=== PATIENT | female | born 1970 | race Caucasian/White ===

== ENCOUNTER → 2017-04-19 10:15 | Outpatient (CLI) | payer MEDICAID ==
[2016-07-28 09:26] VITALS: BMI 24.7
[~2017-04-19 10:15] MED LIST: AMITRIPTYLINE H50 MG PO; ANASTROZOLE1 MG PO; ASPIRIN EC81 M1 PO; BACLOFEN10 MG PO; BAYER CHEWABLE81 MG PO; BENTYL 20 MG TA20 MG PO; BRILINTA90 MG PO; CYCLOBENZAPRINE10 MG PO; CYMBALTA60 MG PO; D-AMPHETAMINE PO; EFFEXOR XR150 MG PO; EFFEXOR XR75 MG PO; HYDROCODON-ACE1 EAC7 PO; HYDROCODONE-APA1 TAB PO; KLONOPIN0.5 MG PO; KLONOPIN1 MG PO; LISINOPRIL10 MG PO; LISINOPRIL2.5 MG PO; LOPRESSOR25 MG PO; OXYBUTYNIN CHLOR5 MG PO; PLAVIX75 MG PO; PRAVACHOL20 MG PO; PRILOSEC20 MG PO; REQUIP1 MG PO; REQUIP4 MG; VALIUM5 MG PO; WELLBUTRIN75 MG PO; XARELTO20 MG PO; ZANAFLEX4 MG PO
== END | disposition home or self-care (01) ==
LOC: D.MRI 10:15
DX: G89.4 Chronic pain syndrome (principal); M54.2 Cervicalgia; M47.892 Other spondylosis, cervical region

== ENCOUNTER 2017-06-09 11:12 | Outpatient (CLI) | payer MEDICAID ==
[~2017-06-09] VITALS: Ht 170.2 cm; Wt 68.2 kg
--- NOTE | ~2017-06-09 | HEMODYNAMI ---
PATIENT:FABIAN CHEEMA MEDICAL RECORD: [id number] : 68 LOCATION:[facility] ADMISSION DATE: 06/09/17 Generatedon:06/09/201713:43 Patient name: FABIAN CHEEMA Patient #: [id number] SSN: : [birth year] Date of study: 06/09/2017 Page: Of Hemodynamic Procedure Report Patient Data Patient Demographics Procedure consent was obtained First Name: FABIAN Gender: Female Last Name: ANETTE : 1970 Middle Initial: D Age: 46 year(s) Patient #: [id number] Race: Additional ID: [id number] Contact details [address]: [address] [place] [address] [place] State: [place] City: [place] Zip code: [address] Past Medical History Allergies Allergen Reaction Date Comments Reported Penicillins 12/06/2014 Other allergy 06/09/2017 PCN, Ropinirole Admission Admission Data Admission Date: 06/09/2017 Admission Time: 11:12 Height (in.): 68 BSA: 1.84 (m2) Height (cm.): 172.72 BMI: 23.72 (kg/m2) Weight (lbs.): 156 Weight (kg.): 70.76 Lab Results Lab Result Date: 06/09/2017 Lab Result Time: 0:00 Biochemistry Name Units Result Min Max BUN mg/dl 10 --(-*--)-- 7 18 Creatinine mg/dl 0.6 --(*---)-- 0.6 1.3 CBC Name Units Result Min Max Hemoglobin g/dl 14.9 --(-*--)-- 13.5 17.5 Procedure Procedure Types Cath Procedure Diagnostic Procedure [facility] w/Coronaries PCI Procedure Coronary Stent Initial Miscellaneous Procedures Moderate Sedation up to 15 minutes Procedure Description Procedure Date Procedure Date: 06/09/2017 Procedure Start Time: 13:13 Procedure End Time: 13:38 Procedure Staff Name Function Alok Pan RT Scrub Scottie Beaulieu MD Performing Physician Darcy Villa RN Nurse Floresita Escamilla RT Monitor Procedure Data Cath Procedure Fluoroscopy Diagnostic fluoroscopy Total fluoroscopy Time: 4.7 time: 4.7 min min Diagnostic fluoroscopy Total fluoroscopy dose: 839 dose: 839 mGy mGy Contrast Material Contrast Material Type Amount (ml) Isovue 300 111 Entry Location Entry Primary Successful Side Size Upsize Upsize Entry Closure Succes sful Closure Location (Fr) 1 (Fr) 2 (Fr) Remarks Device Remarks Femoral Right 5 Fr 6 Fr Exoseal artery Short Estimated blood loss: 10 ml Diagnostic catheters Device Type Used For End Catheter Placement Cordis 5Fr JL 4.0 Procedure Catheter (MP) Cordis 5Fr 3DRC Catheter Procedure (MP) Cordis 5Fr Pigtail Procedure Catheter (MP) Procedure Complications No complications Procedure Medications Medication Administration Route Dosage Oxygen NC 2 l/min Heparin Flush Bag added to field 2 bags (1000units/500ml NS) Lidocaine 2% added to field 20 Refer to Anesthesia Notes for Sedation Medications Heparin Bolus I.V. 4000 units Integrilin (Bolus I.V. 6.2 ml 2mg/ml) Plavix P.O. 600 mg Hemodynamics Rest HGB: 14.9 (g/dl) O2 Consumption: Estimated: 175.92 (ml/min) O2 Consumption index ed: Estimated:95.61 (ml/min/m) Heart Rate: 61 (bpm) Pressure Samples Time Site Value (mmHg) Purpose Heart Use Rate(bpm) 13:19 LV 100/2,19 Snapshot 52 13:20 LV 102/3,21 Pullback 53 13:20 AO 98/54(74) Pullback 53 Gradients Valve Time Site 1 Site 2 Mean SEP/DFP Peak To Heart Use (mmHg) (sec/min) Peak Rate (mmHg) (bpm) Aortic 13:20 LV AO 10 15 4 53 102/3,21 98/54(74) Calculations Valve P-P Mean Valve Index Valve Source Name Gradient Area Flow (cm2) Aortic 4 10 4 10 Snapshots Pre Cath Intra NCS Post Cath Vital Signs Time Heart Resp SPO2 NIBP (mmHg) Rhythm Pain Status Sedation Rate (ipm) (%) Level (bpm) 12:52:55 62 32 99 144/68(118) NSR 4 (11) , 10(A) Distressing 12:57:13 58 19 100 141/80(119) NSR 4 (11) , 10(A) Distressing 13:01:27 62 30 100 148/85(136) NSR 4 (11) , 10(A) Distressing 13:05:42 59 18 99 147/84(124) NSR 4 (11) , 8(A) Distressing 13:09:51 61 16 97 108/67(83) NSR 0 (11) , No 6(A) pain 13:13:59 52 16 99 109/62(86) NSR 0 (11) , No 6(A) pain 13:18:11 51 16 99 98/52(73) NSR 0 (11) , No 6(A) pain 13:22:19 52 16 99 97/53(73) NSR 0 (11) , No 6(A) pain 13:26:27 55 16 99 94/51(68) NSR 0 (11) , No 6(A) pain 13:30:33 52 14 99 93/52(66) NSR 0 (11) , No 6(A) pain 13:34:34 58 14 99 110/67(85) NSR 0 (11) , No 6(A) pain 13:41:16 68 16 99 155/88(107) NSR 0 (11) , No 8(A) pain Medications Time Medication Route Dose Verified Delivered Reason Notes Effectiveness by by 12:55:02 Oxygen NC 2 Scottie Darcy Per physician l/min St. Erik Villa RN, MD 12:55:12 Heparin Flush added 2 Scottie Rubin used for [facility] (1000units/500ml field MD PATHAK NS) 12:55:21 Lidocaine 2% added 20ml Scottie Rubin used for to vial [place] procedure field MD PATHAK 13:06:34 Refer to Scottie Rubin Per physician Dr Simmons Anesthesia Notes St. Erik Beaulieu at for Sedation MD PATHAK bedside Medications for sedation 13:21:53 Heparin Bolus I.V. 4000 Scottie Darcy for dose units St. Erik Villa RN anticoagulation verified wt dr edwards 13:24:03 Integrilin I.V. 6.2 Scottie Darcy for wasted (Bolus 2mg/ml) ml St. Erik Villa RN antiplatelet 3.8ml MD therapy 13:41:26 Plavix P.O. 600 Scottie Taveras for mg BrittneeHayes Villa RN antiplatelet MD therapy Procedure Log Time Note 12:38:37 Patient Height : 172.72 cm 12:38:44 Patient Weight : 70.76 kg 12:40:29 Diagnostic Cath status Elective 12:40:31 Alok Pan RT(R) (CV) sent for patient. Start room use. 12:40:33 Time tracking: Regular hours 12:40:38 Plan of Care:Hemodynamics will remain stable., Cardiac rhythm will remain stable., Comfort level will be maintained., Respiratory function will remain adequate., Patient/ family verbilizes understanding of procedure., Procedure tolerated without complication., Recovers from procedure without complications.. 12:40:48 Patient received from Pre/Post Procedure Room to CCL 2 Alert and oriented. Tansferred to table in Supine position. 12:41:49 H&P Date Dictated: 06/02/2017 Within 30 days and on chart., H&P Addendum completed by physician on day of procedure. (MUST COMPLETE FOR ALL OUTPATIENTS). 12:41:58 Family in waiting room. 12:42:00 Patient NPO since Midnight. 12:42:28 Patient allergic to Other allergyPCN, Ropinirole 12:51:34 Correct patient and procedure confirmed by team. 12:51:34 Warm blankets applied, and sandra hugger turned on for patient comfort. 12:51:36 Signed procedure consent form obtained from patient. 12:51:38 ECG and BP/O2 sat monitors applied to patient. 12:51:39 Vital chart was started 12:51:43 Baseline sample Acquired. 12:51:47 Rhythm: sinus rhythm 12:51:48 Full Disclosure recording started 12:51:53 Is the patient allergic to Iodine/contrast media? No. 12:52:01 Is patient on blood thinner?No 12:52:06 Patient diabetic? No. 12:52:39 Snore? Yes 12:52:40 Sleep apnea? No 12:52:45 Dentures? No ? 12:52:52 Patient pain scale 4/10 ?. 12:53:08 IV patent on arrival in left forearm with 0.9% NaCl at [facility]. 12:53:56 Lab Result : Hemoglobin 14.9 g/dl 12::56 Lab Result : Creatinine 0.6 mg/dl 12:53:56 Lab Result : BUN 10 mg/dl 12:54:01 Lab results completed and on chart. 12:54:05 Right groin area was prepped with chlora-prep and draped in sterile fashion 12:54:07 Sharps counted by scrub and verified by R.N. 12:54:07 Alarms reviewed by R. N. 12:54:08 Physician paged 12:55:02 Oxygen 2 l/min NC was administered by Darcy Villa RN; Per physician; 12:55:12 Heparin Flush Bag (1000units/500ml NS) 2 bags added to field was administered by Scottie Beaulieu MD; used for procedure; 12:55:21 Lidocaine 2% 20ml vial added to field was administered by Scottie Beaulieu MD; used for procedure; 13:02:06 Physician arrived 13:02:08 --------ALL STOP TIME OUT------ 13:02:09 Final Timeout: patient, procedure, and site verified with staff and physician. All members of the team are in agreement. 13:02:12 Right groin site verified by team. 13:02:24 Sedation plan: IV Moderate Sedation Propofol 13:02:31 Use device set Femoral Dx 13:02:32 Bag Decanter opened to sterile field. 13:02:32 Acist Syringe opened to sterile field. 13:02:33 Terumo 5Fr [place] Sheath opened to sterile field. 13:02:33 Medline Cath Pack opened to sterile field. 13:02:34 St Edwin 260cm J .035 wire opened to sterile field. 13:02:35 Acist Manifold opened to sterile field. 13:02:35 Acist Hand Control opened to sterile field. 13:02:36 Tegaderm 4 x 4 opened to sterile field. 13:02:36 Diagnostic Infinity 5Fr Multipack catheter opened to sterile field. 13:06:34 Refer to Anesthesia Notes for Sedation Medications was administered by Scottie Beaulieu MD; Per physician; Dr Simmons at bedside for sedation 13:07:31 Zero performed for pressure channel P1 13:07:45 Zero performed for pressure channel P1 13:13:25 Procedure started. 13:13:33 Local anesthetic to right femoral artery with Lidocaine 2% by Scottie Beaulieu MD.INITIAL ACCESS ONLY 13:14:05 A 5 Fr sheath was inserted into the Right Femoral artery 13:14:37 A Cordis 5Fr JL 4.0 Catheter (MP) was advanced over the wire and used for Procedure. 13:14:46 LCA angiography performed. 13:16:43 Catheter removed. 13:16:50 A Cordis 5Fr 3DRC Catheter (MP) was advanced over the wire and used for Procedure. 13:17:50 Catheter removed. 13:17:58 A Cordis 5Fr Pigtail Catheter (MP) was advanced over the wire and used for Procedure. 13:20:12 EF : 55 % 13:20:15 Catheter removed. 13:20:21 Procedure type changed to Cath procedure, Diagnostic procedure, LHC, LHC w/Coronaries, PCI procedure, Coronary Stent Initial, Miscellaneous Procedures, Moderate Sedation up to 15 minutes 13:21:53 Heparin Bolus 4000 units I.V. was administered by Darcy Villa RN; for anticoagulation; dose verified wtih dr edwards 13:23:22 Vidmind BasixCompak Inflation Kit opened to sterile field. 13:23:23 Guzman Whisper J 300cm 0.014 guide wire opened to sterile field. 13:23:23 Terumo 6Fr [place] Sheath opened to sterile field. 13:23:24 Medtronic Launcher 6Fr EBU 3.5 guide catheter opened to sterile field. 13:23:34 Sheath upsized to a 6 Fr Short. 13:23:48 6 Fr EBU 3.5 guide catheter was inserted over the wire 13:23:51 Wire advanced across lesion. 13:24:03 Integrilin (Bolus 2mg/ml) 6.2 ml I.V. was administered by Darcy Villa RN; for antiplatelet therapy; wasted 3.8ml 13:29:30 Inflation number: 1 A Mozec Rx 3.5 x 14 balloon was prepped and advanced across the Mid LAD, then inflated to 8 LOU for 0:11 (min:sec). 13:29:38 Balloon removed over the wire. 13:32:24 Inflation Number: 2 A Parlin OTW 3.5 x 18 stent was prepped and advanced across the Mid LAD. The stent was deployed at 12 LOU for 0:40 (min:sec). 13:33:00 Stent catheter was removed intact over wire. 13:33:02 Wire removed. 13:33:46 Cordis 6Fr Exoseal opened to sterile field. 13:34:48 Sheath removed intact; hemostasis achieved with Exoseal to the Right Femoral artery. 13:35:00 Procedure ended.(Physican Out) 13:35:14 Fluoroscopy time 04.70 minutes. 13:35:20 Fluoroscopy dose: 839 mGy 13:35:20 Flurop Dose total: 839 13:35:23 Contrast amount:Isovue 300 111ml. 13:35:25 Sharps counted by scrub and verified by R.N. 13:35:27 Insertion/operative site no bleeding no hematoma. 13:36:37 Post-procedure physical assessment completed. ASA score P 2 - A patient with mild systemic disease as per Scottie Beaulieu MD. 13:36:40 Post procedure rhythm: unchanged. 13:36:44 Estimated blood loss: 10 ml 13:36:45 Post procedure instruction explained to patient.Patient verbalizes understanding. 13:36:53 Procedure and supply charges have been captured, reviewed, submitted and are correct. 13:37:34 Procedure Complication : No complications 13:37:37 Vital chart was stopped 13:37:45 See physician's report for complete and final results. 13:37:53 Report given to Pre/Post Procedure Room. 13:37:58 Patient transfered to Pre/Post Procedure Room with Stretcher. 13:38:00 Full Disclosure recording stopped 13:38:00 Procedure ended. 13:38:04 End room use (Document Last) 13:41:26 Plavix 600 mg P.O. was administered by Darcy Villa RN; for antiplatelet therapy; Intervention Summary Intervention Notes Time ActionType Lesion and Equipment Action# Pressure Duration Attributes Used 13:29:30 Inflate Mid LAD Mozec Rx 1 8 00:11 balloon 3.5 x 14 balloon 13:32:24 Place stent Mid LAD Jose OTW 2 12 00:40 3.5 x 18 stent Device Usage Item Name Manufacture Quantity Catalog Hospital Part Current Minima l Lot# / Number Charge Number Stock Stock Serial# Code Anthony Cruz 1 [id number] [id number] 154550 988327 20 Syringe Medical Systems Inc Bag Microtek 1 2002S 139198 81753 157259 5 [place] [employer] Medline Cardinal 1 [id number] 962757 50602 235589 5 Fonmatch Terumo 5Fr Terumo 1 [id number] 968632 284233 217718 [address] [place] [address] [facility] Edwin 1 073461 813892 022550 322452 30 260cm J .035 wire Acist Hand Acist 1 15389 161319 323716 221502 5 Control Medical Systems Inc Acist Acist 1 93565 309718 519794 393417 5 [facility] Medical Systems Inc Diagnostic Cardinal 1 [id number] 839289 93562 318424 30 Infinity Health 5Fr Multipack catheter Tegaderm 4 3M 1 1626W 381502 668407 019881 5 x 4 Cordis 5Fr Cardinal 1 424215 5 JL 4.0 Health Catheter (MP) Cordis 5Fr Cardinal 1 826947 5 3DRC Health Catheter (MP) Cordis 5Fr Cardinal 1 823325 5 Pigtail Health Catheter (MP) [facility] 1 DN6791 217492 310736 119024 15 Lambda OpticalSystems Medical Inflation Kit Terumo 6Fr Terumo 1 KTN300 539386 227465 229828 40 [place] Sheath Guzman Guzman 1 [id number] 288714 668146 490237 5 Whisper J Vascular 300cm 0.014 guide wire Medtronic Medtronic 1 [id number] 048653 71610 163685 3 Launcher 6Fr EBU 3.5 guide catheter Mozec Rx Cardinal 1 [id number] 469635 28055 644092 5 UMOA77 3.5 x 14 Health balloon Parlin OTW Medtronic 1 [id number] 706763 9024103 881532 5 [id number] 3.5 x 18 stent Cordis 6Fr Cardinal 1 EX600 297620 869268 771705 10 [facility] Signature Audit [place] [facility] Stage Time Signature Unsigned Intra-Procedure 06/09/2017 Floresita Escamilla 1:41:57 PM RT(R) Signatures Monitor : Floresita Escamilla Signature : RT Date : Time : [facility] [address] [facility], [facility]
[2017-06-09] MEDS ORDERED: GABAPENTIN100 MG PO (11:50)
[2017-06-09] MEDS ORDERED: TRAZODONE HCL50 MG PO (11:52)
[2017-06-09 11:55] LABS: BASOPHILS 0.4 % (0-2); HEMOGLOBIN 14.9 g/dL (12-16); IMMATURE GRANULOCYTES 0.3 % (0-5); LYMPHOCYTES 28.7 % (15-50); MCH 31.5 pg (26.0-34.0); MCHC 34.7 g/dL (31.0-37.0); MCV 90.9 fL (80.0-100.0); MEAN PLATELET VOLUME 9.9 fL (7.4-10.4); MONOCYTES 7.4 % (2-11); NEUTROPHILS 61.2 % (40-80); PLATELET COUNT 183 10x3/uL (130-400); RBC 4.73 10x6/uL (4.00-5.40); RDW 15.2 % (11.5-14.5); WBC 9.8 10x3/uL (4.8-10.8)
[2017-06-09 12:02] VITALS: BP 152/82; Ht 170.2 cm; Wt 68.2 kg
[2017-06-09 12:03] LABS: CALC OSMOLALITY 281 mosm/kg (275-300); CALCIUM 8.4 mg/dL (8.5-10.1); CARBON DIOXIDE 27.8 mmol/L (21.0-32.0); CHLORIDE - SERUM 106 mmol/L (98-107); CREATININE - SERUM 0.6 mg/dL (0.6-1.3); GLUCOSE 94 mg/dL (74-106); POTASSIUM - SERUM 3.6 mmol/L (3.5-5.1); SODIUM 142 mmol/L (136-145); UREA NITROGEN 10 mg/dL (7-18); eGFR NON AFRICAN AMERICAN > 90 mL/min (90-120)
[2017-06-09] MEDS ORDERED: PLAVIX75 MG PO (13:49)
--- NOTE | 2017-06-09 14:05 | NUR ---
ROOM AIR, NO RESP DISTRESS NOTED. RIGHT GROIN 6F EXOSEAL CDI, NO BLEEDING OR HEMATOMA NOTED. NO C/O CHEST PAIN OR NAUSEA. VSS. INSTRUCTED PT TO KEEP HEAD FLAT ON PILLOW AND RIGHT LEG STRAIGHT.
--- NOTE | 2017-06-09 14:35 | NUR ---
RESTING QUIETLY. ON ROOM AIR, NO RESP DISTRESS NOTED. RIGHT GROIN 6F EXOSEAL CDI, NO BLEEDING OR HEMATOMA NOTED. VSS. NO C/O AT THIS TIME. WILL CONTINUE TO MONITOR.
--- NOTE | 2017-06-09 15:00 | NUR ---
PLAVIX PRESCRIPTION CALLED INTO [facility] ON [address].
--- NOTE | 2017-06-09 15:30 | NUR ---
ROOM AIR, NO RESP DISTRESS. RIGHT GROIN 6F EXOSEAL CDI, NO BLEEDING OR HEMATOMA NOTED. NO C/O PAIN AT THIS TIME. CALL LIGHT WITHIN REACH. VSS.
--- NOTE | 2017-06-09 16:00 | NUR ---
RIGHT GROIN 6F EXOSEAL CDI, NO BLEEDING OR HEMATOMA NOTED. VSS. NO C/O CHEST PAIN OR NAUSEA. NO RESP DISTRESS NOTED. VSS. WILL CONTINUE TO MONITOR.
--- NOTE | 2017-06-09 17:00 | NUR ---
RESTING QUIETLY. ROOM AIR, NO RESP DISTRESS NOTED. RIGHT GROIN 6F EXOSEAL CDI, NO BLEEDING OR HEMATOMA NOTED. VSS.
--- NOTE | 2017-06-09 17:18 | NUR ---
HOB ELEVATED 30 DEGREES. RIGHT GROIN 6F EXOSEAL CDI, NO BLEEDING OR HEMATOMA NOTED. SANDWICH TRAY AND DRINK GIVEN.
--- NOTE | 2017-06-09 17:25 | NUR ---
RECEIVED REPORT FROM ROCHELLE BERMUDEZ. PT VANE DIET, DENIES CHEST PAIN. IV D'C WITH CATH TIP INTACT. FRIEND AT SIDE, DENIES NEEDS
--- NOTE | 2017-06-09 17:55 | NUR ---
UP TO REST ROOM-VOID, WRITTEN AND VERBAL D'C INSTRUCTIONS GIVEN AND UNDERSTOOD. D'C HOME WITH FRIEND
--- NOTE | 2017-06-11 11:07 | OP ---
PATIENT NAME: FABIAN CHEEMA MEDICAL RECORD: [id number] :68 LOCATION:[facility] ADMISSION DATE: SURGEON: SAAD DANG MD DATE OF OPERATION: 06/09/2017 PROCEDURE: Left heart catheterization, selective coronary angiography, right femoral approach. CATHETERS: A 5-Danish sheath, 5/4 left and right Mirna, 5/4 pig. The procedure was tolerated. The patient returned to velasco after PTCA and placed ExoSeal device. FINDINGS: Left ventriculography in 30-degree ZARCO view: Normal wall motion, normal systolic function. CORONARY ANATOMY: LEFT MAIN: Left main is free of disease. LAD: At the end of the previous distal stent shows a discrete 90% plus stenosis. CIRCUMFLEX: Has 2 moderate size OM. OM2 has a restenosis of about 50%. RIGHT CORONARY ARTERY: Again, eccentric restenosis about 50%. IMPRESSION: Critical restenosis LAD. PLAN: Intervention of this vessel momentarily. DESCRIPTION OF PROCEDURE: A 5-Danish sheath was changed for a 6-Danish sheath. EBU guiding catheter provided excellent guide catheter support followed by a 300 cm Whisper wire, wire placed across the occluded LAD at this portion of vessel. Pre-deployment balloon was a 3.0 x 14 mm Mozec balloon, was inflated up to 8 atmospheres. Next, stent deployed was a 3.5 x 18 mm [place] drug-eluting stent inflated up to 14 atmospheres for 45 seconds. Final injection shows excellent resolution of a 90% plus restenosis. No significant residual. MARJORIE flow was 3 throughout the procedure. Integrilin was used in the case. Plavix was loaded in the lab. TRANSINT:[id number] Voice Confirmation ID: [id number] DOCUMENT ID: [id number] SAAD DANG MD at 1107 CC: [id number] DICTATION DATE: 06/09/17 1340 TOBACCO FEEDER CATCHER: 06/09/171951 DEP CLI 06/09/17 [id number] [place] [address]
== END 2017-06-09 18:00 | disposition home or self-care (01) ==
LOC: D.CATH 11:12
PROVIDERS: Internal Medicine Interventional Cardiology
DX: I25.119 Atherosclerotic heart disease of native coronary artery with unspecified angina pectoris (principal); F17.200 Nicotine dependence, unspecified, uncomplicated; Z95.5 Presence of coronary angioplasty implant and graft; Z01.812 Encounter for preprocedural laboratory examination; I10 Essential (primary) hypertension

== ENCOUNTER → 2017-06-18 10:51 | Outpatient (CLI) | payer MEDICAID ==
[2017-06-09 12:02] VITALS: BMI 23.5
[~2017-06-18 10:51] MED LIST changes: +GABAPENTIN100 MG PO; +TRAZODONE HCL50 MG PO
== END | disposition home or self-care (01) ==
LOC: D.US 10:51
DX: N85.02 Endometrial intraepithelial neoplasia [EIN] (principal)

== ENCOUNTER 2017-06-20 15:15 | Emergency (ER) | payer MEDICAID ==
[2017-06-09 12:02] VITALS: BMI 23.5
[2017-06-20 15:53] LABS: BASOPHILS 0.7 % (0-2); EOSINOPHILS 3.3 % (0-7); HEMATOCRIT 43.4 % (36.0-48.0); HEMOGLOBIN 14.9 g/dL (12-16); IMMATURE GRANULOCYTES 0.1 % (0-5); LYMPHOCYTES 29.1 % (15-50); MCH 31.5 pg (26.0-34.0); MCHC 34.3 g/dL (31.0-37.0); MCV 91.8 fL (80.0-100.0); MEAN PLATELET VOLUME 9.9 fL (7.4-10.4); MONOCYTES 8.4 % (2-11); NEUTROPHILS 58.4 % (40-80); PLATELET COUNT 172 10x3/uL (130-400); RBC 4.73 10x6/uL (4.00-5.40); RDW 14.5 % (11.5-14.5); WBC 8.4 10x3/uL (4.8-10.8)
[2017-06-20 15:58] LABS: APPEARANCE CLEAR (CLEAR); BILIRUBIN NEGATIVE (NEGATIVE); COLOR YELLOW (YELLOW); GLUCOSE NEGATIVE (NEGATIVE); KETONE SMALL mg/dL (NEGATIVE); LEUKOCYTE ESTERASE NEGATIVE (NEGATIVE); NITRITE NEGATIVE (NEGATIVE); PH 5.5 (5.0-6.0); PROTEIN NEGATIVE (NEGATIVE); UROBILINOGEN NORMAL (NORMAL)
[2017-06-20 16:05] LABS: BACTERIA FEW /hpf (NONE SEEN); EPITHELIAL CELLS 0-5 /hpf (0-5); MUCUS >1+ /lpf (NONE SEEN); RED CELLS - URINE 0-5 /hpf (0-5); WHITE CELLS - URINE 0-5 /hpf (0-5)
[2017-06-20 16:06] LABS: HYALINE CAST OCC /lpf (NONE SEEN)
[2017-06-20 16:15] LABS: ALBUMIN 3.7 g/dL (3.4-5.0); ALKALINE PHOSPHATASE 54 U/L (46-116); ALT (SGPT) 20 U/L (10-68); BILIRUBIN - TOTAL 0.36 mg/dL (0.2-1.3); CALC OSMOLALITY 274 mosm/kg (275-300); CALCIUM 8.8 mg/dL (8.5-10.1); CARBON DIOXIDE 26.6 mmol/L (21.0-32.0); CHLORIDE - SERUM 103 mmol/L (98-107); CREATININE - SERUM 0.6 mg/dL (0.6-1.3); GLUCOSE 101 mg/dL (74-106); POTASSIUM - SERUM 3.9 mmol/L (3.5-5.1); PROTEIN - SERUM 7.3 g/dL (6.4-8.2); SODIUM 138 mmol/L (136-145); UREA NITROGEN 9 mg/dL (7-18); eGFR NON AFRICAN AMERICAN > 90 mL/min (90-120)
[2017-06-20 16:19] LABS: CHOL - HDL RATIO 4.4 ratio (2.3-4.1); CHOLESTEROL, TOTAL 198 mg/dL (0-200); CKMB 0.5 U/L (0.0-3.6); CREATINE KINASE 58 UL (21-215); HDL CHOLESTEROL 45 mg/dL (32-96); LDL CHOLESTEROL 129 mg/dL (0-100); LDL-HDL RATIO 2.9 ratio (1.5-3.5); TRIGLYCERIDE 123 mg/dL (30-200); TROPONIN-I < 0.017 ng/mL (0.000-0.060)
== END 2017-06-20 17:09 | disposition home or self-care (01) ==
LOC: D.ER 15:15
PROVIDERS: Emergency Medicine; Nurse Practitioner Family
DX: R07.89 Other chest pain (principal); I10 Essential (primary) hypertension; R00.1 Bradycardia, unspecified

== ENCOUNTER 2017-07-24 23:06 | Emergency (ER) | payer MEDICAID | END 2017-07-25 00:40 | disposition home or self-care (01) | LOC: D.ER 23:06 | DX: N39.0 Urinary tract infection, site not specified (principal); I10 Essential (primary) hypertension; F17.200 Nicotine dependence, unspecified, uncomplicated ==

== ENCOUNTER 2017-09-19 21:39 | Observation (INO) | payer MEDICAID ==
[~2017-09-19] VITALS: Ht 170.2 cm; Wt 69.5 kg
--- NOTE | ~2017-09-19 | HEMODYNAMI ---
PATIENT:FABIAN CHEEMA MEDICAL RECORD: [id number] : 68 [facility]ATION[id number] ADMISSION DATE: 09/19/17 Generatedon:09/20/201711:52 Patient name: FABIAN CHEEMA Patient #: [id number] SSN: : [birth year] Date of study: 09/20/2017 Page: Of Hemodynamic Procedure Report Patient Data Patient Demographics First Name: FABIAN Gender: Female Last Name: ANETTE : 1970 [facility] Initial: D Age: 46 year(s) Patient #: [id number] Race: Additional ID: [id number] Contact details Address: [address] [place] [address] [place] State: [place] City: [place] Zip code: [address] Past Medical History Allergies Allergen Reaction Date Comments Reported Penicillins 12/06/2014 Other allergy 06/09/2017 PCN, Ropinirole Other allergy 09/20/2017 PCN, HYDROCODONE, ROPINIROLE Admission Admission Data Admission Date: 09/19/2017 Admission Time: 22:24 Room #: D.2122 Height (in.): 5.7 BSA: 0.3 (m2) Height (cm.): 14.48 BMI: 3245.94 (kg/m2) Weight (lbs.): 150 Weight (kg.): 68.04 Lab Results Lab Result Date: 09/20/2017 Lab Result Time: 0:00 Biochemistry Name Units Result Min Max BUN mg/dl 7 --(*---)-- 7 18 Creatinine mg/dl 0.8 --(-*--)-- 0.6 1.3 CBC Name Units Result Min Max Hemoglobin g/dl 15.2 --(-*--)-- 13.5 17.5 Procedure Procedure Types Cath Procedure Diagnostic Procedure LHC LHC w/Coronaries Miscellaneous Procedures Moderate Sedation up to 45 minutes Procedure Description Procedure Date Procedure Date: 09/20/2017 Procedure Start Time: 11:05 Procedure End Time: 11:51 Procedure Staff Name Function Eusebio Alvarez MD Performing Physician Kamreon Tinoco RN Nurse Jacque Alejandra RN Nurse Charley Grant RT Monitor Eddie Wan RT Monitor Chirs Boykin RT Scrub Procedure Data Cath Procedure Fluoroscopy Diagnostic fluoroscopy Total fluoroscopy Time: 2.9 time: 2.9 min min Diagnostic fluoroscopy Total fluoroscopy dose: 454 dose: 454 mGy mGy Contrast Material Contrast Material Type Amount (ml) Isovue 300 60 Entry Location Entry Primary Successful Side Size Upsize Upsize Entry Closure Succes sful Closure Location (Fr) 1 (Fr) 2 (Fr) Remarks Device Remarks Femoral Right 5 Fr 6 Fr artery Short Estimated blood loss: 5 ml Diagnostic catheters Device Type Used For End Catheter Placement Cordis 5Fr JL 4.0 Procedure Catheter (MP) Cordis 5Fr 3DRC Catheter Procedure (MP) Cordis 5Fr Pigtail Procedure Catheter (MP) Procedure Complications No complications Procedure Medications Medication Administration Route Dosage Oxygen NC 2 l/min Lidocaine 2% added to field 20 Brilinta P.O. 90 mg Heparin Flush Bag added to field 2 bags (1000units/500ml NS) 0.9% NaCl I.V. 100 ml/hr Versed I.V. 1 mg Versed I.V. 1 mg Heparin Bolus I.V. 3000 units Adenosine IV 1mg/ml I.V. drip 140 mcg/kg/min Hemodynamics Rest BSA: 0.3 (m2) HGB: 15.2 (g/dl) O2 Consumption: Estimated: 28.25 (ml/min) O2 Cons umption indexed: Estimated:94.17 (ml/min/m) Heart Rate: 57 (bpm) Pressure Samples Time Site Value (mmHg) Purpose Heart Use Rate(bpm) 11:15 LV 158/-5,16 EDP 56 11:16 AO 151/67(104) Pullback 37 11:16 LV 138/7,12 Pullback 37 Gradients Valve Time Site 1 Site 2 Mean SEP/DFP Peak To Heart Use (mmHg) (sec/min) Peak Rate (mmHg) (bpm) Aortic 11:16 LV AO 0 8 0 37 138/7,12 151/67(104) Calculations Valve P-P Mean Valve Index Valve Source Name Gradient Area Flow (cm2) Aortic 0 0 0 0 Snapshots Pre Cath Intra NCS Post Cath Vital Signs Time Heart Resp SPO2 etCO2 NIBP (mmHg) Rhythm Pain Sedation Rate (ipm) (%) (mmHg) Status Level (bpm) 10:50:04 59 18 96 0 167/83(132) NSR 0 (11) 10(A) , No pain 10:54:48 61 20 97 0 166/93(134) NSR 0 (11) 10(A) , No pain 10:59:33 68 16 98 40.3 151/94(124) NSR 0 (11) 10(A) , No pain 11:04:14 57 14 95 43.3 147/84(121) NSR 0 (11) 10(A) , No pain 11:09:27 52 16 99 40.2 128/64(95) NSR 0 (11) 10(A) , No pain 11:14:43 55 15 95 41 147/80(119) NSR 0 (11) 10(A) , No pain 11:19:26 57 14 95 42.6 140/81(117) NSR 0 (11) 10(A) , No pain 11:24:06 59 14 92 40.3 154/86(126) NSR 0 (11) 10(A) , No pain 11:28:49 57 15 92 41 153/79(123) NSR 0 (11) 10(A) , No pain 11:33:36 57 17 94 44.1 145/72(109) NSR 0 (11) 10(A) , No pain 11:38:18 56 14 92 42.6 149/76(121) NSR 0 (11) 10(A) , No pain 11:43:01 53 13 95 43.3 156/77(119) NSR 0 (11) 10(A) , No pain 11:47:44 57 14 94 39.5 138/77(109) NSR 0 (11) 10(A) , No pain Medications Time Medication Route Dose Verified Delivered Reason N otes Effectiveness by by 10:54:44 Oxygen NC 2 l/min Eusebio Jacque used for Antonio Alejandra RN procedure 10:55:03 Lidocaine 2% added 20ml vial Eusebio Eusebio for local to Antonio Alvarez MD anesthetic field 10:55:21 Brilinta P.O. 90 mg Eusebio Jacque for Antonio Alejandra RN antiplatelet MD therapy 10:55:34 Heparin Flush added 2 bags Eusebio Eusebio used for Bag to Antonio Alvarez MD procedure (1000units/500ml field NS) 10:55:48 0.9% NaCl I.V. 100 ml/hr Eusebio Jacque Per physician Antonio Alejandra RN, MD 11:05:50 Versed I.V. 1 mg Eusebio Jacque for sedation Antonio Alejandra RN, MD 11:09:13 Versed I.V. 1 mg Eusebio Jacque for sedation Antonio Alejandra RN, MD 11:22:59 Heparin Bolus I.V. 3000 units Eusebio Jacque for Antonio Alejandra RN anticoagulation 11:44:02 Adenosine IV I.V. 140 Eusebio Jacque Per physician d rip 1mg/ml drip mcg/kg/min Antonio fair MD not used. Procedure Log Time Note 10:20:08 Kameron Tinoco RN sent for patient. Start room use. 10:26:09 Time tracking: Regular hours 10:26:15 Plan of Care:Hemodynamics will remain stable., Cardiac rhythm will remain stable., Comfort level will be maintained., Respiratory function will remain adequate., Patient/ family verbilizes understanding of procedure., Procedure tolerated without complication., Recovers from procedure without complications.. 10:30:47 Lab Result : Creatinine 0.8 mg/dl 10:30:47 Lab Result : BUN 7 mg/dl 10:30:47 Lab Result : Hemoglobin 15.2 g/dl 10:30:52 Lab results completed and on chart. 10:45:52 Patient received from PCU to CCL 1 Alert and oriented. Tansferred to table in Supine position. 10:45:53 Warm blankets applied, and sandra hugger turned on for patient comfort. 10:45:54 Correct patient and procedure confirmed by team. 10:45:55 ECG and BP/O2 sat monitors applied to patient. 10:49:08 Vital chart was started 10:51:05 Baseline sample Acquired. 10:51:11 Rhythm: sinus rhythm 10:51:12 Full Disclosure recording started 10:51:17 Pre-procedure instructions explained to patient. 10:51:18 Pre-op teaching completed and patient verbalized understanding. 10:51:21 Family in patients room. 10:51:23 Patient NPO since Midnight. 10:51:54 Patient allergic to Other allergyPCN, HYDROCODONE, ROPINIROLE 10:51:58 Is the patient allergic to Iodine/contrast media? No. 10:52:05 Is patient on blood thinner?Yes 10:52:09 ACC The patient was administered the following blood thiners within the last 24 hours: ACCBrilinta 10:52:11 Patient diabetic? No. 10:53:22 Patient not . Patient has had tubal. 10:53:26 Previous problem with sedation/anesthesia? No ? 10:53:27 Snore? Yes 10:53:28 Sleep apnea? No 10:53:29 Deviated septum? No 10:53:31 Opens mouth fully? Yes 10:53:31 Sticks out tongue? Yes 10:53:34 Airway obstruction? No ? 10:53:36 Dentures? No ? 10:53:40 Pre procedure: right dorsailis pedis pulse 2+ Normal; easily identifiable; not easily obliterated 10:53:43 Patient pain scale 0/10 ?. 10:54:12 IV patent on arrival in right forearm with 0.9% NaCl at [facility]. 10:54:18 Right groin area was prepped with chlora-prep and draped in sterile fashion 10:54:20 Alarms reviewed by R. N. 10:54:21 Sharps counted by scrub and verified by R.N. 10:54:44 Oxygen 2 l/min NC was administered by Jacque Alejandra RN; used for procedure; 10:55:03 Lidocaine 2% 20ml vial added to field was administered by Eusebio Alvarez MD; for local anesthetic; 10:55:21 Brilinta 90 mg P.O. was administered by Jacque Alejandra RN; for antiplatelet therapy; 10:55:34 Heparin Flush Bag (1000units/500ml NS) 2 bags added to field was administered by Eusebio Alvarez MD; used for procedure; 10:55:48 0.9% NaCl 100 ml/hr I.V. was administered by Jacque Alejandra RN; Per physician; 10:56:15 Patient Height : 5.7 inches 10:56:22 Patient Weight : 150 lbs 10:57:43 Physician arrived 10:57:43 --------ALL STOP TIME OUT------ 10:57:44 Final Timeout: patient, procedure, and site verified with staff and physician. All members of the team are in agreement. 10:57:47 Right groin site verified by team. 10:57:50 Physical assessment completed. ASA score P 2 - A patient with mild systemic disease as per Eusebio Alvarez MD. 10:57:54 Sedation plan: IV Moderate Sedation Versed, Fentanyl 10:58:44 Use device set Femoral Dx 10:58:47 Acist Manifold opened to sterile field. 10:58:48 Tegaderm 4 x 4 opened to sterile field. 10:58:48 Acist Hand Control opened to sterile field. 10:58:50 Acist Syringe opened to sterile field. 10:58:50 Bag Decanter opened to sterile field. 10:58:51 Medline Cath Pack opened to sterile field. 10:58:51 Terumo 5Fr Mineral Sheath opened to sterile field. 10:58:52 St Edwin 260cm J .035 wire opened to sterile field. 10:58:53 Diagnostic Infinity 5Fr Multipack catheter opened to sterile field. 11:05:25 Procedure started. 11:05:33 Local anesthetic to right femoral artery with Lidocaine 2% by Eusebio Alvarez MD.INITIAL ACCESS ONLY 11:05:39 Zero performed for pressure channel P1 11:05:48 Zero performed for pressure channel P1 11:05:50 Versed 1 mg I.V. was administered by Jacque Alejandra RN; for sedation; 11:06:51 Access obtained with 4Fr micropunture. 11:07:28 A 5 Fr sheath was inserted into the Right Femoral artery 11:09:13 Versed 1 mg I.V. was administered by Jacque Alejandra RN; for sedation; 11:09:30 A Cordis 5Fr JL 4.0 Catheter (MP) was advanced over the wire and used for Procedure. 11:09:58 LCA angiography performed. 11:11:22 Catheter removed. 11:11:52 A Cordis 5Fr 3DRC Catheter (MP) was advanced over the wire and used for Procedure. 11:12:47 RCA angiography performed. 11:13:39 Catheter removed. 11:14:16 A Cordis 5Fr Pigtail Catheter (MP) was advanced over the wire and used for Procedure. 11:15:00 Injector settings: Ml/sec: 12, Volume: 8, 11:15:04 LV hemodynamics recorded. 11:15:07 LV gram done using ZARCO 11:16:02 EF : 45 % 11:16:15 Catheter removed. 11:21:32 Terumo 6Fr Mineral Sheath opened to sterile field. 11:21:42 Sheath upsized to a 6 Fr Short. 11:22:25 Merit BasixCompak Inflation Kit opened to sterile field. 11:22:59 Heparin Bolus 3000 units I.V. was administered by Jacque Alejandra RN; for anticoagulation; 11:23:14 Ecovision Runway 6Fr ART 3.5 SH guide catheter opened to sterile field. 11:29:30 6 Fr ART 3.5SH\ guide catheter was inserted over the wire 11:30:28 Uvalda FFR 300cm Primewire opened to sterile field. 11:34:25 Zero performed for pressure channel P1 11:40:00 FFR REMOVED. UNABLE TO FFR DUE TO EQUIPMENT ERROR. CATHETER AND FFR WIRE REMOVED. 11:43:22 Guide catheter removed. 11:43:25 Wire removed. 11:43:33 Cordis 6Fr Exoseal opened to sterile field. 11:43:49 Copilot Bleedback Control Valve opened to sterile field. 11:44:02 Adenosine IV 1mg/ml 140 mcg/kg/min I.V. drip was administered by Jacque Alejandra RN; Per physician; drip wasted, not used. 11:44:19 Procedure ended.(Physican Out) 11:44:32 Fluoroscopy time 02.90 minutes. 11:44:39 Flurop Dose total: 454 11:44:39 Fluoroscopy dose: 454 mGy 11:44:45 Contrast amount:Isovue 300 60ml. 11:44:46 Sharps counted by scrub and verified by R.N. 11:44:56 Post-op/insertion site Right Femoral artery dressed using a 4 x 4 and Tegaderm. 11:45:03 Post right femoral artery:stable, soft, clean and dry 11:48:12 Post Procedure Pulses reassessed and unchanged 11:48:17 Post procedure: right dorsailis pedis pulse 2+ Normal; easily identifiable; not easily obliterated. 11:48:20 Post-procedure physical assessment completed. ASA score P 2 - A patient with mild systemic disease as per Eusebio Alvarez MD. 11:48:23 Post procedure rhythm: unchanged. 11:48:28 Estimated blood loss: 5 ml 11:48:30 Post procedure instruction explained to patient.Patient verbalizes understanding. 11:48:30 Patient needs reinforcement of post procedure teaching. 11:49:06 Procedure type changed to Cath procedure, Diagnostic procedure, LHC, LHC w/Coronaries, Miscellaneous Procedures, Moderate Sedation up to 45 minutes 11:50:20 Cook 4Fr Micropuncture Set ([id number]) opened to sterile field. 11:51:13 Procedure and supply charges have been captured, reviewed, submitted and are correct. 11:51:16 Procedure Complication : No complications 11:51:20 Vital chart was stopped 11:51:21 See physician's report for complete and final results. 11:51:28 Report given to PCU. 11:51:34 Patient transfered to PCU with Bed. 11:51:37 Procedure ended. 11:51:37 Full Disclosure recording stopped 11:51:49 End room use (Document Last) Device Usage Item Name Manufacture Quantity Catalog Number Hospital Part Current Min imal Lot# / Charge Number Stock Stock Serial# Code Acist Acist 1 14927 443048 925357 271890 5 Manifold Medical [employer] Inc Tegaderm 4 x 3M 1 [id number] 624685 556001 052804 5 4 Acist Hand Acist 1 31522 575153 088785 880550 5 Control Medical Systems Inc Acist Syringe Acist 1 95665 025287 848696 506929 20 Medical Systems Inc Bag Decanter Microtek 1 2002S 167473 10894 978477 5 Medical Inc. Medline Cath Cardinal 1 [id number] 836019 45264 917738 5 Pack Health Terumo 5Fr Terumo 1 [id number] 610014 663465 336605 [address] Edwin [address] St Edwin 1 978508 847933 109564 824760 30 J .035 wire Diagnostic Cardinal 1 [id number] 017660 46971 501195 30 Infinity 5Fr Health Multipack catheter Cordis 5Fr JL Cardinal 1 717202 5 4.0 Catheter Health (MP) Cordis 5Fr Cardinal 1 204550 5 3DRC Catheter Health (MP) Cordis 5Fr Cardinal 1 015432 5 Pigtail Health Catheter (MP) Terumo 6Fr Terumo 1 LRE436 627377 300007 859170 40 Mineral Sheath Merit Merit 1 CE4121 490910 094293 719779 15 BasixCompak Medical Inflation Kit Langdon Sci Langdon 1 [id number] 417057 129033 143953 [address] 6Fr Scientific ART 3.5 SH guide catheter Uvalda FFR Uvalda 1 8300 070345 35970 830454 1 300cm Primewire Cordis 6Fr Cardinal 1 EX600 196196 960270 138011 10 Exoseal Health Copilot Guzman 1 [id number] 059381 435540 490494 5 Bleedback Vascular Control Valve Cook 4Fr Cook Medical 1 F11139 241880 946501 128996 5 Micropuncture Set ([id number]) Signature Audit [place] Stage Time Signature Unsigned Intra-Procedure 09/20/2017 Charley Grant 11:52:32 AM RT(R) Signatures Monitor : Charley Grant Signature : RT Date : Time : Monitor : Eddie Wan RT Signature : Date : Time : [place] [id number] [place] [address]
[2017-09-19 22:09] LABS: BASOPHILS 0.5 % (0-2); EOSINOPHILS 2.5 % (0-7); HEMATOCRIT 43.9 % (36.0-48.0); HEMOGLOBIN 15.2 g/dL (12-16); IMMATURE GRANULOCYTES 0.3 % (0-5); LYMPHOCYTES 31.3 % (15-50); MCH 31.1 pg (26.0-34.0); MCHC 34.6 g/dL (31.0-37.0); MEAN PLATELET VOLUME 10.4 fL (7.4-10.4); MONOCYTES 8.6 % (2-11); NEUTROPHILS 56.8 % (40-80); PLATELET COUNT 206 10x3/uL (130-400); RBC 4.88 10x6/uL (4.00-5.40); RDW 12.7 % (11.5-14.5); WBC 9.9 10x3/uL (4.8-10.8)
[2017-09-19 22:22] LABS: ALBUMIN 3.8 g/dL (3.4-5.0); ALKALINE PHOSPHATASE 63 U/L (46-116); ALT (SGPT) 23 U/L (10-68); BILIRUBIN - TOTAL 0.24 mg/dL (0.2-1.3); CALC OSMOLALITY 274 mosm/kg (275-300); CALCIUM 8.9 mg/dL (8.5-10.1); CARBON DIOXIDE 25.9 mmol/L (21.0-32.0); CHLORIDE - SERUM 101 mmol/L (98-107); CREATININE - SERUM 0.8 mg/dL (0.6-1.3); GLUCOSE 120 mg/dL (74-106); POTASSIUM - SERUM 3.9 mmol/L (3.5-5.1); PROTEIN - SERUM 7.6 g/dL (6.4-8.2); SODIUM 138 mmol/L (136-145); UREA NITROGEN 7 mg/dL (7-18); eGFR NON AFRICAN AMERICAN 81 mL/min (90-120)
[2017-09-19 22:33] LABS: CHOL - HDL RATIO 4.4 ratio (2.3-4.1); CHOLESTEROL, TOTAL 224 mg/dL (0-200); CKMB 0.2 U/L (0.0-3.6); CREATINE KINASE 53 UL (21-215); HDL CHOLESTEROL 51 mg/dL (32-96); LDL CHOLESTEROL 144 mg/dL (0-100); LDL-HDL RATIO 2.8 ratio (1.5-3.5); TRIGLYCERIDE 147 mg/dL (30-200); TROPONIN-I < 0.017 ng/mL (0.000-0.060)
--- NOTE | 2017-09-19 23:09 | NUR ---
PT ARRIVED VIA W/C FROM ER WIT DX CP. NO DISTRESS NOTED. WILL CONTINUE TO MONITOR..
[2017-09-19 23:32] VITALS: BP 165/84; Ht 170.2 cm; Wt 69.5 kg
[2017-09-19] MEDS ORDERED: ULTRAM50 MG PO (23:51)
[2017-09-19] MEDS ORDERED: BRILINTA90 MG PO (23:51)
[2017-09-19] MEDS ORDERED: ISOSORBIDE MONO60 M1 PO (23:53)
--- NOTE | 2017-09-19 23:56 | NUR ---
ADMISSION ASSESSMENT, HISTORY AND HOME MED LIST COMPLETED. VSS. SR PER CM HR 64. IV TO RFA SL. PT STATES CP NOW 12/18 AND DULL. WILL CONTINUE TO MONITOR. INFORMED NPO AFTER MIDNIGHT. WILL CONTINUE TO MONITOR.
[2017-09-20 00:38] VITALS: BP 165/84
--- NOTE | 2017-09-20 02:26 | NUR ---
PT RESTING WITH EYES CLOSED. RESP EVEN AND REGULAR. SR UP X2, CALL LIGHT WITHIN REACH.
--- NOTE | 2017-09-20 03:19 | NUR ---
MORPHINE 4MG,ZOFRAN 4MG SIVP GIVEN FOR C/O CP 04/17 AND NAUSEA. WILL CONTINUE TO MONITOR.
--- NOTE | 2017-09-20 04:13 | NUR ---
PT STATES CP NOW 12/18. WILL CONTINUE TO MONITOR..
[2017-09-20 04:24] VITALS: BP 124/71
--- NOTE | 2017-09-20 06:37 | NUR ---
VSS FOR THE SHIFT. SR/SB PER CM. PT STATED IV MORPHINE CONTROLLED CP. PT NPO UNTIL SEEN BY DR DANG. NEEDS MET, WILL CONTINUE TO MONITOR.
--- NOTE | 2017-09-20 07:30 | NUR ---
RECEIVED PT IN BED EYES CLOSED RESP UNLABORED NAD NOTED
[2017-09-20 08:48] VITALS: BP 134/78
[2017-09-20 08:59] LABS: BASOPHILS 0.6 % (0-2); EOSINOPHILS 3.7 % (0-7); HEMOGLOBIN 15.1 g/dL (12-16); IMMATURE GRANULOCYTES 0.4 % (0-5); LYMPHOCYTES 25.8 % (15-50); MCH 30.4 pg (26.0-34.0); MCHC 33.6 g/dL (31.0-37.0); MCV 90.7 fL (80.0-100.0); MEAN PLATELET VOLUME 10.7 fL (7.4-10.4); MONOCYTES 10.3 % (2-11); NEUTROPHILS 59.2 % (40-80); PLATELET COUNT 206 10x3/uL (130-400); RBC 4.96 10x6/uL (4.00-5.40); RDW 12.9 % (11.5-14.5); WBC 8.3 10x3/uL (4.8-10.8)
[2017-09-20 09:04] LABS: CALC OSMOLALITY 276 mosm/kg (275-300); CALCIUM 8.9 mg/dL (8.5-10.1); CARBON DIOXIDE 29.5 mmol/L (21.0-32.0); CHLORIDE - SERUM 101 mmol/L (98-107); CREATININE - SERUM 0.7 mg/dL (0.6-1.3); GLUCOSE 93 mg/dL (74-106); POTASSIUM - SERUM 4.4 mmol/L (3.5-5.1); SODIUM 139 mmol/L (136-145); eGFR NON AFRICAN AMERICAN > 90 mL/min (90-120)
[2017-09-20 09:05] LABS: UREA NITROGEN 9 mg/dL (7-18)
[2017-09-20 16:50] VITALS: BP 143/85
--- NOTE | 2017-09-20 19:15 | NUR ---
PT IN BED RESTING QUIETLY. BREATHING EVEN AND UNLABORED. BED RAILS UP X2. DENIES ANY PAIN OR NEEDS AT THIS TIME. BED IN LOW POSITION, CALL LIGHT WITHIN REACH.
[2017-09-20 21:30] VITALS: BP 102/63
[2017-09-21 02:05] VITALS: BP 110/71
--- NOTE | 2017-09-21 07:25 | NUR ---
ASSESSMENT COMPLETED. TELEMERTY SHOWS ST 110. ON ROOM AIR. RIGHT FA SL. RIGHT GROIN CATH SITE SOFT WITH DRSG DRY AND INTACT. NPO FOR STRESS TEST. SR UP WITH CALL LIGHT IN REACH
--- NOTE | 2017-09-21 07:25 | NUR ---
RESTING QUIETLY RESP UNLABORED NAD NOTED
--- NOTE | 2017-09-21 08:25 | NUR ---
TO CARDIAC LAB FOR STRESS TEST
[2017-09-21 08:34] VITALS: BP 124/66
--- NOTE | 2017-09-21 09:38 | NUR ---
BACK FROM STRESS TEST. WILL GIVE MEDS AND DIET. DENIES ANY OTHER NEEDS
[2017-09-21] MEDS ORDERED: REPATHA SY140 MG/1 M SC (12:34)
[2017-09-21 12:38] VITALS: BP 106/64
[2017-09-21 16:52] VITALS: BP 113/76
--- NOTE | 2017-09-21 18:20 | NUR ---
PT DISCHARGED. FLU VAC GIVEN. IV DCD WITH TIP INTACT. TO PRIVATE CAR PER WHEELCHAIR
--- NOTE | 2017-09-27 09:15 | EEG ---
PATIENT:FABIAN CHEEMA DATE OF SERVICE: 09/19/17 MEDICAL RECORD: [id number] DATE OF : 68 LOCATION:D.212 D.M2 ADMISSION DATE: 09/19/17 REFERRING PHYSICIAN: INTERPRETING PHYSICIAN: ROCK VILLASEÑOR MD DATE OF SERVICE: 09/21/2017 PROCEDURE: Lexiscan-directed cardiac nuclear stress test. PROCEDURE IN DETAIL: The patient was brought into the nuclear lab where she was placed in the supine position on the gurney. The patient then had Lexiscan injected via standard protocol without any difficulties or complications and the protocol was completed successfully. The patient had 12 mCi of sestamibi injected at rest and 31 mCi sestamibi injected at stress. We then studied the patient's function and perfusion. CONCLUSION: The patient had a mildly decreased ejection fraction of 51%. The patient had an anterolateral fixed area of perfusion. The inferior border was normal. IMPRESSION: The patient with evidence of prior infarction with a mild ischemic cardiomyopathy. No evidence of reversible ischemia. RECOMMENDATIONS: Continue medical management. TRANSINT:[id number] Voice Confirmation ID: [id number] DOCUMENT ID: [id number] ROCK VILLASEÑOR MD at 0915 CC: [id number] DICTATION DATE: 09/21/17 162 IT INFRASTRUCTURE MANAGER: 09/21/172022 DIS IN 09/21/17 [facility] [address] [place] [address]
== END 2017-09-21 18:21 | disposition home or self-care (01) ==
LOC: D.ER 21:39 → D.M2 22:24 → OBSVTIME 22:24 → D.SDCHOLD 09-21 14:40 → D.M2 09-21 14:42
PROVIDERS: Family Medicine; Internal Medicine Cardiovascular Disease; ADMIT Emergency Medicine
DX: I25.10 Atherosclerotic heart disease of native coronary artery without angina pectoris (principal); Z95.5 Presence of coronary angioplasty implant and graft; F17.203 Nicotine dependence unspecified, with withdrawal; E78.5 Hyperlipidemia, unspecified; I10 Essential (primary) hypertension; I73.9 Peripheral vascular disease, unspecified; F41.8 Other specified anxiety disorders; D50.9 Iron deficiency anemia, unspecified; I25.5 Ischemic cardiomyopathy

== ENCOUNTER → 2017-10-26 11:25 | Outpatient (CLI) | payer MEDICAID ==
[2017-09-19 23:32] VITALS: BMI 24.0
[~2017-10-26 11:25] MED LIST changes: +ISOSORBIDE MONO60 M1 PO; +REPATHA SY140 MG/1 M SC; +ULTRAM50 MG PO
== END | disposition home or self-care (01) ==
LOC: D.RAD 10-25 13:00
DX: K59.00 Constipation, unspecified (principal)

== ENCOUNTER → 2017-12-17 13:53 | Outpatient (CLI) | payer MEDICARE ==
[2017-09-19 23:32] VITALS: BMI 24.0
== END | disposition home or self-care (01) ==
LOC: D.MAMMO 11:15
DX: Z12.31 Encounter for screening mammogram for malignant neoplasm of breast (principal)

== ENCOUNTER 2018-02-20 14:19 | Emergency (ER) | payer MEDICARE ==
[2017-09-19 23:32] VITALS: BMI 24.0
[2018-02-20 15:13] LABS: BASOPHILS 0.6 % (0-2); EOSINOPHILS 1.8 % (0-7); HEMATOCRIT 40.2 % (36.0-48.0); HEMOGLOBIN 13.4 g/dL (12-16); IMMATURE GRANULOCYTES 0.1 % (0-5); LYMPHOCYTES 29.9 % (15-50); MCH 29.8 pg (26.0-34.0); MCHC 33.3 g/dL (31.0-37.0); MCV 89.3 fL (80.0-100.0); MEAN PLATELET VOLUME 10.5 fL (7.4-10.4); NEUTROPHILS 61.6 % (40-80); PLATELET COUNT 186 10x3/uL (130-400); RDW 13.3 % (11.5-14.5); WBC 8.4 10x3/uL (4.8-10.8)
[2018-02-20 15:31] LABS: ALBUMIN 3.3 g/dL (3.4-5.0); ALKALINE PHOSPHATASE 52 U/L (46-116); ALT (SGPT) 19 U/L (10-68); CALC OSMOLALITY 278 mosm/kg (275-300); CALCIUM 8.1 mg/dL (8.5-10.1); CARBON DIOXIDE 26.7 mmol/L (21.0-32.0); CHLORIDE - SERUM 105 mmol/L (98-107); CREATININE - SERUM 0.5 mg/dL (0.6-1.3); GLUCOSE 97 mg/dL (74-106); POTASSIUM - SERUM 3.5 mmol/L (3.5-5.1); PROTEIN - SERUM 6.8 g/dL (6.4-8.2); SODIUM 141 mmol/L (136-145); UREA NITROGEN 7 mg/dL (7-18); eGFR NON AFRICAN AMERICAN > 90 mL/min (90-120)
[2018-02-20 15:41] LABS: CHOL - HDL RATIO 4.3 ratio (2.3-4.1); CHOLESTEROL, TOTAL 186 mg/dL (0-200); CKMB 0.8 U/L (0.0-3.6); CREATINE KINASE 94 UL (21-215); HDL CHOLESTEROL 43 mg/dL (32-96); LDL CHOLESTEROL 122 mg/dL (0-100); LDL-HDL RATIO 2.8 ratio (1.5-3.5); TRIGLYCERIDE 109 mg/dL (30-200)
[2018-02-20 15:45] LABS: TROPONIN-I < 0.017 ng/mL (0.000-0.060)
[2018-02-20 16:00] LABS: AMYLASE - SERUM 46 U/L (25-115); LIPASE 129 U/L (73-393)
== END 2018-02-20 20:31 | disposition home or self-care (01) ==
LOC: D.ER 14:19
PROVIDERS: Family Medicine; Nurse Practitioner Family
DX: I20.8 Other forms of angina pectoris (principal); R10.13 Epigastric pain

== ENCOUNTER → 2018-03-01 19:36 | Outpatient (CLI) | payer MEDICARE ==
[2017-09-19 23:32] VITALS: BMI 24.0
[~2018-03-01 19:36] MED LIST changes: +EFFEXOR75 MG PO
== END | disposition home or self-care (01) ==
LOC: D.SLEEP 19:36
DX: G47.36 Sleep related hypoventilation in conditions classified elsewhere (principal)

== ENCOUNTER 2018-03-20 20:14 | Emergency (ER) | payer MEDICARE ==
[2017-09-19 23:32] VITALS: BMI 24.0
[~2018-03-20 20:14] MED LIST changes: -EFFEXOR75 MG PO
[2018-03-20 21:04] LABS: APPEARANCE CLEAR (CLEAR); COLOR YELLOW (YELLOW)
[2018-03-20 21:05] LABS: BILIRUBIN NEGATIVE (NEGATIVE); GLUCOSE NEGATIVE (NEGATIVE); KETONE SMALL mg/dL (NEGATIVE); NITRITE NEGATIVE (NEGATIVE); PROTEIN NEGATIVE (NEGATIVE); SPECIFIC GRAVITY 1.015 (1.005-1.020); UROBILINOGEN NORMAL (NORMAL)
[2018-03-20 21:17] LABS: UDS - AMPHET NEGATIVE QUAL (NEGATIVE); UDS - BARB NEGATIVE QUAL (NEGATIVE); UDS - BENZO POSITIVE QUAL (NEGATIVE); UDS - COCAINE NEGATIVE QUAL (NEGATIVE); UDS - OPIATE NEGATIVE QUAL (NEGATIVE); UDS - PCP NEGATIVE QUAL (NEGATIVE); UDS - THC NEGATIVE QUAL (NEGATIVE)
== END 2018-03-20 21:44 | disposition home or self-care (01) ==
LOC: D.ER 20:14
PROVIDERS: Family Medicine
DX: R41.3 Other amnesia (principal)

== ENCOUNTER 2018-03-29 13:27 | Outpatient (CLI) | payer MEDICARE ==
[2018-03-29] VITALS (8 sets, daily range): BP systolic 112–147; BP diastolic 58–81; BMI 24.3
[~2018-03-29] VITALS: Ht 170.2 cm; Wt 77.1 kg
--- NOTE | ~2018-03-29 | HEMODYNAMI ---
PATIENT:FABIAN CHEEMA MEDICAL RECORD: [id number] : 68 LOCATION:[facility] ADMISSION DATE: 03/29/18 Generatedon:03/29/201815:57 Patient name: FABIAN CHEEMA Patient #: [id number] SSN: [id number] : 1970 Date of study: 03/29/2018 Page: Of Hemodynamic Procedure Report Patient Data Patient Demographics Procedure consent was obtained First Name: FABIAN Gender: Female Last Name: ANETTE : 1970 Middle Initial: D Age: 47 year(s) Patient #: [id number] Race: SSN: [id number] Additional ID: [id number] Contact details [address]: [address] [place] [address] [place] State: [place] City: [place] Zip code: [address] Past Medical History Allergies Allergen Reaction Date Comments Reported Penicillins 12/06/2014 Other allergy 06/09/2017 PCN, Ropinirole Other allergy 09/20/2017 PCN, HYDROCODONE, ROPINIROLE Admission Admission Data Admission Date: 03/29/2018 Admission Time: 13:27 Lab Results Lab Result Date: 03/29/2018 Lab Result Time: 0:00 Biochemistry Name Units Result Min Max BUN mg/dl 10 --(-*--)-- 7 18 Creatinine mg/dl 0.7 --(*---)-- 0.6 1.3 CBC Name Units Result Min Max Hemoglobin g/dl 14.9 --(-*--)-- 13.5 17.5 Procedure Procedure Types Cath Procedure Diagnostic Procedure C [facility] w/Coronaries PCI Procedure Coronary Stent Coronary Stent Initial Procedure Description Procedure Date Procedure Date: 03/29/2018 Procedure Start Time: 15:30 Procedure End Time: 15:53 Procedure Staff Name Function Alejandro Rosario MD Performing Physician Melina Torres RT Monitor Charley Grant RT Scrub Kameron Tinoco RN Nurse Chris Boykin RT Monitor Indication Angina Procedure Data Cath Procedure Fluoroscopy Diagnostic fluoroscopy Total fluoroscopy Time: 1.6 time: 1.6 min min Diagnostic fluoroscopy Total fluoroscopy dose: 310 dose: 310 mGy mGy Contrast Material Contrast Material Type Amount (ml) Isovue 300 56 Entry Location Entry Primary Successful Side Size Upsize Upsize Entry Closure Succes sful Closure Location (Fr) 1 (Fr) 2 (Fr) Remarks Device Remarks Femoral Right 5 Fr 6 Fr Exoseal artery Short Estimated blood loss: 10 ml Diagnostic catheters Device Type Used For End Catheter Placement MULTIPACK Pigtail 5 Fr Procedure catheter MULTIPACK JL 4.0 5Fr Procedure catheter MULTIPACK 3DRC 5Fr Procedure catheter Procedure Complications No complications Procedure Medications Medication Administration Route Dosage Oxygen NC 2 l/min Lidocaine 2% added to field 20 Heparin Flush Bag added to field 2 bags (1000units/500ml NS) 0.9% NaCl I.V. 100 ml/hr Versed I.V. 2 mg Fentanyl I.V. 100 mcg Versed I.V. 2 mg Fentanyl I.V. 100 mcg Heparin Bolus I.V. 4000 units Integrilin (Bolus I.V. 6.2 ml 2mg/ml) Integrilin (Bolus wasted 3.8 ml 2mg/ml) Plavix P.O. 600 mg Hemodynamics Rest HGB: 14.9 (g/dl) Heart Rate: 56 (bpm) Pressure Samples Time Site Value (mmHg) Purpose Heart Use Rate(bpm) 15:34 AO 109/59(79) Snapshot 53 Snapshots Pre Cath Intra NCS Post Cath Vital Signs Time Heart Resp SPO2 etCO2 NIBP (mmHg) Rhythm Pain Sedation Rate (ipm) (%) (mmHg) Status Level (bpm) 15:26:15 52 18 97 28.4 149/74(124) NSR 0 (11) 10(A) , No pain 15:31:32 48 18 95 35.9 135/72(110) NSR 0 (11) 10(A) , No pain 15:35:50 56 16 90 44.1 126/66(99) NSR 0 (11) 9(A) , No pain 15:40:02 58 19 94 39.6 134/73(104) NSR 0 (11) 9(A) , No pain 15:44:12 69 17 95 32.9 126/80(100) NSR 0 (11) 9(A) , No pain 15:48:26 59 13 90 35.1 117/64(99) NSR 0 (11) 9(A) , No pain Medications Time Medication Route Dose Verified Delivered Reason Notes Effectiveness by by 15:27:29 Oxygen NC 2 Alejandro Buffie used for l/min Marlene Tinoco RN procedure 15:27:35 Lidocaine 2% added 20ml Alejandro Alejandro for local to vial Marlene Rosario MD anesthetic field 15:27:41 Heparin Flush added 2 Alejandro Alejandro used for Bag to bags Marlene Rosario MD procedure (1000units/500ml field NS) 15:27:49 0.9% NaCl I.V. 100 Alejandro Buffie Per physician ml/hr Marlene Tinoco RN 15:31:39 Versed I.V. 2 mg Alejandro Herringie for sedation Marlene Tinoco RN 15:31:46 Fentanyl I.V. 100 Alejandro Buffie for sedation mcg Marlene Tinoco RN 15:34:50 Versed I.V. 2 mg Alejandro Melo for sedation Marlene Tinoco RN 15:34:54 Fentanyl I.V. 100 Alejandro Melo for sedation mcg Marlene Tinoco RN 15:39:14 Heparin Bolus I.V. 4000 Alejandro Melo for units Marlene Tinoco RN anticoagulation 15:39:26 Integrilin I.V. 6.2 Alejandro Herringie for (Bolus 2mg/ml) ml Marlene Tinoco RN antiplatelet therapy 15:39:35 Integrilin wasted 3.8 Alejandro Herringie for (Bolus 2mg/ml) ml Marlene Tinoco RN antiplatelet therapy 15:46:10 Plavix P.O. 600 Alejandro Melo for mg Marlene Tinoco RN antiplatelet therapy Procedure Log Time Note 15:09:59 Informed consent obtained and on chart 15:10:03 Diagnostic Cath Status : Elective 15:10:22 Indication : Angina 15:10:26 Kameron Tinoco RN sent for patient. Start room use. 15:10:27 Time tracking: Regular hours (M-F 7:00 - 5:00) 15:10:31 Plan of Care:Hemodynamics will remain stable., Cardiac rhythm will remain stable., Comfort level will be maintained., Respiratory function will remain adequate., Patient/ family verbilizes understanding of procedure., Procedure tolerated without complication., Recovers from procedure without complications.. 15:15:25 Lab Result : BUN 10 mg/dl 15:15:25 Lab Result : Hemoglobin 14.9 g/dl 15:15:25 Lab Result : Creatinine 0.7 mg/dl 15:17:54 Warm blankets applied, and sandra hugger turned on for patient comfort. 15:18:01 Patient received from ED to CCL 2 Alert and oriented. Tansferred to table in Supine position. 15:18:03 Correct patient and procedure confirmed by team. 15:18:04 ECG and BP/O2 sat monitors applied to patient. 15:25:04 Vital chart was started 15:25:09 Rhythm: sinus bradycardia 15:25:11 Full Disclosure recording started 15:25:15 H&P Date Dictated: 03/29/2018 ER History on chart.. 15:25:17 Pre-procedure instructions explained to patient. 15:25:17 Pre-op teaching completed and patient verbalized understanding. 15:25:19 Family in waiting room. 15:25:34 Patient NPO since Midnight. 15:25:36 Is the patient allergic to Iodine/contrast media? No. 15:25:37 Was the patient premedicated? No 15:25:48 Is patient on blood thinner?No 15:25:50 Patient diabetic? No. 15:25:53 Previous problem with sedation/anesthesia? No ? 15:25:54 Snore? Yes 15:25:55 Sleep apnea? No 15:25:56 Deviated septum? No 15:25:57 Opens mouth fully? Yes 15:25:58 Sticks out tongue? Yes 15:26:00 Airway obstruction? No ? 15:26:03 Dentures? No ? 15:26:06 Pre procedure: right dorsailis pedis pulse 2+ Normal; easily identifiable; not easily obliterated 15:26:09 Pre procedure: left dorsailis pedis pulse 2+ Normal; easily identifiable; not easily obliterated 15:26:10 Patient pain scale 0/10 ?. 15:26:18 IV patent on arrival in right wrist with 0.9% NaCl at [facility]. 15:26:20 Lab results completed and on chart. 15:26:27 Right groin area was prepped with chlora-prep and draped in sterile fashion 15::28 Alarms reviewed by R. N. 15::28 Sharps counted by scrub and verified by R.N. 15::29 Oxygen 2 l/min NC was administered by Kameron Tinoco RN; used for procedure; 15::35 Lidocaine 2% 20ml vial added to field was administered by Alejandro Rosario MD; for local anesthetic; 15::41 Heparin Flush Bag (1000units/500ml NS) 2 bags added to field was administered by Alejandro Rosario MD; used for procedure; 15::49 0.9% NaCl 100 ml/hr I.V. was administered by Kameron Tinoco RN; Per physician; 15:: Physician arrived 15:: --------ALL STOP TIME OUT------ :: Final Timeout: patient, procedure, and site verified with staff and physician. All members of the team are in agreement. 15:28:20 Right groin site verified by team. 15:28:23 Physical assessment completed. ASA score P 2 - A patient with mild systemic disease as per Alejadnro Rosario MD. 15:: Sedation plan: IV Moderate Sedation Medication:Versed, Fentanyl 15:28:34 Use device set Femoral Dx 15:28:35 ACIST Syringe (22193) opened to sterile field. 15:28:36 Bag Decanter (2002) opened to sterile field. 15:28:36 Medline Cath Pack ([id number]) opened to sterile field. 15:28:37 DIAGNOSTIC WIRE .035 260cm J wire (214291) opened to sterile field. 15:28:38 ACIST Hand Control (44788) opened to sterile field. 15:28:39 ACIST Manifold (11632) opened to sterile field. 15:28:39 DIAGNOSTIC Multipack 5Fr catheter set (NU0402) opened to sterile field. 15:28:40 Tegaderm 4 x 4 (1626W) opened to sterile field. 15:28:41 SHEATH Prelude 5Fr 0.035 (SOV-5X-02-035) opened to sterile field. 15:29:24 Procedure started. 15:30:26 Local anesthetic to right femoral artery with Lidocaine 2% by Alejandro Rosario MD.INITIAL ACCESS ONLY 15:31:39 Versed 2 mg I.V. was administered by Kameron Tinoco RN; for sedation; 15:31:46 Fentanyl 100 mcg I.V. was administered by Kameron Tinoco RN; for sedation; 15:32:52 A 5 Fr sheath was inserted into the Right Femoral artery 15:33:43 A MULTIPACK Pigtail 5 Fr catheter was advanced over the wire and used for Procedure. 15:33:46 LV angiography performed. 15:33:48 LV gram done using ZARCO 15:33:57 EF : 35 % 15:34:01 Injector settings: Ml/sec: 10, Volume: 20, 15:34:03 Catheter removed. 15:34:11 A MULTIPACK JL 4.0 5Fr catheter was advanced over the wire and used for Procedure. 15:34:14 Baseline sample Acquired. 15:34:50 Versed 2 mg I.V. was administered by Kameron Tinoco RN; for sedation; 15:34:53 LCA angiography performed. 15:34:54 Fentanyl 100 mcg I.V. was administered by Kameron Tinoco RN; for sedation; 15:35:13 Use device set TAU PCI 15:35:19 SHEATH Prelude 6Fr 0.035 ([id number]-5T-88-035) opened to sterile field. 15:35:25 CHOICE PT Extra Support 182cm wire ([id number]) opened to sterile field. 15:35:28 INFLATOR Merit BasixCompak (JD0219) opened to sterile field. 15:36:19 A MULTIPACK 3DRC 5Fr catheter was advanced over the wire and used for Procedure. 15:36:22 RCA angiography performed. 15:37:30 Catheter removed. 15:37:36 GUIDE 6FR AR 1.0 catheter (KJ6XH06) opened to sterile field. 15:39:00 Sheath upsized to a 6 Fr Short. 15:39:14 Heparin Bolus 4000 units I.V. was administered by Kameron Tinoco RN; for anticoagulation; 15:39:14 6 Fr AR 1 guide catheter was inserted over the wire 15:39:26 Integrilin (Bolus 2mg/ml) 6.2 ml I.V. was administered by Kameron Tinoco RN; for antiplatelet therapy; 15:39:30 Choice PT XS wire advanced. 15:39:32 Wire advanced across lesion. 15:39:35 Integrilin (Bolus 2mg/ml) 3.8 ml wasted was administered by Kameron Tinoco RN; for antiplatelet therapy; 15:40:55 Place stent Inflation Number: 1 A THAO RX 3.0 x 38 stent ([id number]) was prepped and advanced across the Mid RCA. The stent was deployed at 17 LOU for 0:10 (min:sec). 15:41:14 Stent catheter was removed intact over wire. 15:41:14 Wire removed. 15:41:15 Guide catheter removed. 15:41:21 EXOSEAL 6Fr (EX600) opened to sterile field. 15:41:36 Sheath removed intact; hemostasis achieved with Exoseal to the Right Femoral artery. 15:41:38 Procedure ended.(Physican Out) 15:46:10 Plavix 600 mg P.O. was administered by Kameron Tinoco RN; for antiplatelet therapy; 15:50:14 Fluoroscopy time 01.60 minutes. 15:50:18 Flurop Dose total: 310 15:50:18 Fluoroscopy dose: 310 mGy 15:50:58 Contrast amount:Isovue 300 56ml. 15:51:00 Sharps counted by scrub and verified by R.N. 15:51:01 Insertion/operative site no bleeding no hematoma. 15:51:14 Post-op/insertion site Right Femoral artery dressed using a 4 x 4 and Tegaderm. 15:51:16 Post Procedure Pulses reassessed and unchanged 15:51:18 Post-procedure physical assessment completed. ASA score P 2 - A patient with mild systemic disease as per Alejandro Rosario MD. 15:51:22 Post procedure rhythm: unchanged. 15:51:37 Estimated blood loss: 10 ml 15:51:38 Post procedure instruction explained to patient.Patient verbalizes understanding. 15:51:38 Patient needs reinforcement of post procedure teaching. 15:52:01 Procedure type changed to Cath procedure, Diagnostic procedure, LHC, LHC w/Coronaries, PCI procedure, Coronary Stent, Coronary Stent Initial 15:52:03 Procedure and supply charges have been captured, reviewed, submitted and are correct. 15:52:05 Procedure Complication : No complications 15:52:50 Vital chart was stopped 15:52:50 See physician's report for complete and final results. 15:52:52 Report given to PCU. 15:53:01 Patient transfered to PCU with Bed. 15:53:02 Procedure ended. 15:53:02 Full Disclosure recording stopped 15:53:11 End room use (Document Last) Intervention Summary Intervention Notes Time ActionType Lesion and Equipment Used Action# Pressure Duration Attributes 15:40:55 Place stent Mid RCA THAO RX 3.0 x 1 17 00:10 38 stent ([id number]) Device Usage Item Name Manufacture Quantity Catalog Number Hospital Part Current Minimal Lot# / Charge Number Stock Stock Serial# Code ACIST Syringe Acist 1 07186 [id number] [id number] 115602 20 (34985) Medical Systems Inc Bag Decanter Microtek 1 2001S 643300 42254 380559 5 (2001S) Medical Inc. Medline Cath Cardinal 1 [id number] 921393 24028 317404 5 Pack Health ([id number]) DIAGNOSTIC WIRE St Edwin 1 184810 024882 334233 958575 30 .035 260cm J wire (781308) ACIST Hand Acist 1 99296 408729 955418 503062 5 Control (68551) Medical Systems Inc ACIST Manifold Acist 1 81983 739928 566556 098045 5 (34938) Medical Systems [employer] DIAGNOSTIC Cardinal 1 [id number] 200880 38625 123088 30 Multipack 5Fr Health catheter set (LB0851) Tegaderm 4 x 4 3M 1 1626W 479396 731372 733301 5 (1626W) SHEATH Prelude Merit 1 GQL-9E-97-035 510552 896756 048307 5 5Fr 0.035 Medical (KRI-7B-65-035) MULTIPACK Cardinal 1 962090 5 Pigtail 5 Fr Health catheter MULTIPACK JL Cardinal 1 319255 5 4.0 5Fr Health catheter SHEATH Prelude Merit 1 YCZ-0I-12-35 804633 2960338 235974 5 6Fr 0.035 Medical (DJG-4U-97-035) CHOICE PT Extra [place] 1 [id number] 759127 563131 278392 5 Support 182cm Scientific wire ([id number]) INFLATOR Merit Merit 1 IY1827 681959 157395 368834 15 [employer] (EN2498) MULTIPACK 3DRC Cardinal 1 933479 5 5Fr catheter Health GUIDE 6FR AR Medtronic 1 PF1PA04 776091 48161 898588 1 1.0 catheter (IV7MN79) THAO RX 3.0 x Medtronic 1 [id number] 305721 5212161 774426 5 [id number] 38 stent ([id number]) EXOSEAL 6Fr Cardinal 1 EX600 072770 940625 563344 10 (EX600) Health Signature Audit [place] Stage Time Signature Unsigned Intra-Procedure 03/29/2018 Chris Boykin 3:57:49 PM RT(R) Signatures Monitor : Melina Torres RT Signature : Date : Time : Monitor : Chris Boykin RT Signature : Date : Time : [address] [place] [address]
--- NOTE | ~2018-03-29 | OP ---
PATIENT NAME: FABIAN CHEEMA MEDICAL RECORD: [id number] :68 LOCATION:D.CAT ADMISSION DATE: SURGEON: JUN LANE MD DATE OF OPERATION: 03/29/2018 PROCEDURES: 1. PTCA stent RCA. 2. Left heart catheterization. 3. Selective coronary angiography. 4. Left ventriculogram. INDICATION: Angina and coronary artery disease. PROCEDURE IN DETAIL: After informed consent was obtained and after a detailed description of the risks, benefits as well as alternative therapies, the patient elected to proceed with angiogram and angioplasty. The right femoral area was prepped and draped in normal sterile fashion. The right femoral artery was cannulated via modified Seldinger technique with placement of 6-Guy[place] sheath. All catheters exchanged through this sheath. FINDINGS: The left ventriculogram was performed in standard 30-degree ZARCO view, reveals global hypokinesis, ejection fraction 35%. SELECTIVE CORONARY ANGIOGRAPHY: 1. Left main has no significant angiographic disease. 2. Left anterior descending has previously placed stents. There is 90% in-stent restenosis. 3. Left circumflex has moderate irregularities, but no flow-limiting stenosis. 4. Right coronary artery has a long area of multiple 80% to 85% stenoses throughout the mid vessel. PTCA STENT OF THE RCA: The stent used covering these areas of multiple stenosis was a 3.0 x 38 mm [place]. Result was 0% residual stenosis. OVERALL IMPRESSION: Successful PTCA stent of the RCA going from multiple areas of 80% to 85% initial stenosis to 0% residual. PLAN: PTCA stent and laser atherectomy of the LAD in the near future. TRANSINT:[id number] Voice Confirmation ID: [id number] DOCUMENT ID: [id number] JUN LANE MD at 1218 CC: [id number] DICTATION DATE: 03/29/18 1547 DRAPERY EXAMINER: 03/29/18 1611 [facility] CLI 03/30/[address] [address]
--- NOTE | ~2018-03-29 | CN ---
PATIENT NAME:FABIAN ROSADO MEDICAL RECORD: [id number] : 68 LOCATION:D. D.2139 ADMIT DATE: ACCOUNT: [id number] CONSULTING PHYSICIAN: JUN LANE MD REFERRING PHYSICIAN: JUN LANE MD DATE OF CONSULTATION: 03/29/2018 DIAGNOSES: 1. Unstable angina. 2. Coronary artery disease. 3. Previous multivessel PTCA stent. 4. Hyperlipidemia. 5. Hypertension. HISTORY OF PRESENT ILLNESS: Mrs. Rosado presents with increasing chest pain compatible with angina just like that of her previous angina. Last cardiac intervention was in June. PHYSICAL EXAMINATION: GENERAL APPEARANCE: Well-nourished, well-developed, appears stated age. Level of distress, comfortable. PSYCHIATRIC: Mental status, alert, normal affect. Orientation, oriented to time, place and person. EYES: Lids and conjunctiva, noninjected. No discharge, no pallor. ENT: Lips, teeth, gums, normal dentition. Oropharynx, no cyanosis, no pallor. NECK: Carotid arteries, bilateral normal upstroke, no bruits, no thrills. JUGULAR VEINS: No jugular venous pressure or distention. CERVICAL LYMPH NODES: Nontender, nonenlarged. THYROID: Not enlarged. Nontender. No nodules. LUNGS: Respiratory effort, unlabored. CHEST: Normal curvature. No thoracic deformity. No chest wall tenderness. Percussion, resonant. Auscultation, clear. No wheezes, no rales, no rhonchi. CARDIOVASCULAR: Precordial exam, nondisplaced. No heaves or pericardial thrills. Rate and rhythm, regular. Heart sounds, normal S1, normal S2. No S3, no gallop, no rub. Systolic murmur, not heard. Diastolic murmur, not heard. EXTREMITIES: No cyanosis, no edema. Peripheral pulses, full and equal in all extremities, except as noted. No bruits appreciated. ABDOMEN: Soft, nondistended. Normal aorta. No bruit. Nontender. No masses. Liver, nontender, no hepatomegaly. Spleen, nontender, no splenomegaly. MUSCULOSKELETAL: No joint tenderness. No joint swelling. No erythema. NEUROLOGICAL: Normal gait, normal strength, normal tone. SKIN: Warm and dry. REVIEW OF SYSTEMS: The patient reports easy bruising but reports no swollen glands. The patient reports no fever, no night sweats, no significant weight gain, no significant weight loss. No significant exercise tolerance. The patient reports no dry eyes, no irritation, no vision change. Patient reports no difficulty hearing and no ear pain. Patient reports no frequent nose bleeds or nose and sinus problems. Patient reports on arm pain on exertion. No shortness of breath while lying down. No history of heart murmur. Patient reports no cough, no wheezing or coughing up blood. Patient reports no abdominal pain, no vomiting. Normal appetite. No diarrhea and not vomiting blood. No nausea and no constipation. Patient reports no incontinence. No difficulty urinating. No hematuria. No increased frequency. Patient reports no muscle aches. No weakness, no arthralgias, no back pain. No swelling of the CONSULT REPORT [id number] FABIAN ROSADO extremities. Patient reports no abnormal mole, no jaundice, no rashes. Reports no loss of consciousness. No weakness and no numbness. No seizures, dizziness, or headaches. The patient reports no depression, no sleep disturbance, feeling safe in a relationship and no alcohol abuse. Patient reports on fatigue. Reports no runny nose or sinus pressure. No itching, no hives, and no frequent sneezing. OVERALL IMPRESSION: Chest pain compatible with angina, most likely she has recurrent hemodynamically significant coronary artery disease. We will proceed with coronary angiography. Further care depends on the findings of the angiography. TRANSINT:[id number] Voice Confirmation ID: [id number] DOCUMENT ID: [id number] JUN LANE MD at 0828 CC: [id number] DICTATION DATE: 03/29/18 1253 AFFILIATE MARKETING COORDINATOR: 03/29/18 1446 [facility] [address] [place] [id number]
--- NOTE | ~2018-03-29 | HEMODYNAMI ---
PATIENT:FABIAN CHEEMA MEDICAL RECORD: [id number] : 68 [facility] [id number] ADMISSION DATE: 03/29/18 Generatedon:03/30/20188:29 Patient name: FABIAN CHEEMA Patient #: [id number] SSN: [id number] : 1970 Date of study: 03/30/2018 Page: Of Hemodynamic Procedure Report Patient Data Patient Demographics Procedure consent was obtained First Name: FABIAN Gender: Female Last Name: ANETTE : 1970 Middle Initial: D Age: 47 year(s) Patient #: [id number] Race: SSN: [id number] Additional ID: [id number] Contact details Address: [address] [place] [address] [place] State: [place] City: [place] Zip code: [address] Past Medical History Allergies Allergen Reaction Date Comments Reported Penicillins 12/06/2014 Other allergy 06/09/2017 PCN, Ropinirole Other allergy 09/20/2017 PCN, HYDROCODONE, ROPINIROLE Other allergy 03/30/2018 Ropininole, hydrocodone, PCNs Admission Admission Data Admission Date: 03/29/2018 Admission Time: 13:27 Admit Source: Other Room #: D.2139 Lab Results Lab Result Date: 03/29/2018 Lab Result Time: 0:00 Biochemistry Name Units Result Min Max BUN mg/dl 10 --(-*--)-- 7 18 Creatinine mg/dl 0.7 --(*---)-- 0.6 1.3 CBC Name Units Result Min Max Hemoglobin g/dl 14.9 --(-*--)-- 13.5 17.5 Procedure Procedure Types Cath Procedure Diagnostic Procedure PCI Procedure Coronary Atherectomy Atherectomy w/PTCA Coronary Initial Procedure Description Procedure Date Procedure Date: 03/30/2018 Procedure Start Time: 8:14 Procedure End Time: 8:26 Procedure Staff Name Function Alejandro Rosario MD Performing Physician Eddie Wan RT Monitor Charley Grant RT Scrub Anil Thomas RN Nurse Procedure Data Cath Procedure Fluoroscopy Diagnostic fluoroscopy Total fluoroscopy Time: 3 time: 3 min min Diagnostic fluoroscopy Total fluoroscopy dose: 204 dose: 204 mGy mGy Contrast Material Contrast Material Type Amount (ml) Isovue 370 34 Entry Location Entry Primary Successful Side Size Upsize Upsize Entry Closure Succes sful Closure Location (Fr) 1 (Fr) 2 (Fr) Remarks Device Remarks Femoral Left 6 Fr Exoseal artery Short Estimated blood loss: 10 ml Procedure Complications No complications Procedure Medications Medication Administration Route Dosage 0.9% NaCl I.V. 100 ml/hr Oxygen etCO2 Nasal cannula 2 l/min Heparin Flush Bag added to field 2 bags (1000units/500ml NS) Lidocaine 2% added to field 20 Versed I.V. 2 mg Fentanyl I.V. 100 mcg Fentanyl I.V. 100 mcg Versed I.V. 2 mg Heparin Bolus I.V. 4000 units Brilinta P.O. 90 mg Hemodynamics Rest HGB: 14.9 (g/dl) Heart Rate: 50 (bpm) Snapshots Pre Cath Intra NCS Post Cath Vital Signs Time Heart Resp SPO2 etCO2 NIBP (mmHg) Rhythm Pain Sedation Rate (ipm) (%) (mmHg) Status Level (bpm) 7:59:30 48 13 95 35.4 150/75(111) NSR 0 (11) 10(A) , No pain 8:04:17 51 13 95 37.6 128/75(100) NSR 0 (11) 10(A) , No pain 8:08:57 51 12 95 37.6 124/74(96) NSR 0 (11) 10(A) , No pain 8:13:32 50 14 96 36.9 105/71(85) NSR 0 (11) 10(A) , No pain 8:18:51 52 17 94 39.1 118/71(95) NSR 0 (11) 10(A) , No pain 8:23:30 62 16 95 42.9 126/72(97) NSR 0 (11) 10(A) , No pain Medications Time Medication Route Dose Verified Delivered Reason Notes Effectiveness by by 7:54:39 0.9% NaCl I.V. 100 Anil Kim physician ml/hr William Thomas RN RN 7:54:50 Oxygen etCO2 2 Anil Anil Per physician Nasal l/min Lorigan Lorulises cannula RN RN 7:55:03 Heparin Flush added 2 Anil Anil used for Bag to bags Lorigan Lorigan procedure (1000units/500ml field RN RN NS) 7:55:16 Lidocaine 2% added 20ml Anil Anil for local to vial Lorigan Lorigan anesthetic field RN RN 8:12:39 Versed I.V. 2 mg Anil Anil for sedation Lorulises Thomas RN RN 8:12:48 Fentanyl I.V. 100 Anil Anil for sedation mcg Lorulises Thomas RN RN 8:18:36 Fentanyl I.V. 100 Anil Anil for sedation mcg William Thomas RN RN 8:18:43 Versed I.V. 2 mg Anil Anil for sedation Lorigan William RN RN 8:18:54 Heparin Bolus I.V. 4000 Anil Anil for units Lorigan William anticoagulation RN RN 8:25:48 Brilinta P.O. 90 mg Anil Anil for Lorigan Lorigan antiplatelet RN RN therapy Procedure Log Time Note 7:30:57 Informed consent obtained and on chart 7:31:00 Admit Source: Other 7:31:36 Diagnostic Cath status Elective 7:31:38 Kameron Tinoco RN sent for patient. Start room use. 7:31:39 Time tracking: Regular hours (M-F 7:00 - 5:00) 7:31:43 Plan of Care:Hemodynamics will remain stable., Cardiac rhythm will remain stable., Comfort level will be maintained., Respiratory function will remain adequate., Patient/ family verbilizes understanding of procedure., Procedure tolerated without complication., Recovers from procedure without complications.. 7:34:51 H&P Date Dictated: 03/29/2018 Within 30 days and on chart.. 7:42:14 Patient received from Med II to CCL 1 Alert and oriented. Tansferred to table in Supine position. 7:42:15 Warm blankets applied, and sandra hugger turned on for patient comfort. 7:42:15 Correct patient and procedure confirmed by team. 7:42:16 ECG and BP/O2 sat monitors applied to patient. 7:42:17 Pre-procedure instructions explained to patient. 7:42:17 Pre-op teaching completed and patient verbalized understanding. 7:42:18 Family in patients room. 7:42:19 Patient NPO since Midnight. 7:54:39 0.9% NaCl 100 ml/hr I.V. was administered by Anil Thomas RN; Per physician; 7:54:50 Oxygen 2 l/min etCO2 Nasal cannula was administered by Anil Thomas RN; Per physician; 7:55:03 Heparin Flush Bag (1000units/500ml NS) 2 bags added to field was administered by Anil Thomas RN; used for procedure; 7:55:16 Lidocaine 2% 20ml vial added to field was administered by Anil Thomas RN; for local anesthetic; 7:56:03 Patient allergic to Other allergyRopininole, hydrocodone, PCNs 7:56:05 Is the patient allergic to Iodine/contrast media? No. 7:56:06 Is patient on blood thinner?Yes 7:56:09 ACC The patient was administered the following blood thiners within the last 24 hours: ACCBrilinta 7:56:11 Patient diabetic? No. 7:56:13 Previous problem with sedation/anesthesia? No ? 7:56:14 Snore? Yes 7:56:15 Sleep apnea? No 7:56:18 Deviated septum? No 7:56:19 Opens mouth fully? Yes 7:56:19 Sticks out tongue? Yes 7:56:21 Airway obstruction? No ? 7:56:22 Dentures? No ? 7:56:31 Pre procedure: left dorsailis pedis pulse 2+ Normal; easily identifiable; not easily obliterated 7:56:33 Patient pain scale 0/10 ?. 7:56:43 IV patent on arrival in right forearm with 0.9% NaCl at O. 7:56:52 Lab results completed and on chart. 7:56:55 Left groin area was prepped with chlora-prep and draped in sterile fashion 7:56:56 Alarms reviewed by R. N. 7:56:56 Sharps counted by scrub and verified by R.N. 7:57:02 ACIST Syringe (92917) opened to sterile field. 7:57:02 Bag Decanter (2002) opened to sterile field. 7:57:03 Medline Cath Pack ([id number]) opened to sterile field. 7:57:04 ACIST Hand Control (32834) opened to sterile field. 7:57:04 ACIST Manifold (75964) opened to sterile field. 7:57:06 Tegaderm 4 x 4 (1626W) opened to sterile field. 7:57:10 DIAGNOSTIC WIRE .035 260cm J wire (669229) opened to sterile field. 7:57:31 INFLATOR Merit BasixCompak (PN7233) opened to sterile field. 7:57:31 SHEATH Prelude 6Fr 0.035 (SPH-4L-52-035) opened to sterile field. 7:58:11 Vital chart was started 7:58:12 Baseline sample Acquired. 7:58:16 Rhythm: sinus rhythm 7:58:18 Full Disclosure recording started 7:58:56 CHOICE PT Extra Support 182cm wire ([id number]) opened to sterile field. 7:59:05 Zero performed for pressure channel P1 8:11:14 Physician arrived 8:11:14 --------ALL STOP TIME OUT------ 8:11:15 Final Timeout: patient, procedure, and site verified with staff and physician. All members of the team are in agreement. 8:11:16 Left groin site verified by team. 8:11:18 Physical assessment completed. ASA score P 2 - A patient with mild systemic disease as per Alejandro Rosario MD. 8:11:21 Sedation plan: IV Moderate Sedation Medication:Versed, Fentanyl 8:12:39 Versed 2 mg I.V. was administered by Anil Thomas RN; for sedation; 8:12:48 Fentanyl 100 mcg I.V. was administered by Anil Thomas RN; for sedation; 8:14:11 Procedure started. 8:14:14 Local anesthetic to left femerol artery with Lidocaine 2% by Alejandro Rosario MD.INITIAL ACCESS ONLY 8:14:25 A 6 Fr Short sheath was inserted into the Left Femoral artery 8:14:30 GUIDE 6FR XBLAD 3.5 catheter ([id number]) opened to sterile field. 8:14:47 6 Fr xblad 3.5 guide catheter was inserted over the wire 8:15:16 Guide Catheter removed. unable to cannulate vessel. 8:15:29 GUIDE 6FR XBLAD 4.0 catheter (90706488) opened to sterile field. 8:15:52 6 Fr xblad 4 guide catheter was inserted over the wire 8:16:03 LASER ELCA 0.9 Rx atherectomy catheter (840054) opened to sterile field. 8:16:52 choice pt es wire advanced. 8:17:23 Wire advanced across lesion. 8:18:20 LASER ELCA 0.9 RX atherectomy catheter advanced over the wire. 8:18:36 Fentanyl 100 mcg I.V. was administered by Anil Thomas RN; for sedation; 8:18:43 Versed 2 mg I.V. was administered by Anil Thomas RN; for sedation; 8:18:54 Heparin Bolus 4000 units I.V. was administered by Anil Thomas RN; for anticoagulation; 8:19:16 Laser pass to mLAD with Fluence of 45 and Rate of 25. 8:19:25 Laser pass to mLAD with Fluence of 80 and Rate of 40. 8:20:10 Laser pass to mLAD with Fluence of 80 and Rate of 40. 8:20:34 Laser pass to mLAD with Fluence of 80 and Rate of 40. 8:21:59 laser removed. 8:22:15 Inflate balloon Inflation number: 1 A EUPHORA 3.5 x 15 Balloon ([id number]) was prepped and advanced across the Mid LAD, then inflated to 19 LOU for 0:10 (min:sec). 8:22:33 Inflation number: 2 The EUPHORA 3.5 x 15 Balloon ([id number]) was reinflated across the Mid LAD, to 21 LOU for 0:10 (min:sec). 8:22:40 Laser total pulses delivered: 1450 8:22:46 Laser total treatment time: 0 minutes 40 seconds 8:23:01 Balloon removed over the wire. 8:23:01 Wire removed. 8:23:02 Guide catheter removed. 8:23:07 EXOSEAL 6Fr (EX600) opened to sterile field. 8:24:06 Sheath removed intact; hemostasis achieved with Exoseal to the Left Femoral artery. 8:24:08 Procedure ended.(Physican Out) 8:24:38 Fluoroscopy time 03.00 minutes. 8:24:42 Fluoroscopy dose: 204 mGy 8:24:42 Flurop Dose total: 204 8:24:58 Contrast amount:Isovue 370 34ml. 8:25:04 Sharps counted by scrub and verified by R.N. 8:25:05 Insertion/operative site no bleeding no hematoma. 8:25:07 Post-op/insertion site Left Femoral artery dressed using a 4 x 4 and Tegaderm. 8:25:13 Post left femerol artery:stable, soft, clean and dry 8:25:20 Post Procedure Pulses reassessed and unchanged 8:25:22 Post-procedure physical assessment completed. ASA score P 2 - A patient with mild systemic disease as per Alejandro Rosario MD. 8:25:24 Post procedure rhythm: unchanged. 8:25:26 Estimated blood loss: 10 ml 8:25:28 Post procedure instruction explained to patient.Patient verbalizes understanding. 8:25:28 Patient needs reinforcement of post procedure teaching. 8:25:35 Procedure type changed to Cath procedure, Diagnostic procedure, PCI procedure, Coronary Atherectomy, Atherectomy w/PTCA Coronary Initial 8:25:48 Brilinta 90 mg P.O. was administered by Anil Thomas RN; for antiplatelet therapy; 8:26:27 Procedure and supply charges have been captured, reviewed, submitted and are correct. 8:26:30 Procedure Complication : No complications 8:26:32 Vital chart was stopped 8:26:32 See physician's report for complete and final results. 8:26:34 Report given to PCU. 8:26:36 Patient transfered to PCU with Stretcher. 8:26:38 Procedure ended. 8:26:38 Full Disclosure recording stopped 8:26:41 End room use (Document Last) Intervention Summary Intervention Notes Time ActionType Lesion and Equipment Action# Pressure Duration Attributes Used 8:22:15 Inflate Mid LAD EUPHORA 1 19 00:10 balloon 3.5 x 15 Balloon ([id number]) 8:22:33 Reinflate Mid LAD EUPHORA 2 21 00:10 balloon 3.5 x 15 Balloon ([id number]) Device Usage Item Name Manufacture Quantity Catalog Number Hospital Part Current Minimal Lot# / Charge Number Stock Stock Serial# Code ACIST Syringe Acist 1 98420 [id number] 499074 [id number] 20 (19361) Medical [employer]y Inc Bag Decanter Microtek 1 475012 12130 690323 5 () Medical Inc. Medline Cath Cardinal 1 [id number] 888275 30665 190558 5 Ischemia Care ([id number]) ACIST Hand Acist 1 72696 982937 126614 329273 5 Control (31931) Medical Systems Inc ACIST Manifold Acist 1 58938 968270 856931 385288 5 (58490) Medical Systems Inc Tegaderm 4 x 4 3M 1 1626W 503246 109817 823545 5 (1626W) DIAGNOSTIC WIRE St [place] 1 310162 097705 233644 633508 30 .035 260cm J wire (981497) INFLATOR Merit Merit 1 YP0162 035184 701992 922191 15 BasixCompak Medical (IL0254) SHEATH Prelude Merit 1 SVH-3D-73-35 568739 0415628 380683 5 6Fr 0.035 Medical (NXC-5U-53-035) CHOICE PT Extra [place] 1 [id number] 890194 077376 030797 5 Support 182cm Scientific wire ([id number]) GUIDE 6FR XBLAD Cardinal 1 [id number] 139281 714461 477019 10 3.5 catheter Health (11454872) GUIDE 6FR XBLAD Cardinal 1 15872898 632710 667458 638704 3 4.0 catheter Health (74943045) LASER ELCA 0.9 Bo 1 110-004 655090 587535 991316 5 Rx atherectomy Healthcare catheter (145529) (961710) EUPHORA 3.5 x Medtronic 1 [id number] 103382 166253 068256 5 [id number] 15 Balloon (FUS2395G) EXOSEAL 6Fr Cardinal 1 EX600 361634 447627 689506 10 (EX600) Health Signature Audit [place] Stage Time Signature Unsigned Intra-Procedure 03/30/2018 Eddie Wan 8:29:36 AM RT(R) Signatures Monitor : Eddie Wan RT Signature : Date : Time : [id number] [place] [address]
--- NOTE | ~2018-03-29 | OP ---
PATIENT NAME: FABIAN CHEEMA MEDICAL RECORD: [id number] :68 LOCATION:D.CAT ADMISSION DATE: SURGEON: JUN LANE MD DATE OF OPERATION: 03/30/2018 PROCEDURES: 1. Laser atherectomy LAD. 2. PTCA LAD. 3. Selective coronary angiography. INDICATION: Angina and coronary artery disease. PROCEDURE IN DETAIL: After informed consent was obtained and after a detailed description of risks, benefits as well as alternative therapies, the patient elected to proceed with angiogram and angioplasty. The left femoral area was prepped and draped in normal sterile fashion. Left femoral artery was cannulated via modified Seldinger technique with placement of 6-Mongolian sheath. All catheters exchanged through this sheath. FINDINGS: The left anterior descending has 90% in-stent restenosis in the mid vessel. This was addressed with a 0.9 laser catheter, multiple passes were needed, 40/40 and 80/40. PTCA was undertaken with a 3.5 balloon. Result was 0% residual stenosis. OVERALL IMPRESSION: Successful PTCA laser atherectomy of the LAD going from 90% initial stenosis to 0% residual stenosis. TRANSINT:[id number] Voice Confirmation ID: [id number] DOCUMENT ID: [id number] JUN LANE MD at 1218 CC: [id number] DICTATION DATE: 03/30/18827 CARPENTER PROTOTYPE: 03/30/18 1215 [facility] CLI 03/30/18 [place] [id number]
--- NOTE | ~2018-03-29 | DS ---
PATIENT:FABIAN CHEEMA :68 MEDICAL RECORD: [id number] DISCHARGE SUMMARY ADMISSION DATE: 03/29/18 DISCHARGE DATE: 03/30/18 DISCHARGE DIAGNOSES: 1. Unstable angina. 2. Coronary artery disease. 3. Percutaneous transluminal coronary angioplasty stent right coronary artery, laser atherectomy, percutaneous transluminal coronary angioplasty left anterior descending this admission. HOSPITAL COURSE: Mrs. Cheema presents with anginal symptomatology, found to have 3-vessel coronary artery disease of the LAD, circumflex and RCA. She underwent PTCA stent of the RCA, laser atherectomy, PTCA for in-stent restenosis of the LAD. She was discharged home to continue her Brilinta. If she continues to have chest pain, transcatheter revascularization can be done of the distal circumflex. TRANSINT:[id number] Voice Confirmation ID: [id number] DOCUMENT ID: [id number] JUN LANE MD at 1218 CC: [id number] DICTATION DATE: 03/30/18825 [employer]: 03/30/18 1401 [facility] CLI 03/30/18 [facility] [address] [place] [address]
[2018-03-29 12:22] LABS: BASOPHILS 0.6 % (0-2); EOSINOPHILS 1.8 % (0-7); HEMOGLOBIN 14.9 g/dL (12-16); IMMATURE GRANULOCYTES 0.1 % (0-5); LYMPHOCYTES 24.8 % (15-50); MCH 29.7 pg (26.0-34.0); MCHC 33.9 g/dL (31.0-37.0); MCV 87.8 fL (80.0-100.0); MEAN PLATELET VOLUME 10.4 fL (7.4-10.4); MONOCYTES 8.5 % (2-11); NEUTROPHILS 64.2 % (40-80); PLATELET COUNT 195 10x3/uL (130-400); RBC 5.01 10x6/uL (4.00-5.40); RDW 13.8 % (11.5-14.5); WBC 8.7 10x3/uL (4.8-10.8)
[2018-03-29 12:40] LABS: ALBUMIN 3.6 g/dL (3.4-5.0); ALKALINE PHOSPHATASE 54 U/L (46-116); ALT (SGPT) 20 U/L (10-68); CALC OSMOLALITY 276 mosm/kg (275-300); CALCIUM 8.6 mg/dL (8.5-10.1); CARBON DIOXIDE 25.1 mmol/L (21.0-32.0); CHLORIDE - SERUM 105 mmol/L (98-107); CREATININE - SERUM 0.7 mg/dL (0.6-1.3); GLUCOSE 105 mg/dL (74-106); POTASSIUM - SERUM 3.6 mmol/L (3.5-5.1); PROTEIN - SERUM 7.4 g/dL (6.4-8.2); SODIUM 139 mmol/L (136-145); UREA NITROGEN 10 mg/dL (7-18); eGFR NON AFRICAN AMERICAN > 90 mL/min (90-120)
[2018-03-29 12:52] LABS: CHOL - HDL RATIO 4.2 ratio (2.3-4.1); CHOLESTEROL, TOTAL 191 mg/dL (0-200); CREATINE KINASE 40 UL (21-215); HDL CHOLESTEROL 45 mg/dL (32-96); LDL CHOLESTEROL 123 mg/dL (0-100); LDL-HDL RATIO 2.7 ratio (1.5-3.5); LIPASE 187 U/L (73-393); PRO BNP 170 pg/mL (0-125); TRIGLYCERIDE 119 mg/dL (30-200); TROPONIN-I < 0.017 ng/mL (0.000-0.060)
[2018-03-29] MEDS ORDERED: EFFEXOR75 MG PO (16:27)
[2018-03-30 04:00] VITALS: BP 160/76
[2018-03-30] MEDS ORDERED: BRILINTA90 MG PO (11:13)
[2018-03-30 11:35] VITALS: BP 129/68
[2018-03-30 13:31] VITALS: Ht 170.2 cm; Wt 77.1 kg
== END 2018-03-30 13:47 | disposition home or self-care (01) ==
LOC: D.CATH 13:27 → D.M2 13:27 → D.CATH 03-30 13:47
PROVIDERS: Family Medicine
DX: I25.119 Atherosclerotic heart disease of native coronary artery with unspecified angina pectoris (principal); T82.855A Stenosis of coronary artery stent, initial encounter; Z01.812 Encounter for preprocedural laboratory examination
CPT/HCPCS: 93458; 92924; C9600

== ENCOUNTER 2018-04-25 07:29 | Outpatient (CLI) | payer MEDICARE ==
[~2018-04-25] VITALS: Ht 170.2 cm; Wt 72.7 kg
--- NOTE | ~2018-04-25 | OP ---
PATIENT NAME: FABIAN CHEEMA MEDICAL RECORD: [id number] :68 LOCATION:D.CAT ADMISSION DATE: SURGEON: JUN LANE MD DATE OF OPERATION: 04/25/2018 PROCEDURES: 1. PTCA stent of left circumflex. 2. Left heart catheterization. 3. Selective coronary angiography. 4. Left ventriculogram. INDICATION: Angina and coronary artery disease. PROCEDURE PERFORMED: After informed consent was obtained and after detailed description of risks, benefits as well as alternative therapies, the patient elected to proceed with angiogram and angioplasty. The right femoral area was prepped and draped in normal sterile fashion. The right femoral artery was cannulated via modified Seldinger technique with placement of 6-[place] sheath. All catheters exchanged through this sheath. FINDINGS: The left ventriculogram was performed in standard 30-degree ZARCO view, reveals good cardiac wall motion throughout all segments. Overall ejection fraction estimated 60%. SELECTIVE CORONARY ANGIOGRAPHY: 1. Left main is with no significant angiographic disease. 2. Left anterior descending has previously placed stents. There is no significant restenosis. No significant disease elsewise of the LAD or its branches. 3. The left circumflex has 80% to 90% stenosis in the distal vessel. 4. The right coronary has previously placed stents, these are widely patent; however, intravascular ultrasound reveals 65% to 70% stenosis just proximal to the previously placed stents. PTCA STENT OF THE LEFT CIRCUMFLEX: The stent used was a 2.25 x 12 mm [place]. Result was 0% residual stenosis. OVERALL IMPRESSION: Successful percutaneous transluminal coronary angioplasty stent of the left circumflex going from 80% to 90% initial stenosis to 0% residual. TRANSINT:[id number] Voice Confirmation ID: [id number] DOCUMENT ID: [id number] JUN LANE MD at 1005 CC: [id number] DICTATION DATE: 04/25/18 09 [employer]IL TRACTOR OPERATOR: 04/25/18 1251 [facility] CLI 04/25/[address] [address]
--- NOTE | ~2018-04-25 | HEMODYNAMI ---
PATIENT:FABIAN CHEEMA MEDICAL RECORD: [id number] : 68 LOCATION:[facility] ADMISSION DATE: 04/25/18 Generatedon:04/25/20189:05 Patient name: FABIAN CHEEMA Patient #: [id number] SSN: [id number] : 1970 Date of study: 04/25/2018 Page: Of Hemodynamic Procedure Report Patient Data Patient Demographics Procedure consent was obtained First Name: FABIAN Gender: Female Last Name: ANETTE : 1970 Middle Initial: D Age: 47 year(s) Patient #: [id number] Race: SSN: [id number] Additional ID: [id number] Contact details Address: [address] [place] [address] State: [place] City: [facility] Zip code: [address] Past Medical History Allergies Allergen Reaction Date Comments Reported Penicillins 12/06/2014 Other allergy 06/09/2017 PCN, Ropinirole Other allergy 09/20/2017 PCN, HYDROCODONE, ROPINIROLE Other allergy 03/30/2018 Ropininole, hydrocodone, PCNs Admission Admission Data Admission Date: 04/25/2018 Admission Time: 7:29 Procedure Procedure Types Cath Procedure Diagnostic [facility] w[facility]Coron[facility] FFR/IVUS Intra-Coronary IVUS Initial Sedation Charges Moderate Sedation up to 15 minutes PCI Procedure Coronary Stent Coronary Stent Initial Procedure Description Procedure Date Procedure Date: 04/25/2018 Procedure Start Time: 8:45 Procedure End Time: 9:02 Procedure Staff Name Function Alejandro Rosario MD Performing Physician Jeannine Peralta RT Monitor Charley Grant RT Scrub Kameron Tinoco RN Nurse Procedure Data Cath Procedure Fluoroscopy Diagnostic fluoroscopy Total fluoroscopy Time: 2.6 time: 2.6 min min Diagnostic fluoroscopy Total fluoroscopy dose: 409 dose: 409 mGy mGy Contrast Material Contrast Material Type Amount (ml) Isovue 370 58 Entry Location Entry Primary Successful Side Size Upsize Upsize Entry Closure Succes sful Closure Location (Fr) 1 (Fr) 2 (Fr) Remarks Device Remarks Femoral Right 6 Fr Exoseal artery Short Estimated blood loss: 10 ml Diagnostic catheters Device Type Used For End Catheter Placement MULTIPACK Pigtail 5 Fr LV Angiography catheter MULTIPACK 3DRC 5Fr Right Coronary catheter Angiography Procedure Complications No complications Procedure Medications Medication Administration Route Dosage Oxygen NC 2 l/min Lidocaine 1% added to field 20 Heparin Flush Bag added to field 2 bags (1000units/500ml NS) 0.9% NaCl I.V. 100 ml/hr Versed I.V. 1 mg Fentanyl I.V. 50 mcg Versed I.V. 1 mg Fentanyl I.V. 50 mcg Versed I.V. 1 mg Fentanyl I.V. 50 mcg Heparin Bolus I.V. 4000 units Hemodynamics Rest Heart Rate: 56 (bpm) Snapshots Pre Cath Intra NCS Post Cath Vital Signs Time Heart Resp SPO2 etCO2 NIBP (mmHg) Rhythm Pain Sedation Rate (ipm) (%) (mmHg) Status Level (bpm) 8:20:45 58 14 98 145/82(132) NSR 0 (11) 10(A) , No pain 8:25:42 58 20 96 0 143/70(116) NSR 0 (11) 10(A) , No pain 8:30:27 56 22 97 23.3 127/73(98) NSR 0 (11) 10(A) , No pain 8:35:14 57 13 96 26.3 117/66(99) NSR 0 (11) 10(A) , No pain 8:39:59 56 15 96 24.8 117/63(94) NSR 0 (11) 10(A) , No pain 8:44:43 54 15 96 22.6 112/59(84) NSR 0 (11) 10(A) , No pain 8:49:24 56 14 97 22.6 104/65(92) NSR 0 (11) 9(A) , No pain 8:54:09 59 13 98 23.3 98/58(81) NSR 0 (11) 9(A) , No pain 8:59:28 68 14 98 26.3 130/72(101) NSR 0 (11) 10(A) , No pain Medications Time Medication Route Dose Verified Delivered Reason Notes Effectiveness by by 8:29:11 Oxygen NC 2 Alejandro Alejandro used for l/min Marlene Rosario MD procedure 8:30:52 Lidocaine 1% added 20ml Alejandro Alejandro for local to vial Marlene Rosario MD anesthetic field 8:30:58 Heparin Flush added 2 Alejandro Alejandro used for Bag to bags Marlene Rosario MD procedure (1000units/500ml field NS) 8:31:09 0.9% NaCl I.V. 100 Alejandro Buffie Per physician ml/hr Marlene Tinoco RN 8:40:15 Versed I.V. 1 mg Alejandro Buffie for sedation Marlene Tinoco RN 8:40:22 Fentanyl I.V. 50 Aeljandro Buffie for sedation mcg Marlene Tinoco RN 8:43:37 Versed I.V. 1 mg Alejandro Buffie for sedation Marlene Tinoco RN 8:43:41 Fentanyl I.V. 50 Alejandro Buffie for sedation mcg Marlene Tinoco RN 8:48:29 Versed I.V. 1 mg Alejandro Buffie for sedation Marlene Tinoco RN 8:48:32 Fentanyl I.V. 50 Alejandro Buffie for sedation mcg Marlene Tinoco RN 8:50:36 Heparin Bolus I.V. 4000 Alejandro Buffie for verifie d units Marlene Tinoco RN anticoagulation with dr rosario Procedure Log Time Note 8:06:38 Signed procedure consent form obtained from patient. 8:06:45 Time tracking: Regular hours (M-F 7:00 - 5:00) 8:06:49 Plan of Care:Hemodynamics will remain stable., Cardiac rhythm will remain stable., Comfort level will be maintained., Respiratory function will remain adequate., Patient/ family verbilizes understanding of procedure., Procedure tolerated without complication., Recovers from procedure without complications.. 8:06:56 Charley Grant RT(R) sent for patient. Start room use. 8:13:16 Patient received from Pre/Post Procedure Room to CCL 1 Alert and oriented. Tansferred to table in Supine position. 8:13:17 Warm blankets applied, and sandra hugger turned on for patient comfort. 8:13:18 Correct patient and procedure confirmed by team. 8:13:18 ECG and BP/O2 sat monitors applied to patient. 8:13:20 Full Disclosure recording started 8:19:34 Vital chart was started 8:19:45 Rhythm: sinus rhythm 8:20:08 H&P Date Dictated: 04/25/2018 New H&P dictated by physician.. 8:20:10 Pre-procedure instructions explained to patient. 8:20:14 Pre-op teaching completed and patient verbalized understanding. 8:20:17 Family unavailable. 8:20:19 Patient NPO since Midnight. 8:20:38 Is the patient allergic to Iodine/contrast media? No. 8:21:00 Is patient on blood thinner?Yes 8:21:02 ACC The patient was administered the following blood thiners within the last 24 hours: ACCBrilinta 8:21:04 Patient diabetic? No. 8:21:08 Previous problem with sedation/anesthesia? No ? 8:21:09 Snore? Yes 8:21:10 Sleep apnea? No 8:21:11 Deviated septum? No 8:21:11 Opens mouth fully? Yes 8:21:12 Sticks out tongue? Yes 8:21:14 Airway obstruction? No Pt wears O2 at night 8:21:17 Dentures? No ? 8:21:45 Pre procedure: right dorsailis pedis pulse 1+ Palpable, but thready & weak; easily obliterated 8:21:47 Patient pain scale 0/10 ?. 8:21:52 IV patent on arrival in left hand with 0.9% NaCl at [facility]. 8:21:55 Lab results completed and on chart. 8:22:00 Right groin area was prepped with chlora-prep and draped in sterile fashion 8:22:01 Alarms reviewed by R. N. 8:22:01 Sharps counted by scrub and verified by R.N. 8:22:04 Use device set Femoral Dx 8:22:05 ACIST Syringe (49198) opened to sterile field. 8:22:06 Bag Decanter (2002S) opened to sterile field. 8:22:06 Medline Cath Pack ([id number]) opened to sterile field. 8:22:07 DIAGNOSTIC WIRE .035 260cm J wire (575978) opened to sterile field. 8:22:08 ACIST Hand Control (95057) opened to sterile field. 8:22:08 ACIST Manifold (22046) opened to sterile field. 8:22:09 DIAGNOSTIC Multipack 5Fr catheter set ([id number]) opened to sterile field. 8:22:10 Tegaderm 4 x 4 (1626W) opened to sterile field. 8:22:11 PERCUTANEOUS ENTRY 19GA needle opened to sterile field. 8:22:12 SHEATH Prelude 5Fr 0.035 (ANC-3A-37-035) opened to sterile field. 8:25:44 Physician paged 8:29:11 Oxygen 2 l/min NC was administered by Alejandro Rosario MD; used for procedure; 8:30:42 Zero performed for pressure channel P1 8:30:52 Lidocaine 1% 20ml vial added to field was administered by Alejandro Rosario MD; for local anesthetic; 8:30:55 Baseline sample Acquired. 8:30:58 Heparin Flush Bag (1000units/500ml NS) 2 bags added to field was administered by Alejandro Rosario MD; used for procedure; 8:31:09 0.9% NaCl 100 ml/hr I.V. was administered by Kameron Tinoco RN; Per physician; 8:39:48 Final Timeout: patient, procedure, and site verified with staff and physician. All members of the team are in agreement. 8:39:50 Right groin site verified by team. 8:39:55 Physical assessment completed. ASA score P 2 - A patient with mild systemic disease as per Alejandro Rosario MD. 8:39:58 Sedation plan: IV Moderate Sedation Medication:Versed, Fentanyl 8:40:15 Versed 1 mg I.V. was administered by Kameron Tinoco RN; for sedation; 8:40:22 Fentanyl 50 mcg I.V. was administered by Kameron Tinoco RN; for sedation; 8:43:37 Versed 1 mg I.V. was administered by Kameron Tinoco RN; for sedation; 8:43:41 Fentanyl 50 mcg I.V. was administered by Kameron Tinoco RN; for sedation; 8:45:50 Procedure started. 8:45:53 Local anesthetic to right femoral artery with Lidocaine 2% by Alejandro Rosario MD.INITIAL ACCESS ONLY 8:46:48 A 6 Fr Short sheath was inserted into the Right Femoral artery 8:47:14 A MULTIPACK Pigtail 5 Fr catheter was advanced over the wire and used for LV Angiography. 8:47:18 LV gram done using ZARCO 8:47:21 Injector settings: Ml/sec: 10, Volume: 20, 8:47:29 EF : 50 % 8:47:30 Catheter removed. 8:47:39 A MULTIPACK 3DRC 5Fr catheter was advanced over the wire and used for Right Coronary Angiography. 8:48:29 Versed 1 mg I.V. was administered by Kameron Tinoco RN; for sedation; 8:48:32 Fentanyl 50 mcg I.V. was administered by Kameron Tinoco RN; for sedation; 8:48:56 GUIDE 6FR EBU 3.5 catheter ([id number]) opened to sterile field. 8:49:04 Erwinna Hatchechubbee Eagleye IVUS Catheter (51735D) opened to sterile field. 8:49:59 Use device set MARLENE PCI 8:50:03 INFLATOR Merit BasixCompak (MB4582) opened to sterile field. 8:50:06 CHOICE PT Extra Support 182cm wire ([id number]) opened to sterile field. 8:50:15 GUIDE 6FR 3DRC SH catheter ([id number]) opened to sterile field. 8:50:26 6 Fr 3DRC SH guide catheter was inserted over the wire 8:50:32 Choice PT ES wire advanced. 8:50:36 Heparin Bolus 4000 units I.V. was administered by Kameron Tinoco RN; for anticoagulation; verified with dr rosario 8:50:52 IVUS catheter advanced over wire. 8:52:16 IVUS pass to LAD lesion performed. 8:52:45 IVUS catheter removed over wire. 8:52:50 Wire removed. 8:52:50 Guide catheter removed. 8:53:06 6 Fr EBU 3.5 guide catheter was inserted over the wire 8:53:55 LCA angiography performed. 8:53:58 CHOICE PT ES wire advanced. 8:55:38 Place stent Inflation Number: 1 A THAO RX 2.25 x 12 stent ([id number]) was prepped and advanced across the Dist CX. The stent was deployed at 15 LOU for 0:07 (min:sec). 8:56:06 Inflation number: 2 The stent balloon was then re-inflated across the Dist CX to 17 LOU for 0:05 (min:sec). 8:56:26 Stent catheter was removed intact over wire. 8:56:27 Wire removed. 8:56:27 Guide catheter removed. 8:56:34 Sheath removed intact; hemostasis achieved with Exoseal to the Right Femoral artery. 8:56:36 Procedure ended.(Physican Out) 8:56:48 Fluoroscopy time 02.60 minutes. 8:56:53 Flurop Dose total: 409 8:56:53 Fluoroscopy dose: 409 mGy 8:57:01 Contrast amount:Isovue 370 58ml. 8:57:03 Sharps counted by scrub and verified by R.N. 8:58:16 Insertion/operative site no bleeding no hematoma. 8:58:19 Post-op/insertion site Right Femoral artery dressed using a 4 x 4 and Tegaderm. 8:58:23 Post right femoral artery:stable, clean and dry 8:59:28 Post Procedure Pulses reassessed and unchanged 8:59:31 Post-procedure physical assessment completed. ASA score P 2 - A patient with mild systemic disease as per Alejandro Rosario MD. 8:59:33 Post procedure rhythm: unchanged. 8:59:36 Estimated blood loss: 10 ml 8:59:37 Post procedure instruction explained to patient.Patient verbalizes understanding. 8:59:38 Patient needs reinforcement of post procedure teaching. 8:59:57 Procedure type changed to Cath procedure, Diagnostic procedure, LHC, LHC w/Coronaries, FFR/IVUS, Intra-Coronary IVUS Initial, Sedation Charges, Moderate Sedation up to 15 minutes, PCI procedure, Coronary Stent, Coronary Stent Initial 9:00:17 Procedure Complication : No complications 9:00:19 See physician's report for complete and final results. 9:01:51 EXOSEAL 6Fr (EX600) opened to sterile field. 9:02:07 Procedure and supply charges have been captured, reviewed, submitted and are correct. 9:02:08 Vital chart was stopped 9:02:10 Report given to Pre/Post Procedure Room. 9:02:13 Patient transfered to Pre/Post Procedure Room with Stretcher. 9:02:33 Procedure ended. 9:02:33 Full Disclosure recording stopped 9:05:13 End room use (Document Last) Intervention Summary Intervention Notes Time ActionType Lesion and Equipment Used Action# Pressure Duration Attributes 8:55:38 Place stent Dist CX THAO RX 2.25 x 1 15 00:07 12 stent ([id number]) 8:56:06 Reinflate Dist CX THAO RX 2.25 x 2 17 00:05 stent 12 stent balloon ([id number]) Device Usage Item Name Manufacture Quantity Catalog Number Hospital Part Current Minimal Lot# / Charge Number Stock Stock Serial# Code ACIST Syringe Acist 1 86146 778978 471399 236707 20 (47687) Medical Systems Inc Bag Decanter Microtek 1 079888 67461 488313 5 () Medical Inc. Medline Cath Cardinal 1 [id number] 926769 99315 107401 5 Pack Health ([id number]) DIAGNOSTIC WIRE St Edwin 1 305224 494239 063004 268189 30 .035 260cm J wire (659063) ACIST Hand Acist 1 55074 555779 591689 979924 5 Control (82251) Medical Systems Inc ACIST Manifold Acist 1 67830 197188 182347 396963 5 (46404) Medical Systems [employer] DIAGNOSTIC Cardinal 1 KY8873 196488 60801 347789 30 Multipack 5Fr Health catheter set ([id number]) Tegaderm 4 x 4 3M 1 1626W 529550 937652 767041 5 (1626W) PERCUTANEOUS Cook Medical 1 S17006 137032 585304 5 ENTRY 19GA needle SHEATH Prelude Merit 1 QOD-0Z-04-035 214893 849246 361781 5 5Fr 0.035 Medical (GCF-1B-24-035) MULTIPACK Cardinal 1 401961 5 Pigtail 5 Fr Health catheter MULTIPACK 3DRC Cardinal 1 995313 5 5Fr catheter Health GUIDE 6FR EBU Medtronic 1 [id number] 467126 37836 786062 3 3.5 catheter (QM7MHR48) Erwinna Erwinna 1 36251O 420631 463032 026382 8 Hatchechubbee Eagleye IVUS Catheter (65850G) INFLATOR Merit Merit 1 LX3871 882678 602334 377156 15 BitXriZebra Biologics Medical (VR5422) CHOICE PT Extra [place] 1 [id number] 532885 080028 085007 5 Support 182cm Scientific wire ([id number]) GUIDE 6FR 3DRC Medtronic 1 [id number] 384125 333957 709899 1 SH catheter (CY55BEUON) THAO RX 2.25 x Medtronic 1 [id number] 190918 2095273 501356 5 [id number] 12 stent ([id number]) EXOSEAL 6Fr Cardinal 1 EX600 718812 140398 513989 10 (EX600) Health Signature Audit [place] Stage Time Signature Unsigned Intra-Procedure 04/25/2018 Jeannine 9:05:26 AM Counts RT(R) Signatures Monitor : Jeannine Signature : Counts RT Date : Time : [place] [id number] [place] [address]
--- NOTE | ~2018-04-25 | HP ---
PATIENT: FABIAN CHEEMA MEDICAL RECORD: [id number] ACCOUNT: [id number] LOCATION:[facility] : 68 ADMISSION DATE: 04/25/18 HISTORY AND PHYSICAL EXAMINATION ADMITTING DIAGNOSES: 1. Angina. 2. Coronary artery disease. 3. Recent PTCA stent RCA, previous PTCA stent LAD. HISTORY OF PRESENT ILLNESS: Ms. Cheema presents with continued anginal symptomatology. She recently underwent PTCA stent of the RCA. She has concomitant disease of the circumflex. She has previous PTCA stent of the LAD, but no significant restenosis there. She is now brought back for repeat cardiac catheterization and possible transcatheter revascularization of the circumflex. PHYSICAL EXAMINATION: GENERAL APPEARANCE: Well-nourished, well-developed, appears stated age. Level of distress, comfortable. PSYCHIATRIC: Mental status, alert, normal affect. Orientation, oriented to time, place and person. EYES: Lids and conjunctiva, noninjected. No discharge, no pallor. ENT: Lips, teeth, gums, normal dentition. Oropharynx, no cyanosis, no pallor. NECK: Carotid arteries, bilateral normal upstroke, no bruits, no thrills. JUGULAR VEINS: No jugular venous pressure or distention. CERVICAL LYMPH NODES: Nontender, nonenlarged. THYROID: Not enlarged. Nontender. No nodules. LUNGS: Respiratory effort, unlabored. CHEST: Normal curvature. No thoracic deformity. No chest wall tenderness. Percussion, resonant. Auscultation, clear. No wheezes, no rales, no rhonchi. CARDIOVASCULAR: Precordial exam, nondisplaced. No heaves or pericardial thrills. Rate and rhythm, regular. Heart sounds, normal S1, normal S2. No S3, no gallop, no rub. Systolic murmur, not heard. Diastolic murmur, not heard. EXTREMITIES: No cyanosis, no edema. Peripheral pulses, full and equal in all extremities, except as noted. No bruits appreciated. ABDOMEN: Soft, nondistended. Normal aorta. No bruit. Nontender. No masses. Liver, nontender, no hepatomegaly. Spleen, nontender, no splenomegaly. MUSCULOSKELETAL: No joint tenderness. No joint swelling. No erythema. NEUROLOGICAL: Normal gait, normal strength, normal tone. SKIN: Warm and dry. REVIEW OF SYSTEMS: The patient reports easy bruising but reports no swollen glands. The patient reports no fever, no night sweats, no significant weight gain, no significant weight loss. No significant exercise tolerance. The patient reports no dry eyes, no irritation, no vision change. Patient reports no difficulty hearing and no ear pain. Patient reports no frequent nose bleeds or nose and sinus problems. Patient reports on arm pain on exertion. No shortness of breath while lying down. No history of heart murmur. Patient reports no cough, no wheezing or coughing up blood. Patient reports no abdominal pain, no vomiting. Normal appetite. No diarrhea and not vomiting blood. No nausea and no constipation. Patient reports no incontinence. No difficulty urinating. No hematuria. No increased frequency. Patient reports no muscle aches. No weakness, no arthralgias, no back pain. No swelling of the extremities. Patient reports no abnormal mole, no jaundice, no rashes. Reports no loss of consciousness. No weakness and no numbness. No seizures, dizziness, HISTORY AND PHYSICAL [id number] ANETTE,FABIAN D or headaches. The patient reports no depression, no sleep disturbance, feeling safe in a relationship and no alcohol abuse. Patient reports on fatigue. Reports no runny nose or sinus pressure. No itching, no hives, and no frequent sneezing. OVERALL IMPRESSION: Continued anginal symptomatology with significant disease of the circumflex. We will proceed with PTCA stent of the circumflex and repeat cardiac catheterization. TRANSINT:[id number] Voice Confirmation ID: [id number] DOCUMENT ID: [id number] JUN LANE MD at 1005 CC: [id number] DICTATION DATE: 04/25/18 0858 ACCOUNTING MACHINE OPERATOR: 04/25/18 1022 DEP CLI 04/25/18 [place] [id number] [place] [id number]
[~2018-04-25 07:29] MED LIST changes: +EFFEXOR75 MG PO
[2018-04-25 07:55] VITALS: BP 138/73; Ht 170.2 cm; Wt 72.7 kg
[2018-04-25 08:10] LABS: BASOPHILS 1.1 % (0-2); EOSINOPHILS 6.6 % (0-7); HEMATOCRIT 41.2 % (36.0-48.0); HEMOGLOBIN 13.9 g/dL (12-16); IMMATURE GRANULOCYTES 0.1 % (0-5); LYMPHOCYTES 32.3 % (15-50); MCH 29.1 pg (26.0-34.0); MCHC 33.7 g/dL (31.0-37.0); MCV 86.4 fL (80.0-100.0); MEAN PLATELET VOLUME 10.5 fL (7.4-10.4); MONOCYTES 9.5 % (2-11); NEUTROPHILS 50.4 % (40-80); PLATELET COUNT 187 10x3/uL (130-400); RBC 4.77 10x6/uL (4.00-5.40); RDW 14.4 % (11.5-14.5); WBC 7.4 10x3/uL (4.8-10.8)
[2018-04-25 08:22] LABS: INR 0.9 (0.85-1.17); PROTIME 11.8 SECONDS (11.6-15.0)
[2018-04-25 08:31] LABS: CALC OSMOLALITY 276 mosm/kg (275-300); CALCIUM 8.5 mg/dL (8.5-10.1); CARBON DIOXIDE 26.8 mmol/L (21.0-32.0); CHLORIDE - SERUM 104 mmol/L (98-107); CREATININE - SERUM 0.6 mg/dL (0.6-1.3); GLUCOSE 95 mg/dL (74-106); POTASSIUM - SERUM 5.1 mmol/L (3.5-5.1); SODIUM 139 mmol/L (136-145); UREA NITROGEN 9 mg/dL (7-18); eGFR NON AFRICAN AMERICAN > 90 mL/min (90-120)
== END 2018-04-25 13:06 | disposition home or self-care (01) ==
LOC: D.CATH 07:29
PROVIDERS: Internal Medicine Interventional Cardiology
DX: I25.119 Atherosclerotic heart disease of native coronary artery with unspecified angina pectoris (principal); Z01.812 Encounter for preprocedural laboratory examination
CPT/HCPCS: 92978; 93458; C9600

== ENCOUNTER → 2018-08-25 16:04 | Outpatient (CLI) | payer MEDICARE ==
[2018-04-25 07:55] VITALS: BMI 25.1
== END | disposition home or self-care (01) ==
LOC: D.MRI 09:00
DX: M54.5 Low back pain (principal)

== ENCOUNTER → 2019-01-06 08:00 | Outpatient (CLI) | payer MEDICARE ==
[2018-09-22 22:12] VITALS: BMI 26.3
[~2019-01-06 08:00] MED LIST changes: +ALDACTONE25 MG PO; +ASPIRIN325 MG PO
== END | disposition home or self-care (01) ==
LOC: D.MAMMO 08:00
PROVIDERS: ATTEND Family Medicine
DX: Z12.31 Encounter for screening mammogram for malignant neoplasm of breast (principal)

== ENCOUNTER → 2019-01-13 10:50 | Outpatient (CLI) | payer MEDICARE ==
[2018-09-22 22:12] VITALS: BMI 26.3
--- NOTE | 2019-01-20 12:16 | EC ---
PATIENT:FABIAN CHEEMA DATE OF SERVICE: 01/13/19 SEX: F MEDICAL RECORD: [id number] DATE OF : 68 [facility] AGE OF PATIENT: 48 ADMISSION DATE: 01/13/19 REFERRING PHYSICIAN: INTERPRETING PHYSICIAN: SAAD DANG MD ECHOCARDIOGRAM REPORT ECHO CHARGES 4 ECHO COMPLETE Date: 01/13/19 CLINICAL DIAGNOSIS: CARDIOMYOPATHY ECHOCARDIOGRAPHIC MEASUREMENTS (adult normal given) AC root (d.<3.7cm) 4.3 cm LV Septum d (<1.2 cm> 1.8 cm Valve Excursion 2.0 cm LV Septum (systole) 2.0 cm Left Atria (s.<4.0cm> 3.7 cm LVPW d(<1.2cm) 1.5 cm RV (d.<2.3cm) 2.8 cm LVPW (sytole) 2.2 cm LV diastole(<5.6CM) 6.6 cm MV E-F(>70mm/sec) cm LV systole 4.5 cm LVOT Diameter 1.6 cm MV exc.(>10mm) 1.2 cm Est.ejection fraction (50-75%) % DOPPLER: LVIT cm/sec A 122 cm/sec E 135 cm/sec LA cm/sec RVSP 51 mmHg LVOT 116 cm/sec AOP1/2T m/s Asc. Ao 154 cm/sec RVOT 101 cm/sec RA cm/sec PA 105 cm/sec AV Gradient Peak 9.43 mmHg AV Mean 4.80 mmHg AV Area 1.7 cm MV Gradient Peak 7.15 mmHg MV Mean 3.32 mmHg MV Area cm COMMENTS: Clinical Trainer: 2 JACQUELINE PEREIRA Winder Helper: 3 Dr. Beaulieu TAPE# PACS Pericardial Effusion N DATE OF SERVICE: Adequate 2D, color flow, spectral Doppler, and M-Mode. LVH is present. LV internal dimensions are normal. Wall motion is normal. EF is greater than or equal to 55%. Aortic valve is tricuspid. There is no evidence of stenosis on Doppler interrogation. There is mild AI by color flow imaging. Left atrium is 3.7 cm. Mitral valve shows no prolapse. Moderate MR. Right-sided chambers grossly normal. Trace TR. TRANSINT:[id number] Voice Confirmation ID: [id number] DOCUMENT ID: [id number] ECHOCARDIOGRAM REPORT [id number] FABIAN CHEEMA GREGORY A MD at 1216 CC: [id number] DICTATION DATE: 01/16/19 1353 OBSTETRICS SPECIALIST: 01/16/19 1418 DEP CLI 01/13/19 [place] [id number] [place] [id number]
== END | disposition home or self-care (01) ==
LOC: D.HCCARDIO 10:30
PROVIDERS: ATTEND Internal Medicine Interventional Cardiology
DX: I42.9 Cardiomyopathy, unspecified (principal)

== ENCOUNTER 2019-02-04 01:08 | Emergency (ER) | payer MEDICARE ==
[~2019-02-04] VITALS: Ht 170.2 cm; Wt 72.7 kg
[2019-02-04 01:09] VITALS: Ht 170.2 cm; Wt 72.7 kg
[2019-02-04 01:59] LABS: APPEARANCE CLOUDY (CLEAR); BACTERIA NONE SEEN /hpf (NONE SEEN); BILIRUBIN NEGATIVE (NEGATIVE); COLOR RED (YELLOW); EPITHELIAL CELLS NSEEN /hpf (0-5); GLUCOSE NEGATIVE (NEGATIVE); KETONE NEGATIVE (NEGATIVE); NITRITE NEGATIVE (NEGATIVE); PROTEIN 2+ mg/dL (NEGATIVE); RED CELLS - URINE >50 /hpf (0-5); UROBILINOGEN NORMAL (NORMAL); WHITE CELLS - URINE 0-5 /hpf (0-5)
[2019-02-04 02:10] LABS: BASOPHILS 0.4 % (0-2); EOSINOPHILS 3.8 % (0-7); HEMATOCRIT 35.8 % (36.0-48.0); HEMOGLOBIN 11.4 g/dL (12-16); IMMATURE GRANULOCYTES 0.2 % (0-5); LYMPHOCYTES 23.9 % (15-50); MCH 25.9 pg (26.0-34.0); MCHC 31.8 g/dL (31.0-37.0); MCV 81.2 fL (80.0-100.0); MEAN PLATELET VOLUME 10.2 fL (7.4-10.4); MONOCYTES 8.3 % (2-11); NEUTROPHILS 63.4 % (40-80); PLATELET COUNT 219 10x3/uL (130-400); RBC 4.41 10x6/uL (4.00-5.40); RDW 16.5 % (11.5-14.5); WBC 12.1 10x3/uL (4.8-10.8)
[2019-02-04 02:13] LABS: CALC OSMOLALITY 276 mosm/kg (275-300); CALCIUM 8.8 mg/dL (8.5-10.1); CARBON DIOXIDE 29.4 mmol/L (21.0-32.0); CHLORIDE - SERUM 102 mmol/L (98-107); CREATININE - SERUM 0.7 mg/dL (0.6-1.3); GLUCOSE 101 mg/dL (74-106); POTASSIUM - SERUM 3.7 mmol/L (3.5-5.1); SODIUM 140 mmol/L (136-145); UREA NITROGEN 7 mg/dL (7-18); eGFR NON AFRICAN AMERICAN > 90 mL/min (90-120)
[2019-02-04 02:55] VITALS: BP 137/71
== END 2019-02-04 02:55 | disposition home or self-care (01) ==
LOC: D.ER 01:08
PROVIDERS: Emergency Medicine
DX: T83.018A Breakdown (mechanical) of other urinary catheter, initial encounter (principal); R31.9 Hematuria, unspecified; R33.9 Retention of urine, unspecified

== ENCOUNTER 2019-03-27 12:17 | Inpatient (IN) | payer MEDICARE ==
[2019-03-27] VITALS (11 sets, daily range): BP systolic 161–182; BP diastolic 73–86; BMI 22.7
[2019-03-27] MEDS ORDERED: ZANAFLEX4 MG PO (12:40)
[2019-03-27 13:15] LABS: ALBUMIN 4.4 g/dL (3.4-5.0); ALKALINE PHOSPHATASE 83 U/L (46-116); ALT (SGPT) 30 U/L (10-68); BILIRUBIN - TOTAL 0.86 mg/dL (0.2-1.3); CALC OSMOLALITY 277 mosm/kg (275-300); CALCIUM 9.8 mg/dL (8.5-10.1); CARBON DIOXIDE 25.9 mmol/L (21.0-32.0); CHLORIDE - SERUM 102 mmol/L (98-107); CREATININE - SERUM 0.8 mg/dL (0.6-1.3); GLUCOSE 123 mg/dL (74-106); POTASSIUM - SERUM 3.9 mmol/L (3.5-5.1); PROTEIN - SERUM 8.2 g/dL (6.4-8.2); SODIUM 139 mmol/L (136-145); UREA NITROGEN 9 mg/dL (7-18); eGFR NON AFRICAN AMERICAN 81 mL/min (90-120)
[2019-03-27 13:19] LABS: TROPONIN-I < 0.017 ng/mL (0.000-0.060)
[2019-03-27 13:42] LABS: HEMATOCRIT 37.7 % (36.0-48.0); HEMOGLOBIN 12.1 g/dL (12-16); MCH 24.6 pg (26.0-34.0); MCHC 32.1 g/dL (31.0-37.0); MCV 76.6 fL (80.0-100.0); MEAN PLATELET VOLUME 9.9 fL (7.4-10.4); PLATELET COUNT 284 10x3/uL (130-400); RBC 4.92 10x6/uL (4.00-5.40); WBC 24.6 10x3/uL (4.8-10.8)
--- NOTE | 2019-03-27 14:09 | NUR ---
IN AND OUT CATH AT THIS TIME. URINE SENT TO LAB, STERILE FIELD MAINTAINED. PT TOLERATED WELL.
[2019-03-27 14:31] LABS: BASOPHILS 1 % (0-2); LYMPHOCYTES 6 % (15-50); MONOCYTES 4 % (2-11); NEUTROPHILS 85 % (40-80); PLATELET ESTIMATE NORMAL
[2019-03-27 15:08] LABS: APPEARANCE CLEAR (CLEAR); COLOR YELLOW (YELLOW)
[2019-03-27 15:09] LABS: BILIRUBIN NEGATIVE (NEGATIVE); GLUCOSE NEGATIVE (NEGATIVE); KETONE NEGATIVE (NEGATIVE); NITRITE NEGATIVE (NEGATIVE); PROTEIN NEGATIVE (NEGATIVE); RED CELLS - URINE OCC /hpf (0-5); UROBILINOGEN NORMAL (NORMAL); WHITE CELLS - URINE 0-5 /hpf (0-5)
--- NOTE | 2019-03-27 17:46 | NUR ---
MERREM INFUSION COMPELTE AT 1722
[2019-03-28 00:18] VITALS: BP 166/78
[2019-03-28 05:03] VITALS: BP 156/70
[2019-03-28 06:29] LABS: BASOPHILS 0.1 % (0-2); EOSINOPHILS 0.6 % (0-7); HEMATOCRIT 36.4 % (36.0-48.0); HEMOGLOBIN 11.4 g/dL (12-16); IMMATURE GRANULOCYTES 0.3 % (0-5); LYMPHOCYTES 8.5 % (15-50); MCH 24.2 pg (26.0-34.0); MCHC 31.3 g/dL (31.0-37.0); MCV 77.1 fL (80.0-100.0); MONOCYTES 5.8 % (2-11); NEUTROPHILS 84.7 % (40-80); PLATELET COUNT 291 10x3/uL (130-400); RBC 4.72 10x6/uL (4.00-5.40); RDW 17.3 % (11.5-14.5); WBC 22.7 10x3/uL (4.8-10.8)
[2019-03-28 06:35] LABS: BILIRUBIN - DIRECT 0.09 mg/dL (0.00-0.30); BILIRUBIN - INDIRECT 0.5 mg/dL (0.00-1.00); BILIRUBIN - TOTAL 0.59 mg/dL (0.2-1.3); CALCIUM 8.4 mg/dL (8.5-10.1); CARBON DIOXIDE 22.2 mmol/L (21.0-32.0)
[2019-03-28 06:37] LABS: ALBUMIN 3.1 g/dL (3.4-5.0); ANION GAP 16.6 mmol/L (8-16); CREATININE - SERUM 2.1 mg/dL (0.6-1.3); POTASSIUM - SERUM 4.8 mmol/L (3.5-5.1)
[2019-03-28 08:43] VITALS: BP 162/87
[2019-03-28 13:34] VITALS: BMI 22.7
[2019-03-28 14:40] VITALS: BP 174/85
--- NOTE | 2019-03-28 16:48 | NUR ---
ZURITA PLACED PER ORDER. PATIENT TOLERATED PROCEDURE. WCTM
[2019-03-28 16:55] VITALS: BP 170/89
[2019-03-28 20:49] VITALS: BP 165/74
[2019-03-29 01:20] VITALS: BP 137/66
--- NOTE | 2019-03-29 02:52 | NUR ---
I have reviewed this patient and I concur with the Shift Assessment completed by the Licensed Practical Nurse today this shift.
[2019-03-29 04:47] VITALS: BP 147/73
[2019-03-29 07:09] VITALS: BMI 22.7
--- NOTE | 2019-03-29 07:55 | NUR ---
PT RESTING IN BED. STATES, "DILAUDID IS DOING WELL FOR PAIN." NPO. NO S/S OF ACUTE DISTRESS. CL IN PLACE.
[2019-03-29 08:15] LABS: CALCIUM 7.9 mg/dL (8.5-10.1); CARBON DIOXIDE 24.3 mmol/L (21.0-32.0); CHLORIDE - SERUM 106 mmol/L (98-107); GLUCOSE 73 mg/dL (74-106); SODIUM 141 mmol/L (136-145)
[2019-03-29 08:27] LABS: CALC OSMOLALITY 278 mosm/kg (275-300); CREATININE - SERUM 0.4 mg/dL (0.6-1.3); UREA NITROGEN 11 mg/dL (7-18); eGFR NON AFRICAN AMERICAN > 90 mL/min (90-120)
[2019-03-29 08:36] VITALS: BP 164/69
[2019-03-29 11:02] LABS: HEMATOCRIT 31.3 % (36.0-48.0); HEMOGLOBIN 9.9 g/dL (12-16); LYMPHOCYTES 8.2 % (15-50); MCH 24.9 pg (26.0-34.0); MCHC 31.6 g/dL (31.0-37.0); MCV 78.8 fL (80.0-100.0); MEAN PLATELET VOLUME 9.8 fL (7.4-10.4); NEUTROPHILS 82.9 % (40-80); PLATELET COUNT 206 10x3/uL (130-400); RBC 3.97 10x6/uL (4.00-5.40); RDW 17.3 % (11.5-14.5); WBC 16.1 10x3/uL (4.8-10.8)
[2019-03-29 13:58] VITALS: BP 135/56
--- NOTE | 2019-03-29 19:02 | NUR ---
PT RESTING IN BED. REPORTS PAIN" 5/10 FEELS A LOT BETTER TODAY." FC DRAINING CLEAR YELLOW URINE. NO S/S OF ACUTE DISTRESS. CL IN PLACE.
[2019-03-29 20:58] VITALS: BP 181/61
--- NOTE | 2019-03-30 00:33 | NUR ---
I have reviewed this patient and I concur with the Shift Assessment completed by the Licensed Practical Nurse today this shift.
[2019-03-30 01:35] VITALS: BP 153/70
--- NOTE | 2019-03-30 02:22 | NUR ---
PT RESTING IN BED. EYES CLOSED. NO SIGNS OF DISTRESS. BREATHING EVEN AND UNLABORED. WILL CONTINUE PLAN OF CARE. CALL LIGHT IN REACH.
[2019-03-30 05:25] VITALS: BP 111/82
--- NOTE | 2019-03-30 07:42 | NUR ---
PT SITTING UP IN BED TALKING ON THE PHONE. NO S.S OF ACUTE DISTRESS. CL IN PLACE.
[2019-03-30 08:42] VITALS: BP 160/77
--- NOTE | 2019-03-30 10:06 | NUR ---
RECD PT FROM OR 99/41. 16. 87. 97.4 88% ON RA. O2@2LITERS NC. PT O2 SAT 97%. NO S/S OF ACUTE DISTRESS. DAUGHTER AT BEDSIDE. CL IN PLACE.
[2019-03-30 10:39] VITALS: BP 163/68
--- NOTE | 2019-03-30 11:46 | NUR ---
SPOKE WITH DR GOVEA ABOUT PT HIGH BP. CONSULT FOR PRIMARY, DR NGUYỄN.
--- NOTE | 2019-03-30 14:09 | OP ---
PATIENT NAME: FABIAN CHEEMA MEDICAL RECORD: [id number] :68 LOCATION:D[facility] [id number] ADMISSION DATE:03/27/19 SURGEON: JEAN PAUL GOVEA MD DATE OF OPERATION: 03/30/2019 CO-SURGEONS: 1. Jean Paul Govea MD 2. Cory Singh MD ANESTHESIA: General anesthesia by Wilfred Mahmood CRNA. 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 PROCEDURE: Examination under anesthesia, cystoscopy, bilateral retrograde pyelograms. FINDINGS: Bowel obstruction. Fluoroscopy revealed that the Gastrografin from a previous Gastrografin swallow and small bowel follow through study done 2 days ago was still concentrated in dilated colonic loops. There seems to be very little Gastrografin going into the cecum and rectum, so the site of obstruction may be actually on the left side of the pelvis. Cystoscopy shows a vesicovaginal fistula in the posterior wall near the dome of the bladder. No bladder tumors were seen. There are single ureteral orifices bilaterally. Bilateral retrograde pyelogram showed no ureteral injury. There was no hydronephrosis bilaterally. Vaginoscopy and examination under anesthesia shows a vesicovaginal fistula opening at the right apex of the vaginal cuff. With suprapubic pressure, a stream of urine can be seen entering into the vagina from the bladder through the fistula. The rest of the vaginal cuff was intact. ESTIMATED BLOOD LOSS: None. CLINICAL HISTORY: This is a 48-year-old female with a rather complicated medical history. She has coronary artery disease with 10 coronary artery stents placed. She has had a vertical gastric stapling procedure in the past, which was complicated by a staple leak. She came to the Emergency Room with acute abdominal pain and guarding with rebound tenderness. This has happened after she had sexual intercourse. In January of this year, she had a vaginal hysterectomy performed at [facility]. This was complicated by a vesicovaginal fistula for which [facility] has a plan to repair in the future. She has had 2 previous C-sections. Initially, we performed a Gastrografin swallow 2 days ago to check to see if the gastric stapling had leaked again. There was no evidence of leakage. The bowel was followed through and the contrast went down into the colon. Today, we are going to perform cystoscopy to check the location of the vesicovaginal fistula and to be sure that there was no perforation of the bladder into the peritoneal cavity. I also wanted to check the ureters to be sure that there was no ureteral injury. Finally, Dr. Singh will be checking the vaginal cuff to make sure that the episode of sexual intercourse did not disrupt the vaginal cuff closure in any way. SHE IS ALLERGIC TO HYDROCODONE AND PENICILLIN. She was given Levaquin IV injection molding machine operator to the OR. DESCRIPTION OF PROCEDURE: The patient was given initially an LMA and she was placed in the lithotomy position and prepped and draped. Leveling Machine Operator fluoroscopy revealed the dilated bowel loops with contrast still in them consistent with a bowel obstruction. She was then converted to general anesthesia with intubation OPERATIVE REPORT [id number] FABIAN CHEEMA to prevent emptying of the gastric contents with reflux. An NG tube was also placed by anesthesia and put to low suction drainage. Cystoscopy was performed. I could clearly see a vertical linear defect in the posterior vaginal wall near the dome of the bladder, which represents the area of the fistula. We could actually see fluid streaming out from the vagina while we are performing cystoscopy. One ureteral orifices seen on each side. The left ureteral orifice was intubated with a 5-Mauritanian open-ended ureteral catheter. Diluted contrast was injected for retrograde pyelogram. No hydronephrosis, no filling defects, no unusual deviation of the ureter was seen. A similar procedure was done on the right side and again the right ureter up to the kidney was intact. We then turned our attention to the vesicovaginal fistula. The scope was placed into the vagina. The cuff was examined. The cuff was intact with a large part except for an obvious hole in the vaginal cuff repair at the right apex or right corner of the vaginal closure. When we pushed on the bladder suprapubically, we can actually see a stream of fluid coming out of this hole. This examination was done and also by Dr. Singh with the speculum. For now, we will decompress her with an NG tube. She will probably need to be transferred back to [facility] to manage these surgical complications from her hysterectomy TRANSINT:[id number] Voice Confirmation ID: [id number] DOCUMENT ID: [id number] JEAN PAUL GOVEA MD at 1400 CC: [id number] DICTATION DATE: 03/30/19 0954 BAIT PACKER: 03/30/19 1339 ADM IN [facility] [address] [id number]
--- NOTE | 2019-03-30 14:15 | NUR ---
SPOKE WITH YADIRA ABOUT ELEVATED BP. CONSULT IN FOR DELMA TO SEE PT. YADIRA ROSE STATED, " SHE WOULD BE IN TO SEE HER SHORTLY." NO S/S OF ACUTE DISTRESS. CL IN PLACE.
--- NOTE | 2019-03-30 14:42 | NUR ---
NUTRITION F/U PT CURRENTLY NPO AFTER PROCEDURE. WILL PROVIDE DIET WHEN RESUMED, MONITOR PO INTAKE. ASSIST WITH NUTRITION SUPPORT IF NEEDED. RD FOLLOWING
[2019-03-30 15:28] LABS: CALCIUM 7.6 mg/dL (8.5-10.1); CARBON DIOXIDE 29.4 mmol/L (21.0-32.0); CHLORIDE - SERUM 103 mmol/L (98-107); CREATININE - SERUM 0.3 mg/dL (0.6-1.3); GLUCOSE 85 mg/dL (74-106); SODIUM 139 mmol/L (136-145); eGFR NON AFRICAN AMERICAN > 90 mL/min (90-120)
[2019-03-30 15:29] LABS: CALC OSMOLALITY 273 mosm/kg (275-300); POTASSIUM - SERUM 3.3 mmol/L (3.5-5.1); UREA NITROGEN 4 mg/dL (7-18)
[2019-03-30 15:40] LABS: BASOPHILS 0.2 % (0-2); HEMATOCRIT 26.9 % (36.0-48.0); HEMOGLOBIN 8.4 g/dL (12-16); IMMATURE GRANULOCYTES 0.2 % (0-5); LYMPHOCYTES 12.6 % (15-50); MCH 24.1 pg (26.0-34.0); MCHC 31.2 g/dL (31.0-37.0); MCV 77.1 fL (80.0-100.0); MEAN PLATELET VOLUME 9.9 fL (7.4-10.4); PLATELET COUNT 201 10x3/uL (130-400); RBC 3.49 10x6/uL (4.00-5.40); RDW 17.7 % (11.5-14.5)
[2019-03-30 15:43] LABS: WBC 11.7 10x3/uL (4.8-10.8)
--- NOTE | 2019-03-30 16:24 | NUR ---
1600 176/78.88 APRESOLINE GIVEN PER MD ORDER. DILAUDID GIVEN PER MD ORDER FOR PAIN 08/17. 1624. 1624. 166/74 97. PT RESTING WITH EYES CLOSED. CHEST RISING AND FALLING. NO S/S OF ACUTE DISTRESS. CL IN PLACE.
[2019-03-30 17:23] VITALS: BP 172/87
--- NOTE | 2019-03-30 17:46 | NUR ---
CALLED AUDREY IN REGARDS TO [phone]/61.106. APRESOLINE 10MG X 1 NOW AND CHANGE TO Q4 PRN. DC ALL SHELLEY APRESOLINE ORDERS. NO S/S OF ACUTE DISTRESS. CL IN PLACE.
--- NOTE | 2019-03-30 18:05 | NUR ---
APRESOLINE 10 MG IV GIVEN X 1 NO W PER MD ORDER 157/67.104. PT SITTING UP TALKING ON PHONE. NO S/S OF ACUTE DISTRESS. CL IN PLACE.
--- NOTE | 2019-03-30 18:55 | NUR ---
SPOKE WITH DR NGUYỄN ABOUT PT PAIN06/17. DC DILAUDID. NO FOR DILAUDID 3MG Q3PRN. NO S/S OF ACUTE DISTRESS. CL IN PLACE.
--- NOTE | 2019-03-30 19:39 | NUR ---
ALERT WHEN ENTERING THE ROOM. ORIENTED X 4. ANSWERS APPROPRIATELY. NGT TO THE LEFT HOLLIDAY WITH LOW INTERMITTENT SUCTION. VERY SMALL AMOUNT OF RED TINGED MUCOUS NOTED IN CANNISTER. DERMATOLOGY SALES REPRESENTATIVE READING 90 SR . RIGHT FOREARM INFUSING NS @ 2OO WITH PROTONIX DRIP AT 10 ML PER HOUR. PT WEARING SCD'S. ZURITA CATHETER IN PLACE. EMPTIED 800 OUT OF ZURITA. PRESENTS WITH SOME EXPIRATORY WHEEZES BILATERALLY. WEARS 3 L NC. CALL LIGHT IN REACH. DENIES FURTHER NEEDS.
[2019-03-30 21:43] VITALS: BP 168/71
--- NOTE | 2019-03-30 22:55 | NUR ---
ASSISTED PT TO BATHROOM. PT HAD LIQUID STOOL. STATES SHE FEELS MUCH BETTER. ASSISTED BACK TO BED.
[2019-03-31 07:16] LABS: BASOPHILS 0.1 % (0-2); EOSINOPHILS 1.6 % (0-7); HEMATOCRIT 28.7 % (36.0-48.0); HEMOGLOBIN 8.9 g/dL (12-16); IMMATURE GRANULOCYTES 0.3 % (0-5); LYMPHOCYTES 12.6 % (15-50); MCH 23.7 pg (26.0-34.0); MCV 76.5 fL (80.0-100.0); MEAN PLATELET VOLUME 9.5 fL (7.4-10.4); MONOCYTES 8.8 % (2-11); NEUTROPHILS 76.6 % (40-80); RBC 3.75 10x6/uL (4.00-5.40); RDW 17.6 % (11.5-14.5); WBC 11.5 10x3/uL (4.8-10.8)
[2019-03-31 07:20] LABS: PLATELET COUNT 249 10x3/uL (130-400)
[2019-03-31 07:28] LABS: CALC OSMOLALITY 273 mosm/kg (275-300); CALCIUM 8.3 mg/dL (8.5-10.1); CHLORIDE - SERUM 101 mmol/L (98-107); GLUCOSE 77 mg/dL (74-106); SODIUM 139 mmol/L (136-145); UREA NITROGEN 5 mg/dL (7-18)
[2019-03-31 07:54] LABS: CREATININE - SERUM 0.4 mg/dL (0.6-1.3); eGFR NON AFRICAN AMERICAN > 90 mL/min (90-120)
[2019-03-31 08:01] LABS: POTASSIUM - SERUM 2.8 mmol/L (3.5-5.1)
--- NOTE | 2019-03-31 08:32 | NUR ---
AAOX4. ON ROOM AIR, NG TO RIGHT NARE, NO DRAINAGE IN CANISTER, IV TO RIGHT FOREARM, PATENT INFUSING NS AT 200ML/HR WITH PROTONIX DRIP, TELEMETRY PRESENT, ZURITA CATHETER PRESENT, DENIES ANY CURRENT NEEDS OR DISCOMFORTS, BED LOWERED AND LOCKED, CALL LIGHT WITHIN REACH. CPOC
[2019-03-31 09:05] VITALS: BP 150/66
--- NOTE | 2019-03-31 09:26 | MORECARE ---
CASE MANAGEMENT DISCHARGE SUMMARY PATIENT: FABIAN CHEEMA UNIT: [id number] ADM DATE: 03/27/19 AGE: 48 : [birth year] SEX: F ROOM/BED: D.2238 AUTHOR: CHACHO SANDERS PHYSICIAN: REFERRING PHYSICIAN: JEAN PAUL GOVEA MD DATE OF SERVICE: 03/31/19 Discharge Plan Patient Name: FABIAN CHEEMA Facility: [facility]:[place] : 1970 Planned Disposition: Home Anticipated Discharge Date: 03/31/19 Discharge Date: Expected LOS: 4 Initial Reviewer: [email or web address] Initial Review Date: 03/27/2019 Generated: 03/31/19 10:25 am Comments DCP- Discharge Planning Updated by [email or web address]: Nicole Ibarra on 03/31/19 7:[address] I called Dr. Singh's office and spoke to Susanne, she states Dr. Singh would like her transferred to [facility] under Hailey De La Paz is Dr. Vanessa's nurse for contact. I called the transfer team and spoke to Jatinder and informed him of above. Clinical faxed to [facility]. CM will continue to follow and assist with discharge planning/needs. DCPIA - Discharge Planning Initial Assessment Updated by [email or web address]: Nicole Ibarra on 03/31/19 9:25 am * Is the patient Alert and Oriented? Yes * How many steps to enter\exit or inside your home? 5/0 * PCP Dr. Real * Pharmacy [facility] * Preadmission Environment Home Alone * ADLs Independent * Equipment Oxygen * List name and contact numbers for known caregivers / representatives who currently or will assist patient after discharge: None per patient * Verbal permission to speak to the caregivers and representatives has been obtained from the patient. N/A * Community resources currently utilized Other * Additional services required to return to the preadmission environment? No * Can the patient safely return to the preadmission environment? Yes * Has this patient been hospitalized within the prior 30 days at any hospital? No External Providers External Provider: [facility] Next Contact Date: Service Request Date: Service Type: Resolution: Reviewer: Comments: Patient Name: FABIAN CHEEMA Page [phone] at 0926 All edits/amendments must be made on the electronic document DICTATION DATE: 03/31/19924 SWING GRINDER: RONDA 03/31/19924 RPT#: [id number] DC DATE: STATUS: ADM IN [facility] [address] [place] [address] END OF REPORT
--- NOTE | 2019-03-31 09:33 | MORECARE ---
CASE MANAGEMENT DISCHARGE SUMMARY PATIENT: FABIAN CHEEMA UNIT: [id number] ADM DATE: 03/27/19 AGE: 48 : [birth year] SEX: F ROOM/BED: D.2238 AUTHOR: CHACHO SANDERS PHYSICIAN: REFERRING PHYSICIAN: JEAN PAUL GOVEA MD DATE OF SERVICE: 03/31/19 Discharge Plan Patient Name: FABIAN CHEEMA Facility: [facility]:[place] : 1970 Planned Disposition: Home Anticipated Discharge Date: 03/31/19 Discharge Date: Expected LOS: 4 Initial Reviewer: [email or web address] Initial Review Date: 03/27/2019 Generated: 03/31/19 10:32 am Comments DCP- Discharge Planning Updated by [email or web address]: Nicole Ibarra on 03/31/19 8:[address] Patient Name: FABIAN CHEEMA Admission Status: ER Accout number: [id number] Admission Date: 03-27-2019 : 1970 Admission Diagnosis:PERITONITIS, UNSPECIFIED Attending: RONALD GOVEA Current LOS: 4 Anticipated DC Date: 03-31-2019 Planned Disposition: Home Primary Insurance: [facility] MEDICARE SOLUTIONS Discharge Planning Comments: Refuses transfer to [facility]. I called Laith with [facility] and informed him patient has refused transfer. Dr. Govea is aware and states ok to discharge home. She has a surgery planned with Dr. High in [place] for April. CM met with patient to complete initial dc planning assessment. CM educated patient on the CM role and verbal consent given by patient to complete assessment. Patient lives at home alone. At discharge patient plans to return and feels this is a safe discharge. CM discussed availability of home health, rehab services, and medical equipment. Patient denied known discharge needs at this time. She states she has someone to call to pick her up today. CM will continue to follow and will assist as needed with dc plans/needs. Publications Inspector: Nicole Ibarra DCP- Discharge Planning Updated by [email or web address]: Nicole Ibarra on 03/31/19 7:[address] called Dr. Singh's office and spoke to Susanne, she states Dr. Singh would like her transferred to [facility] under Hailey De La Paz is Dr. Vanessa's nurse for contact. I called the transfer team and spoke to Jatinder and informed him of above. Clinical faxed to [facility]. CM will continue to follow and assist with discharge planning/needs. DCPIA - Discharge Planning Initial Assessment Updated by [email or web address]: Nicole Ibarra on 03/31/19 9:25 am * Is the patient Alert and Oriented? Yes * How many steps to enter\exit or inside your home? 5/0 * PCP Dr. Real * Pharmacy [facility] on [address] * Preadmission Environment Home Alone * ADLs Independent * Equipment Oxygen * List name and contact numbers for known caregivers / representatives who currently or will assist patient after discharge: None per patient * Verbal permission to speak to the caregivers and representatives has been obtained from the patient. N/A * Community resources currently utilized Other * Additional services required to return to the preadmission environment? No * Can the patient safely return to the preadmission environment? Yes * Has this patient been hospitalized within the prior 30 days at any hospital? No Coverage Notice Reviewer: [id number] - Nicole Ibarra Notice Issued Date-Time: 03/31/2019 9:28 Notice Type: IM Discharge Notice Notice Delivered To: Patient Relationship to Patient: Self Program Director/Music Director Name: Delivery Method: HAND - Hand Delivered Jazzy Days: Prior Verbal Notification: Recipient Understood Notice: Yes Recipient Signature: Yes Med Rec Note Co-signed by Attending: Coverage Notice Comment: IMM explained, signed, given, copy placed in MR Last DP export: 03/31/19 8:26 a Patient Name: FABIAN CHEEMA Page [phone] at 0933 All edits/amendments must be made on the electronic document DICTATION DATE: 03/31/19931 PAINTER AND DECORATOR: RONDA 03/31/19931 RPT#: [id number] DC DATE: STATUS: ADM IN [facility] [address] [place] [address] END OF REPORT
[2019-03-31 12:57] VITALS: BP 135/63
[2019-03-31 17:40] VITALS: BP 177/76
[2019-03-31 18:25] LABS: % SATURATION 6 % (15-55); IRON 17 ug/dl (35-150); TOTAL IRON BIND CAPACITY 259 ug/dl (260-445); UNSAT IRON BIND CAPACITY 242 ug/dl (150-375)
[2019-03-31 20:00] VITALS: BP 148/59
[2019-04-01] VITALS: BP 155/63
[2019-04-01 04:00] VITALS: BP 158/78
[2019-04-01 06:15] LABS: BASOPHILS 0.2 % (0-2); EOSINOPHILS 3.2 % (0-7); HEMATOCRIT 28.1 % (36.0-48.0); HEMOGLOBIN 8.8 g/dL (12-16); IMMATURE GRANULOCYTES 0.3 % (0-5); LYMPHOCYTES 12.7 % (15-50); MCHC 31.3 g/dL (31.0-37.0); MCV 76.6 fL (80.0-100.0); MEAN PLATELET VOLUME 9.7 fL (7.4-10.4); MONOCYTES 15.1 % (2-11); NEUTROPHILS 68.5 % (40-80); PLATELET COUNT 236 10x3/uL (130-400); RBC 3.67 10x6/uL (4.00-5.40); RDW 17.7 % (11.5-14.5); WBC 9.8 10x3/uL (4.8-10.8)
[2019-04-01 06:27] LABS: CALC OSMOLALITY 277 mosm/kg (275-300); CALCIUM 8.1 mg/dL (8.5-10.1); CARBON DIOXIDE 32.1 mmol/L (21.0-32.0); CHLORIDE - SERUM 104 mmol/L (98-107); CREATININE - SERUM 0.4 mg/dL (0.6-1.3); GLUCOSE 98 mg/dL (74-106); POTASSIUM - SERUM 3.3 mmol/L (3.5-5.1); SODIUM 141 mmol/L (136-145); eGFR NON AFRICAN AMERICAN > 90 mL/min (90-120)
[2019-04-01 06:28] LABS: UREA NITROGEN 3 mg/dL (7-18)
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
[2019-04-01 10:19] VITALS: BP 163/73
--- NOTE | 2019-04-01 12:59 | NUR ---
RECIEVED CALL FROM TELEMETRY WITH A RUN OF V-TACH, 108 HEART RATE. PT IS ASYMPTOMATIC, HR REGULAR, DENIES ANY SOB, CHEST PAIN, OR DISCOMFORT, BED LOWERED AND LOCKED, CALL LIGHT WITHIN REACH. CPOC
--- NOTE | 2019-04-01 13:37 | NUR ---
IV DISCONTINUED R/T HARD AND RED AT INSERTION SITE. CATHETER TIP INTACT. DENIES ANY CURRENT NEEDS OR DISCOMFORTS, BED LOWERED AND LOCKED CALL LIGHT WITHIN REACH. CPOC
[2019-04-01] MEDS ORDERED: LEVOFLOXACIN500 MG PO (14:31)
[2019-04-01] MEDS ORDERED: FLAGYL500 MG PO (14:32)
--- NOTE | 2019-04-01 15:35 | MORECARE ---
CASE MANAGEMENT DISCHARGE SUMMARY PATIENT: FABIAN CHEEMA UNIT: [id number] ADM DATE: 03/27/19 AGE: 48 : 68 SEX: F ROOM/BED: D.2238 AUTHOR: CHACHO SANDERS PHYSICIAN: REFERRING PHYSICIAN: JEAN PAUL GOVEA MD DATE OF SERVICE: 04/01/19 Discharge Plan Patient Name: FABIAN CHEEMA Facility: [facility]:[place] : 1970 Planned Disposition: Home Anticipated Discharge Date: 03/31/19 Discharge Date: Expected LOS: 4 Initial Reviewer: [email or web address] Initial Review Date: 03/27/2019 Generated: 04/01/19 4:35 pm Comments DCP- Discharge Planning Updated by [email or web address]: Nicole Ibarra on 03/31/19 8:[address] Patient Name: FABIAN CHEEMA Admission Status: ER Accout number: [id number] Admission Date: 03-27-2019 : 1970 Admission Diagnosis:PERITONITIS, UNSPECIFIED Attending: RONALD GOVEA Current LOS: 4 Anticipated DC Date: 03-31-2019 Planned Disposition: Home Primary Insurance: [facility] MEDICARE SOLUTIONS Discharge Planning Comments: Refuses transfer to [facility]. I called Laith with [facility] and informed him patient has refused transfer. Dr. Govea is aware and states ok to discharge home. She has a surgery planned with Dr. High in [place] for April. CM met with patient to complete initial dc planning assessment. CM educated patient on the CM role and verbal consent given by patient to complete assessment. Patient lives at home alone. At discharge patient plans to return and feels this is a safe discharge. CM discussed availability of home health, rehab services, and medical equipment. Patient denied known discharge needs at this time. She states she has someone to call to pick her up today. CM will continue to follow and will assist as needed with dc plans/needs. Composite Boat Builder: Nicole Ibarra DCP- Discharge Planning Updated by [id number]: Nicole Ibarra on 03/31/19 7:[address] called [address]. Singh's office and spoke to Susanne, she states Dr. Singh would like her transferred to [facility] under Hailey De La Paz is Dr. Vanessa's nurse for contact. I called the transfer team and spoke to Jatinder and informed him of above. Clinical faxed to [facility]. CM will continue to follow and assist with discharge planning/needs. DCPIA - Discharge Planning Initial Assessment Updated by [email or web address]: Nicole Ibarra on 03/31/19 9:25 am * Is the patient Alert and Oriented? Yes * How many steps to enter\exit or inside your home? 5/0 * PCP Dr. Real * Pharmacy [facility] on [address] * Preadmission Environment Home Alone * ADLs Independent * Equipment Oxygen * List name and contact numbers for known caregivers / representatives who currently or will assist patient after discharge: None per patient * Verbal permission to speak to the caregivers and representatives has been obtained from the patient. N/A * Community resources currently utilized Other * Additional services required to return to the preadmission environment? No * Can the patient safely return to the preadmission environment? Yes * Has this patient been hospitalized within the prior 30 days at any hospital? No Coverage Notice Reviewer: [id number] - Nicole Ibarra Notice Issued Date-Time: 03/31/2019 9:28 Notice Type: IM Discharge Notice Notice Delivered To: Patient Relationship to Patient: Self Web Administrator Name: Delivery Method: HAND - Hand Delivered Jazzy Days: Prior Verbal Notification: Recipient Understood Notice: Yes Recipient Signature: Yes Med Rec Note Co-signed by Attending: Coverage Notice Comment: IMM explained, signed, given, copy placed in MR Last DP export: 03/31/19 8:33 a Patient Name: FABIAN CHEEMA Page [phone] at 1535 All edits/amendments must be made on the electronic document DICTATION DATE: 04/01/19 153 AGRONOMY PROFESSOR: RONDA 04/01/19 1535 RPT#: [id number] DC DATE: STATUS: ADM IN [facility] [address] [place] [address] END OF REPORT
[2019-04-01 18:08] VITALS: BP 153/71
--- NOTE | 2019-04-01 18:39 | NUR ---
DISCHARGE INSTRUCTIONS GIVEN. VERBALIZED UNDERSTANDING. CHANGED ZURITA BAG OUT TO A LEG BAG. TRANSPORTED OFF UNIT VIA WHEELCHAIR.
[2019-04-03 03:05] LABS: FOLATE (FOLIC ACID) - SERUM 8.7 ng/mL (>3.0)
== END 2019-04-01 18:40 | disposition home or self-care (01) | DRG 388 ==
LOC: D.ER 12:17 → D.SDCHOLD 15:46 → D.MS 15:46
PROVIDERS: Family Medicine; Internal Medicine Nephrology; Surgery; ADMIT Urology; ATTEND Urology
PROC: 0TJB8ZZ Inspection of Bladder, Via Natural or Artificial Opening Endoscopic (ICD-10-PCS; principal; 2019-03-30 10:30)
DX: K91.30 Postprocedural intestinal obstruction, unspecified as to partial versus complete (principal); K65.9 Peritonitis, unspecified; T81.49XA Infection following a procedure, other surgical site, initial encounter; N82.0 Vesicovaginal fistula; N17.9 Acute kidney failure, unspecified; F17.213 Nicotine dependence, cigarettes, with withdrawal; I25.10 Atherosclerotic heart disease of native coronary artery without angina pectoris; I10 Essential (primary) hypertension

== ENCOUNTER 2019-04-02 17:29 | Emergency (ER) | payer MEDICARE ==
[~2019-04-02] VITALS: Ht 170.2 cm; Wt 63.6 kg
[~2019-04-02 17:29] MED LIST changes: +FLAGYL500 MG PO; +LEVOFLOXACIN500 MG PO
[2019-04-02 17:39] VITALS: Ht 170.2 cm; Wt 63.6 kg
[2019-04-02 17:53] LABS: BASOPHILS 0.2 % (0-2); EOSINOPHILS 0.4 % (0-7); HEMATOCRIT 27.9 % (36.0-48.0); HEMOGLOBIN 9.1 g/dL (12-16); IMMATURE GRANULOCYTES 0.6 % (0-5); MCH 24.1 pg (26.0-34.0); MCHC 32.6 g/dL (31.0-37.0); MEAN PLATELET VOLUME 10.3 fL (7.4-10.4); MONOCYTES 10.5 % (2-11); NEUTROPHILS 73.3 % (40-80); RBC 3.78 10x6/uL (4.00-5.40); RDW 17.4 % (11.5-14.5); WBC 11.4 10x3/uL (4.8-10.8)
[2019-04-02 18:00] LABS: MCV 73.8 fL (80.0-100.0); PLATELET COUNT 284 10x3/uL (130-400)
[2019-04-02 18:17] LABS: ALBUMIN 2.3 g/dL (3.4-5.0); ALKALINE PHOSPHATASE 74 U/L (46-116); ALT (SGPT) 27 U/L (10-68); BILIRUBIN - TOTAL 0.37 mg/dL (0.2-1.3); CALCIUM 8.2 mg/dL (8.5-10.1); CARBON DIOXIDE 27.3 mmol/L (21.0-32.0); CHLORIDE - SERUM 101 mmol/L (98-107); CREATININE - SERUM 0.4 mg/dL (0.6-1.3); GLUCOSE 107 mg/dL (74-106); PROTEIN - SERUM 6.2 g/dL (6.4-8.2); SODIUM 139 mmol/L (136-145); eGFR NON AFRICAN AMERICAN > 90 mL/min (90-120)
[2019-04-02 18:23] LABS: CALC OSMOLALITY 274 mosm/kg (275-300); UREA NITROGEN 4 mg/dL (7-18)
[2019-04-02 18:34] LABS: POTASSIUM - SERUM 2.6 mmol/L (3.5-5.1)
[2019-04-02 19:31] LABS: APPEARANCE CLEAR (CLEAR); BILIRUBIN NEGATIVE (NEGATIVE); COLOR STRAW (YELLOW); GLUCOSE NEGATIVE (NEGATIVE); KETONE MODERATE mg/dL (NEGATIVE); NITRITE NEGATIVE (NEGATIVE); PROTEIN TRACE mg/dL (NEGATIVE); SPECIFIC GRAVITY 1.005 (1.005-1.020); UROBILINOGEN NORMAL (NORMAL)
[2019-04-02 19:33] LABS: BACTERIA FEW /hpf (NONE SEEN); EPITHELIAL CELLS 0-5 /hpf (0-5); RED CELLS - URINE 0-5 /hpf (0-5); WHITE CELLS - URINE 0-5 /hpf (0-5)
[2019-04-02 19:34] LABS: MUCUS <1+ /lpf (NONE SEEN)
[2019-04-02 20:08] VITALS: BP 158/66
== END 2019-04-02 20:08 | disposition home or self-care (01) ==
LOC: D.ER 17:29
PROVIDERS: Family Medicine
DX: R10.9 Unspecified abdominal pain (principal); E87.6 Hypokalemia; R10.2 Pelvic and perineal pain; L76.82 Other postprocedural complications of skin and subcutaneous tissue

== ENCOUNTER 2019-07-17 12:00 | Outpatient (CLI) | payer MEDICARE ==
[~2019-07-17] VITALS: Ht 170.2 cm; Wt 66.1 kg
--- NOTE | ~2019-07-17 | HEMODYNAMI ---
PATIENT:FABIAN CHEEMA MEDICAL RECORD: [id number] : 68 [id number] ADMISSION DATE: 07/17/19 Generatedon:07/18/201910:32 Patient name: FABIAN CHEEMA Patient #: [id number] SSN: [id number] : 1970 Date of study: 07/18/2019 Page: Of Hemodynamic Procedure Report Patient Data Patient Demographics Procedure consent was obtained First Name: FABIAN Gender: Female Last Name: ANETTE : 1970 Middle Initial: D Age: 48 year(s) Patient #: [id number] Race: SSN: [id number] Additional ID: [id number] Contact details Address: [address] [place] [address] State: [place] City: [facility] Zip code: [address] Past Medical History Allergies Allergen Reaction Date Comments Reported Penicillins 12/06/2014 Other allergy 06/09/2017 PCN, Ropinirole Other allergy 09/20/2017 PCN, HYDROCODONE, ROPINIROLE Other allergy 03/30/2018 Ropininole, hydrocodone, PCNs Admission Admission Data Admission Date: 07/17/2019 Admission Time: 12:00 Arrival Date: 07/17/2019 Arrival Time: 12:00 Admit Source: Emergency Insurance Payor: Medicare department Room #: D.2122 Height (in.): 66.93 BSA: 1.77 (m2) Height (cm.): 170 BMI: 22.84 (kg/m2) Weight (lbs.): 145.51 Weight (kg.): 66 Lab Results Lab Result Date: 07/18/2019 Lab Result Time: 0:00 Biochemistry Name Units Result Min Max BUN mg/dl 5 -*(----)-- 7 18 Creatinine mg/dl 0.7 --(*---)-- 0.6 1.3 eGFR ml/min 90 --(*---)-- 90 120 NONAFRICAN CBC Name Units Result Min Max Hemoglobin g/dl 10.3 *-(----)-- 13.5 17.5 Procedure Procedure Types Cath Procedure Diagnostic Procedure [facility] w/Coronaries PCI Procedure Coronary Atherectomy Atherectomy w/PTCA Coronary Initial Procedure Description Procedure Date Procedure Date: 07/18/2019 Procedure Start Time: 10:00 Procedure End Time: 10:24 Procedure Staff Name Function Melina Torres RT Scrub Alejandro Rosario MD Performing Physician Eddie Wan RT Monitor Milena Erwin RN Nurse Procedure Data Cath Procedure Fluoroscopy Diagnostic fluoroscopy Total fluoroscopy Time: 4.7 time: 4.7 min min Diagnostic fluoroscopy Total fluoroscopy dose: 675 dose: 675 mGy mGy Contrast Material Contrast Material Type Amount (ml) Isovue 300 94 Entry Location Entry Primary Successful Side Size Upsize Upsize Entry Closure Succes sful Closure Location (Fr) 1 (Fr) 2 (Fr) Remarks Device Remarks Femoral Right 5 Fr 6 Fr Exoseal artery Short Estimated blood loss: 10 ml Diagnostic catheters Device Type Used For End Catheter Placement MULTIPACK Pigtail 5 Fr Procedure catheter MULTIPACK JL 4.0 5Fr Procedure catheter MULTIPACK 3DRC 5Fr Procedure catheter Procedure Complications No complications Procedure Medications Medication Administration Route Dosage 0.9% NaCl I.V. 100 ml/hr Oxygen etCO2 Nasal cannula 2 l/min Lidocaine 2% added to field 20 Heparin Flush Bag added to field 2 bags (1000units/500ml NS) Versed I.V. 2 mg Fentanyl I.V. 50 mcg Versed I.V. 2 mg Fentanyl I.V. 50 mcg Heparin Bolus I.V. 4000 units Plavix P.O. 75 mg Hemodynamics Rest HGB: 10.3 (g/dl) Heart Rate: 53 (bpm) Snapshots Pre Cath Intra NCS Post Cath Vital Signs Time Heart Resp SPO2 etCO2 NIBP (mmHg) Rhythm Pain Sedation Rate (ipm) (%) (mmHg) Status Level (bpm) 9:21:31 55 13 97 33.2 Measuring SB 0 (11) 10(A) , No pain 9:24:27 56 15 99 33.2 135/73(103) SB 0 (11) 10(A) , No pain 9:28:25 56 14 98 36.2 137/73(109) SB 0 (11) 10(A) , No pain 9:32:27 59 12 98 39.2 123/64(88) SB 0 (11) 10(A) , No pain 9:36:25 54 13 97 39.9 123/66(91) SB 0 (11) 10(A) , No pain 9:40:22 61 14 98 32.4 114/67(84) NSR 0 (11) 10(A) , No pain 9:44:17 61 15 98 34.6 118/65(83) NSR 0 (11) 10(A) , No pain 9:48:21 65 15 98 34.6 113/57(85) NSR 0 (11) 10(A) , No pain 9:52:21 62 14 97 35.4 111/59(77) NSR 0 (11) 10(A) , No pain 9:56:20 63 14 98 34.6 113/60(75) NSR 0 (11) 9(A) , No pain 10:00:47 57 19 99 36.2 129/67(94) SB 0 (11) 9(A) , No pain 10:04:48 61 14 98 39.9 126/62(96) NSR 0 (11) 9(A) , No pain 10:08:48 58 14 98 34.7 124/64(96) SB 0 (11) 9(A) , No pain 10:12:54 62 13 98 37.7 112/56(89) NSR 0 (11) 9(A) , No pain 10:17:10 78 14 100 34.6 140/91(122) NSR 0 (11) 10(A) , No pain 10:21:34 69 11 100 27.1 165/89(133) NSR 0 (11) 10(A) , No pain Medications Time Medication Route Dose Verified Delivered Reason Notes Effectiveness by by 9:25:05 0.9% NaCl I.V. 100 Alejandro Milena used for ml/hr Marlene Erwin pipe testing technician 9:25:11 Oxygen etCO2 2 Alejandro Milena used for Nasal l/min Marlene Erwin procedure cannula RN 9:25:17 Lidocaine 2% added 20ml Alejandro Allen for local to vial Marlene Rosario MD anesthetic field 9:25:21 Heparin Flush added 2 Alejandro Allen used for Bag to bags Marlene Rosario MD procedure (1000units/500ml field NS) 9:47:54 Versed I.V. 2 mg Alejandro Milena for sedation Marlene Erwin RN 9:48:00 Fentanyl I.V. 50 Alejandro Milena for sedation mcg Marlene Erwin RN 9:54:00 Versed I.V. 2 mg Aleajndro Pickensyla for sedation Marlene Erwin RN 9:54:05 Fentanyl I.V. 50 Alejandro Milena for sedation mcg Marlene Erwin RN 10:10:03 Heparin Bolus I.V. 4000 Alejandro Pearcea for verif ied units Marlene Erwin anticoagulation with Dr. LARA Rosario 10:10:15 Plavix P.O. 75 mg Alejandro Pearcea for Marlene Erwin antiplatelet RN therapy Procedure Log Time Note 9:04:38 Diagnostic Cath Status : Elective 9:05:58 ACC Patient presents with Stable Angina CCS Anginal Class 2--Slight limitation of ordinary activity. 9:06:02 Procedure Status Urgent Heart Cath (IP). 9:06:12 Milena Erwin RN sent for patient. Start room use. 9:06:13 Time tracking: Regular hours (M-F 7:00 - 5:00) 9:06:17 Plan of Care:Hemodynamics will remain stable., Cardiac rhythm will remain stable., Comfort level will be maintained., Respiratory function will remain adequate., Patient/ family verbilizes understanding of procedure., Procedure tolerated without complication., Recovers from procedure without complications.. 9:07:57 Admit Source: Emergency department 9:08:02 Arrival Date: 07/17/2019 12:00:00 PM 9:08:09 Insurance Payor : Medicare 9:11:04 Patient Height : 66.93 inches 9:11:07 Patient Weight : 145.51 lbs 9:12:33 Lab Result : eGFR NONAFRICAN 90 ml/min 9:12:33 Lab Result : Hemoglobin 10.3 g/dl 9:12:33 Lab Result : BUN 5 mg/dl 9:12:33 Lab Result : Creatinine 0.7 mg/dl 9:14:42 Patient received from Med II to [facility] 2 Alert and oriented. Tansferred to table in Supine position. 9:14:44 Signed procedure consent form obtained from patient. 9:14:45 Warm blankets applied, and sandra hugger turned on for patient comfort. 9:14:46 Correct patient and procedure confirmed by team. 9:14:47 ECG and BP/O2 sat monitors applied to patient. 9:18:08 H&P Date Dictated: 07/17/2019 Within 30 days and on chart.. 9:18:10 Pre-op teaching completed and patient verbalized understanding. 9:18:10 Pre-procedure instructions explained to patient. 9:18:11 Family unavailable. 9:18:13 Patient NPO since Midnight. 9:18:15 Is the patient allergic to Iodine/contrast media? No. 9:18:18 Is patient on blood thinner?Yes 9:18:20 ACC The patient was administered the following blood thiners within the last 24 hours: ACCPlavix 9:18:23 Patient diabetic? No. 9:18:34 Previous problem with sedation/anesthesia? No ? 9:18:35 Snore? Yes 9:18:36 Sleep apnea? No 9:18:37 Deviated septum? No 9:18:38 Opens mouth fully? Yes 9:18:39 Sticks out tongue? Yes 9:18:41 Airway obstruction? No ? 9:18:43 Dentures? No ? 9:18:48 Pre procedure: right dorsailis pedis pulse 1+ Palpable, but thready & weak; easily obliterated 9:18:51 Patient pain scale 0/10 ?. 9:19:02 IV patent on arrival in left forearm with 0.9% NaCl at [facility]. 9:19:04 Lab results completed and on chart. 9:19:41 Vital chart was started 9:22:24 Sharps counted by scrub and verified by R.N. 9:22:24 Alarms reviewed by R. N. 9:25:05 0.9% NaCl 100 ml/hr I.V. was administered by Milena Erwin RN; used for procedure; 9:25:11 Oxygen 2 l/min etCO2 Nasal cannula was administered by Milena Erwin RN; used for procedure; 9:25:17 Lidocaine 2% 20ml vial added to field was administered by Alejandro Rosario MD; for local anesthetic; 9:25:21 Heparin Flush Bag (1000units/500ml NS) 2 bags added to field was administered by Alejandro Rosario MD; used for procedure; 9:32:06 Baseline sample Acquired. 9:32:09 Rhythm: sinus rhythm 9:32:11 Full Disclosure recording started 9:46:36 Physician arrived 9:46:37 Final Timeout: patient, procedure, and site verified with staff and physician. All members of the team are in agreement. 9:46:37 --------ALL STOP TIME OUT------ 9:46:39 Right groin site verified by team. 9:46:42 Fire Safety Assessment: A--An alcohol-based skin anteseptic being used preoperatively., C--Open oxygen or nitrous oxide is being used., D--An ESU, laser, or fiber-optic light is being used. 9:46:45 Physical assessment completed. ASA score P 2 - A patient with mild systemic disease as per Alejandro Rosario MD. 9:47:07 1) 90+ Normal kidney functon but urine findings or structural abnormalities or genetic trait point to kidney disease. 9:47:10 Maximum allowable contrast dose (3.7 X eGFR X 0.75)250 ml. 9:47:12 Sedation plan: IV Moderate Sedation Medication:Versed, Fentanyl 9:47:54 Versed 2 mg I.V. was administered by Milena Erwin RN; for sedation; 9:48:00 Fentanyl 50 mcg I.V. was administered by Milena Erwin RN; for sedation; 9:54:00 Versed 2 mg I.V. was administered by Milena Erwin RN; for sedation; 9:54:05 Fentanyl 50 mcg I.V. was administered by Milena Erwin RN; for sedation; 9:59:46 ACIST Syringe (66120) opened to sterile field. 9:59:46 Use device set Femoral Dx 9:59:47 Medline Cath Pack ([id number]) opened to sterile field. 9:59:47 Bag Decanter () opened to sterile field. 9:59:48 ACIST Hand Control (95567) opened to sterile field. 9:59:49 ACIST Manifold (93688) opened to sterile field. 9:59:50 EMERALD Guide Wire (502-422) opened to sterile field. 9:59:53 DIAGNOSTIC Multipack 5Fr catheter set (LH4199) opened to sterile field. 9:59:55 SHEATH 5FR [place] (BYZ482) opened to sterile field. 10:00:07 Procedure started. 10:00:11 Local anesthetic to right femoral artery with Lidocaine 2% by Alejandro Rosario MD.INITIAL ACCESS ONLY 10:00:17 A 5 Fr sheath was inserted into the Right Femoral artery 10:00:58 A MULTIPACK Pigtail 5 Fr catheter was advanced over the wire and used for Procedure. 10:01:21 LV gram done using ZARCO 10:01:23 Injector settings: Ml/sec: 10, Volume: 20, 10:01:31 LV hemodynamics recorded. 10:01:34 EF : 60 % 10:01:35 Catheter exchanged over wire. 10:01:39 A MULTIPACK JL 4.0 5Fr catheter was advanced over the wire and used for Procedure. 10:01:46 LCA angiography performed. 10:02:58 Catheter exchanged over wire. 10:03:02 A MULTIPACK 3DRC 5Fr catheter was advanced over the wire and used for Procedure. 10:03:03 Tegaderm 4 x 4 (1626W) opened to sterile field. 10:03:21 INFLATOR Merit BasixCompak (YE5985) opened to sterile field. 10:03:21 [place]ner Verrata Plus pressure wire (50896H) opened to sterile field. 10:03:22 SHEATH 6FR [place] (SBP773) opened to sterile field. 10:03:23 GUIDE 6FR XB 3.5 catheter ([id number]) opened to sterile field. 10:03:34 RCA angiography performed. 10:05:21 Catheter removed. 10:05:26 GUIDE 6FR AR 1.0 catheter (OR8GU35) opened to sterile field. 10:05:32 Sheath upsized to a 6 Fr Short. 10:05:38 6 Fr AR 1 guide catheter was inserted over the wire 10:05:47 FFR/IFR wire advanced. 10:07:02 Wire advanced across lesion. 10:07:09 dRCA lesion measured at 1.01 with IFR 10:07:12 Wire removed. 10:07:14 Guide Catheter removed. 10:07:38 6 Fr XB 3.5 guide catheter was inserted over the wire 10:07:43 FFR/IFR wire advanced. 10:08:29 Wire advanced across lesion. 10:08:58 mLAD lesion measured at 0.80 with IFR 10:10:03 Heparin Bolus 4000 units I.V. was administered by Milena Erwin RN; for anticoagulation; verified with Dr. Rosario 10:10:15 Plavix 75 mg P.O. was administered by Milena Erwin RN; for antiplatelet therapy; 10:11:57 LASER ELCA 0.9 Rx atherectomy catheter (159612) opened to sterile field. 10:12:08 Laser pass to mLAD with Fluence of 80 and Rate of 40. 10:15:57 Laser catheter removed. 10:17:16 Inflate balloon Inflation number: 1 A WORKING OUT WORKSec Rx 3.5 x 38 balloon was prepped and advanced across the Prox LAD , then inflated to 19 LOU for 0:10 (min:sec) . 10:17:26 MULTIPLE INFLATIONS TO 19 ATMS. 10:17:39 Wire removed. 10:17:39 Balloon removed over the wire. 10:17:40 Guide catheter removed. 10:17:44 EXOSEAL 6Fr (EX600) opened to sterile field. 10:17:52 ACC Pre-intervention MARJORIE Flow is 3. 10:17:57 Pre PCI Site: [place] mLAD has 70% stenosis. 10:18:03 Post PCI Site: [place] mLAD has 0% stenosis. 10:18:06 ACC Post-intervention MARJORIE Flow is 3. 10:18:23 ACCDominant side:Co-Dominant 10:20:27 Sheath removed intact; hemostasis achieved with Exoseal to the Right Femoral artery. 10:20:28 Procedure ended.(Physican Out) 10:21:02 Fluoroscopy time 04.70 minutes. 10:21:07 Fluoroscopy dose: 675 mGy 10:21:07 Flurop Dose total: 675 10:21:49 Laser total pulses delivered: 2400 10:21:52 Laser total treatment time: 1 minutes 0 seconds 10:22:23 ACT drawn and resulted at 220 seconds. (normal therapeutic range 180-240 seconds). 10:22:42 Dose Area Product 11057 mGy/cm. 10:22:46 Contrast amount:Isovue 300 94ml. 10:22:54 Maximum allowable dose exceeded? No. 10:22:55 Sharps counted by scrub and verified by R.N. 10:23:08 Insertion/operative site no bleeding no hematoma. 10:23:10 Post-op/insertion site Right Femoral artery dressed using a 4 x 4 and Tegaderm. 10:23:16 Post right femoral artery:stable, soft, clean and dry 10:23:17 Post Procedure Pulses reassessed and unchanged 10:23:19 Post-procedure physical assessment completed. ASA score P 2 - A patient with mild systemic disease as per Alejandro Rosario MD. 10:23:23 Post procedure rhythm: unchanged. 10:23:25 Estimated blood loss: 10 ml 10:23:26 Post procedure instruction explained to patient.Patient verbalizes understanding. 10:23:26 Patient needs reinforcement of post procedure teaching. 10:23:47 Procedure type changed to Cath procedure, Diagnostic procedure, LHC, LHC w/Coronaries, PCI procedure, Coronary Atherectomy, Atherectomy w/PTCA Coronary Initial 10:24:07 Procedure and supply charges have been captured, reviewed, submitted and are correct. 10:24:09 Procedure Complication : No complications 10:24:10 Vital chart was stopped 10:24:11 See physician's report for complete and final results. 10:24:13 Report given to Pre/Post Procedure Room. 10:24:15 Patient transfered to Pre/Post Procedure Room with Stretcher. 10:24:17 Procedure ended. 10:24:17 Full Disclosure recording stopped 10:24:25 ACC-PCI Only Patient was given prescriptions, or instructed by Alejandro Rosario MD to start/continue the following medications upon discharge: Aspirin, Plavix 10:24:26 End room use (Document Last) Intervention Summary Intervention Notes Time ActionType Lesion and Equipment Action# Pressure Duration Attributes Used 10:17:16 Inflate Prox LAD Mozec Rx 1 19 00:10 balloon 3.5 x 38 balloon Device Usage Item Name Manufacture Quantity Catalog Hospital Part Current Minima l Lot# / Number Charge Number Stock Stock Serial# Code ACIST Acist 1 47226 747353 835631 925519 20 Syringe Medical (90874) Systems Inc Bag Microtek 1 618679 18535 093154 5 Decanter Medical Inc. () Medline Medline 1 [id number] 886597 34953 146279 5 Cath Pack ([id number]) ACIST Hand Acist 1 29641 570754 573747 727209 5 Control Medical (49437) Systems Inc ACIST Acist 1 98253 599143 749639 674569 5 Manifold Medical (87251) Systems Inc EMERALD Cardinal 1 502-455 050526 620387 382218 5 Guide Wire Health (502-455) DIAGNOSTIC Cardinal 1 JD0688 364581 91179 269900 30 Multipack [facility] 5Fr catheter set (YT3725) SHEATH 5FR Terumo 1 EZR346 825464 256385 202541 5 [place] (FHL571) MULTIPACK Cardinal 1 430178 5 Pigtail 5 Health Fr catheter MULTIPACK Cardinal 1 512569 5 JL 4.0 5Fr Health catheter MULTIPACK Cardinal 1 377668 5 3DRC 5Fr Health catheter Tegaderm 4 3M 1 1626W 749015 581391 910561 5 x 4 (1626W) La Conner La Conner 1 74812W 122515 877678996 844492 5 Verrata Plus pressure wire (96432Y) INFLATOR Merit 1 AE3227 003970 806429 616059 15 Health Recovery Solutions BasixCompak (GU4379) SHEATH 6FR Terumo 1 MIR293 508709 189446 041622 40 [place] (DQE367) GUIDE 6FR Medtronic 1 FU0EE07 673243 23584 922505 1 AR 1.0 catheter (PI4MZ65) GUIDE 6FR Cardinal 1 18658435 858038 754464 325063 2 XB 3.5 Health catheter (41909940) LASER ELCA Bo 1 110-004 334488 048947 156691 5 0.9 Rx BellaDati atherectomy (111426) catheter (715171) Mozec Rx Cardinal 1 [id number] 107248 60149 099009 5 3.5 x 38 Health balloon EXOSEAL 6Fr Cardinal 1 EX600 583870 487942 932202 10 (EX600) Health Signature Audit [place] Stage Time Signature Unsigned Intra-Procedure 07/18/2019 Eddie Wan RT(R) 10:26:02 AM RT(R) 07/18/2019 10:30:42 AM Intra-Procedure 07/18/2019 Eddie Wan 10:31:58 AM RT(R) Signatures Performing Physician : Signature : Alejandro Rosario MD Date : Time : Monitor : Eddie Wan RT Signature : Date : Time : Nurse : Milena Rip RN Signature : Date : Time : [address] [place] [address]
[2019-07-17 12:58] LABS: BASOPHILS 0.9 % (0-2); EOSINOPHILS 3.8 % (0-7); HEMOGLOBIN 10.3 g/dL (12-16); IMMATURE GRANULOCYTES 0.2 % (0-5); LYMPHOCYTES 34.8 % (15-50); MCH 22.5 pg (26.0-34.0); MCHC 31.2 g/dL (31.0-37.0); MCV 72.2 fL (80.0-100.0); MEAN PLATELET VOLUME 9.2 fL (7.4-10.4); NEUTROPHILS 52.3 % (40-80); PLATELET COUNT 295 10x3/uL (130-400); RBC 4.57 10x6/uL (4.00-5.40); RDW 18.6 % (11.5-14.5); WBC 9.5 10x3/uL (4.8-10.8)
[2019-07-17 13:34] LABS: ALBUMIN 3.6 g/dL (3.4-5.0); ALKALINE PHOSPHATASE 77 U/L (46-116); ALT (SGPT) 19 U/L (10-68); BILIRUBIN - TOTAL 0.31 mg/dL (0.2-1.3); CALC OSMOLALITY 272 mosm/kg (275-300); CALCIUM 8.4 mg/dL (8.5-10.1); CARBON DIOXIDE 31.9 mmol/L (21.0-32.0); CHLORIDE - SERUM 101 mmol/L (98-107); CREATININE - SERUM 0.7 mg/dL (0.6-1.3); GLUCOSE 97 mg/dL (74-106); POTASSIUM - SERUM 4.2 mmol/L (3.5-5.1); PROTEIN - SERUM 6.9 g/dL (6.4-8.2); SODIUM 138 mmol/L (136-145); UREA NITROGEN 5 mg/dL (7-18); eGFR NON AFRICAN AMERICAN > 90 mL/min (90-120)
[2019-07-17 13:42] LABS: CKMB 1.1 U/L (0.0-3.6); CREATINE KINASE 89 UL (21-215)
[2019-07-17 13:43] LABS: TROPONIN-I < 0.017 ng/mL (0.000-0.060)
[2019-07-17] MEDS ORDERED: EFFEXOR XR150 MG PO (18:02)
[2019-07-17 18:10] VITALS: BP 145/65; Ht 170.2 cm; Wt 66.1 kg
--- NOTE | 2019-07-17 18:28 | NUR ---
NEW PATIENT ADMIT FROM ER VIA WC AND HOSPITAL STAFF. PATIENT TRANSFERRED TO BED . PATIENT IS IN NO ACUTE DISTRESS. DENIES ANY NEEDS OR PAIN. PATIENT IS STABLE AND VSS. PATIENT PLACE IN [facility] GOWN AND TLEMETRY APPLIED. WILL CONITNUE WITH PLAN OF CARE. SR UP X 2 BED IN LOW POSITION AND CALL LIGHT IN REACH.
[2019-07-17 20:00] VITALS: BP 101/48
--- NOTE | 2019-07-17 20:00 | NUR ---
EVENING ROUNDS COMPLETED. VSS, AAOX3, NO S/S OF DISTRESS. PT CURRENTLY IN BED WITH EYES CLOSED. NPO AFTER MIDNIGHT CONSENT SIGNED FOR HEART CATH. REGGIE JOLLY PROVIDED PER PT REQUEST. PT DENIES ANY FURTHER NEEDS AT THIS TIME. WILL CPOC. CL WITHIN REACH, BED IN LOW, SR UP X2.
[2019-07-18 04:00] VITALS: BP 134/63
--- NOTE | 2019-07-18 07:10 | NUR ---
REPORT RECEIVED FROM COTTON FEEDER AND PATIENT CARE ASSUMED. PATIENT LAYING IN BED AWAKE, ALERT AND ORIENTED X 4. PATIENT IS STABLE AND VSS. PATIENT DENIES ANY NEEDS OR PAIN. WILL CONTINUE TO MONITOR. SR UP X 2 BED IN LOW POSITION AND CALL LIGHT IN REACH.
--- NOTE | 2019-07-18 08:00 | NUR ---
PATIENT IS STABLE AND VSS. RECEIVED CALL BUDGET ASSISTANT TEAM TO PREOP PATIENT. PREOP COMPLETED PER JAN. SR UP X 2 BED IN LOW POSITION AND CALL LIGHT IN REACH.
--- NOTE | 2019-07-18 09:30 | NUR ---
PATIENT TO JUNIOR PROGRAMMER VIA HOSPITAL BED AND JUNIOR PROGRAMMER TEAM. PATIENT IS STABLE AND VSS.
--- NOTE | 2019-07-18 10:23 | HP ---
PATIENT: FABIAN CHEEMA MEDICAL RECORD: [id number] ACCOUNT: [id number] LOCATION:[address] : 68 ADMISSION DATE: 07/17/19 PCP: MARCIA TOM MD HISTORY AND PHYSICAL EXAMINATION DIAGNOSES: 1. Unstable angina. 2. Coronary artery disease. 3. Hypertension. 4. Previous multivessel percutaneous transluminal coronary angioplasty stent. HISTORY OF PRESENT ILLNESS: Mrs. Cheema presents with class IV unstable anginal symptomatology, it has been going on for the past few weeks. Last cardiac intervention was in September. She has had multiple interventions in the past. At the time of her last cardiac intervention, Dr. Beaulieu fixed the 80% left circumflex. However, there was greater than 50% stenosis of the LAD at that time. She does have hypertension, hyperlipidemia, family history of coronary artery disease. She has had aspirin within the past 24 hours. PHYSICAL EXAMINATION: CONSTITUTIONAL/GENERAL APPEARANCE: Well nourished, well developed, appears stated age. EYES: Lids and conjunctivae noninjected. No discharge. No pallor. ENT: Lips within normal limit. No cyanosis. No pallor. NECK: Carotid arteries, bilateral normal upstroke. No bruits. No thrills. No jugular venous pressure or distention. CERVICAL LYMPH NODES: Nontender. Nonenlarged. THYROID: Not enlarged. No nodules. CARDIOVASCULAR: Precordial exam, nondisplaced. No heaves or pericardial thrills. Rate and rhythm, regular. Heart sounds, normal S1, normal S2. No S3, no gallop, no rub. Systolic murmur, not heard. Diastolic murmur, not heard. RESPIRATORY: Respiratory effort, unlabored. Normal curvature. No thoracic deformity. No chest wall tenderness. Percussion, resonant. Auscultation, clear. No wheezes, no rales, no rhonchi. ABDOMEN: Soft, nondistended, nontender. No abdominal pain, no vomiting and normal appetite. MUSCULOSKELETAL: No joint tenderness, normal gait, normal tone. SKIN: Warm and dry. OVERALL IMPRESSION: Class IV unstable angina just like that of her previous angina with a past history of multivessel PTCA stent, the last being in September. At this time, most likely she does have recurrent hemodynamically significant coronary artery disease. We will proceed with coronary angiography. Further care depends upon findings of the angiography. TRANSINT:[id number] Voice Confirmation ID: [id number] DOCUMENT ID: [id number] HISTORY AND PHYSICAL [id number] FABIAN CHEEMA JEFFREY MD at 1023 CC: [id number] DICTATION DATE: 07/17/19 1405 RADIOPHARMACIST: 07/17/19 1416 REG [facility] [address] [id number]
[2019-07-18] MEDS ORDERED: PLAVIX75 MG PO (10:29)
[2019-07-18] MEDS ORDERED: BAYER CHEWABLE81 MG PO (10:29)
--- NOTE | 2019-07-18 10:35 | NUR ---
PT ARRIVED BY STRETCHER. PLACED ON MONITORS. ASSESSMENT COMPLETED. CALL LIGHT WITHIN REACH. NO FAMILY WITH PT. SHE REPORTS SHE DOES NOT WANT ANYONE CALLED AND SHE WILL TAKE AN UBER HOME.
--- NOTE | 2019-07-18 10:50 | NUR ---
RIGHT GROIN DRESSING C/D/I. NO S/S OF HEMATOMA NOTED. CALL LIGHT WITHIN REACH. VSS. RIGHT PEDAL PULSE PALPABLE AND FOOT WARM TO TOUCH. DENIES NAUSEA/PAIN AT THIS TIME.
--- NOTE | 2019-07-18 11:20 | NUR ---
RIGHT GROIN DRESSING C/D/I. NO S/S OF HEMATOMA NOTED. CALL LIGHT WITHIN REACH. VSS. NO NEEDS AT THIS TIME.
--- NOTE | 2019-07-18 11:48 | NUR ---
RIGHT GROIN DRESSING C/D/I. NO S/S OF HEOMATOMA NOTED. CALL LIGHT WITHIN REACH. VSS. NO NEEDS AT THIS TIME.
--- NOTE | 2019-07-18 11:58 | NUR ---
PT C/O BACK PAIN. GIVEN ZANAFLEX REQUESTED. RATES IT A 4/10 AT THIS TIME. CHRONIC. VSS. RIGHT GROIN DRESSING C/D/I. NO S/S OF HEMATOMA NOTED. CALL LIGHT WITHIN REACH.
--- NOTE | 2019-07-18 12:30 | NUR ---
PT RESTING COMFORTABLY. REPORTS PAIN IS BETTER. RATES IT 12/18. RIGHT GROIN DRESSING C/D/I. NO S/S OF HEMATOMA NOTED. CALL LIGHT WITHIN REACH.
--- NOTE | 2019-07-18 13:15 | NUR ---
RIGHT GROIN DRESSING C/D/I. NO S/S OF HEMATOMA NOTED. HEAD OF BED INC TO 30 DEGREES. TOLERATED WELL. SET UP WITH SANDWICH TRAY AND DRINK. VSS.
--- NOTE | 2019-07-18 13:45 | NUR ---
LEFT ARM PIV D/C'D WITH CATH TIP INTACT. PT TOLERATED WELL. AMBULATED TO RESTROOM. VOIDED WITHOUT DIFFICULTY.
--- NOTE | 2019-07-18 13:50 | NUR ---
RIGHT GROIN DRESSING C/D/I. NO S/S OF HEMATOMA NOTED. DISCUSSED DISCHARGE INSTRUCTIONS WITH PT. SHE VOICED UNDERSTANDING. PT INSTRUCTED TO GET DRESSED. SHE WILL CALL AN UBER FOR PICKUP
--- NOTE | 2019-07-18 14:08 | NUR ---
PT TAKEN OUT BY WHEELCHAIR TO SIT IN LOBBY. SHE WANTED TO WAIT ON HER UBER OUT THERE. DID NOT WANT TO WAIT IN OUTPATIENT ROOM. NO S/S OF DISTRESS NOTED. ALL BELONGINGS AND PAPERWORK IN HAND.
--- NOTE | 2019-07-19 14:32 | OP ---
PATIENT NAME: FBAIAN CHEEMA MEDICAL RECORD: [id number] :68 LOCATION:D.CAT ADMISSION DATE: SURGEON: JUN LANE MD DATE OF OPERATION: 07/18/2019 PROCEDURES: 1. Laser atherectomy, PTCA LAD. 2. Left heart catheterization. 3. Selective coronary angiography. 4. Left ventriculogram. 5. IFR RCA. 6. IFR LAD. INDICATION: Unstable angina and coronary artery disease. PROCEDURE IN DETAIL: After informed consent was obtained and after a detailed description of the risks, benefits as well as alternative therapies, the patient elected to proceed with angiogram and angioplasty. The right femoral area was prepped and draped in normal sterile fashion. Right femoral artery was cannulated via modified Seldinger technique with placement of 6-Citizen Of [place] sheath. All catheters exchanged through this sheath. FINDINGS: Left ventriculogram was performed in standard 30-degree ZARCO view, reveals good cardiac wall motion throughout all segments. Overall ejection fraction estimated 60%. SELECTIVE CORONARY ANGIOGRAPHY: 1. The right coronary artery has previously placed stents that are widely patent with no significant restenosis. There is a questionable stenosis proximally; however, IFR was normal. 2. Left circumflex has previously placed stents. These are widely patent with no significant in-stent restenosis. No disease elsewise throughout the left circumflex or its branches. 3. Left anterior descending has previously placed stents. There is a 70% in-stent restenosis. IFR is significantly abnormal at 0.80. LASER ATHERECTOMY, PTCA OF THE RCA: Multiple passes were made with a laser catheter at 80/40. Ballooning was undertaken with a 3.5 balloon to 21 atmospheres. Result was 0% residual. OVERALL IMPRESSION: Successful PTCA laser atherectomy of in-stent restenosis of the LAD going from 70% initial stenosis with a grossly abnormal IFR to 0% residual. TRANSINT:[id number] Voice Confirmation ID: [id number] DOCUMENT ID: [id number] JUN LANE MD at 1432 CC: [id number] DICTATION DATE: 07/18/19 1029 MANAGER COMMODITIES: 07/18/19 1258 DEP CLI 07/18/19 [place] [address]
--- NOTE | 2019-07-19 14:32 | DS ---
PATIENT:FABIAN CHEEMA :68 MEDICAL RECORD: [id number] DISCHARGE SUMMARY ADMISSION DATE: 07/17/19 DISCHARGE DATE: 07/18/19 DATE OF DISCHARGE: 1. Laser atherectomy, PTCA, LAD. 2. Unstable angina. 3. Coronary artery disease. 4. Hypertension. 5. Hyperlipidemia. HOSPITAL COURSE: Mrs. Cheema presents with unstable anginal symptomatology, found to have in-stent restenosis of the LAD, underwent laser atherectomy, PTCA of this territory with excellent result. No further anginal symptomatology. Discharged home with the addition of Plavix to her medical regimen. Follow up with [facility] in 1 month. TRANSINT:[id number] Voice Confirmation ID: [id number] DOCUMENT ID: [id number] JUN LANE MD at 1432 CC: [id number] DICTATION DATE: 07/18/19 1027 LABORATORY TECH: 07/19/19 0445 DEP CLI 07/18/19 [place] [address] [place] [address]
== END 2019-07-18 14:08 | disposition home or self-care (01) ==
LOC: D.CATH 12:00 → D.ER 12:00 → D.M2 12:00 → EDSTATUS 14:14 → D.M2 17:58 → D.SDCHOLD 07-18 07:49 → D.M2 07-18 07:49 → D.CLR 07-18 10:32 → D.CATH 07-18 14:08
PROVIDERS: Family Medicine; ATTEND Internal Medicine Interventional Cardiology
DX: I25.110 Atherosclerotic heart disease of native coronary artery with unstable angina pectoris (principal); T82.855A Stenosis of coronary artery stent, initial encounter; Z01.812 Encounter for preprocedural laboratory examination

== ENCOUNTER → 2019-09-18 13:10 | Outpatient (CLI) | payer MEDICARE ==
[2019-07-17 18:10] VITALS: BMI 22.8
== END | disposition home or self-care (01) ==
LOC: D.US 13:10
PROVIDERS: ATTEND Internal Medicine
DX: E05.90 Thyrotoxicosis, unspecified without thyrotoxic crisis or storm (principal)

== ENCOUNTER 2020-03-19 02:51 | Observation (INO) | payer MEDICARE ==
[2020-03-19] VITALS (7 sets, daily range): BP systolic 112–155; BP diastolic 52–70
--- NOTE | ~2020-03-19 | HEMODYNAMI ---
PATIENT:FABIAN CHEEMA MEDICAL RECORD: [id number] : 68 LOCATION:[facility] D.2[address] [facility]# [id number] ADMISSION DATE: 03/19/20 Generatedon:03/19/202014:37 Patient name: FABIAN CHEEMA Patient #: [id number] SSN: [id number] : 1970 Date of study: 03/19/2020 Page: Of Hemodynamic Procedure Report Patient Data Patient Demographics Procedure consent was obtained First Name: FABIAN Gender: Female Last Name: ANETTE : 1970 Middle Initial: D Age: 49 year(s) Patient #: [id number] Race: SSN: [id number] Additional ID: [id number] Contact details Address: [address] [place] [address] State: [place] City: [facility] [place] Zip code: [address] Past Medical History Allergies Allergen Reaction Date Comments Reported Penicillins 12/06/2014 Other allergy 06/09/2017 PCN, Ropinirole Other allergy 09/20/2017 PCN, HYDROCODONE, ROPINIROLE Other allergy 03/30/2018 Ropininole, hydrocodone, PCNs Other allergy 03/19/2020 PCN, HYDOCODONE,ROPINIROLE Admission Admission Data Admission Date: 03/19/2020 Admission Time: 4:10 Arrival Date: 03/19/2020 Arrival Time: 0:00 Admit Source: Other Insurance Payor: Medicare Room #: D.2124 [facility] #: [id number] Height (in.): 60 Height (cm.): 152.4 Lab Results Lab Result Date: 03/19/2020 Lab Result Time: 0:00 Biochemistry Name Units Result Min Max BUN mg/dl 14 --(--*-)-- 7 18 Creatinine mg/dl 0.8 --(-*--)-- 0.6 1.3 CBC Name Units Result Min Max Hemoglobin g/dl 11.1 *-(----)-- 13.5 17.5 Procedure Procedure Types Cath Procedure Diagnostic Procedure [facility] w/Coronaries Sedation Charges Moderate Sedation up to 30 minutes Peripheral Cath Diagnostic Procedure Section 8 Property Manager Peripheral Procedures Four Vessel Arteriogram Procedure Description Procedure Date Procedure Date: 03/19/2020 Procedure Start Time: 14:22 Procedure End Time: 14:34 Procedure Staff Name Function Scottie Chamorro MD Performing Physician Floresita Escamilla RT Monitor Milena Erwin RN Nurse Agatha Nina RT Scrub Procedure Data Cath Procedure Fluoroscopy Diagnostic fluoroscopy Total fluoroscopy Time: 2.3 time: 2.3 min min Diagnostic fluoroscopy Total fluoroscopy dose: 547 dose: 547 mGy mGy Contrast Material Contrast Material Type Amount (ml) Isovue 300 79 Entry Location Entry Primary Successful Side Size Upsize Upsize Entry Closure Succes sful Closure Location (Fr) 1 (Fr) 2 (Fr) Remarks Device Remarks Femoral Right 5 Fr Exoseal artery Estimated blood loss: 10 ml Diagnostic catheters Device Type Used For End Catheter Placement MULTIPACK JL 4.0 5Fr Procedure catheter MULTIPACK 3DRC 5Fr Procedure catheter MULTIPACK Pigtail 5 Fr Ventriculography catheter Procedure Complications No complications Procedure Medications Medication Administration Route Dosage 0.9% NaCl I.V. 100 ml/hr Oxygen etCO2 Nasal cannula 2 l/min Lidocaine 2% added to field 20 Heparin Flush Bag added to field 2 bags (1000units/500ml NS) Versed I.V. 2 mg Fentanyl I.V. 50 mcg Versed I.V. 2 mg Fentanyl I.V. 50 mcg Hemodynamics Rest HGB: 11.1 (g/dl) Heart Rate: 54 (bpm) Pressure Samples Time Site Value (mmHg) Purpose Heart Use Rate(bpm) 14:31 LV 124/-7,16 Snapshot 65 Gradients Valve Time Site Site Mean SEP/DFP Peak To Heart Use 1 2 (mmHg) (sec/min) Peak Rate (mmHg) (bpm) Aortic 14:32 LV AO 66 Snapshots Pre Cath Intra NCS Post Cath Vital Signs Time Heart Resp SPO2 etCO2 NIBP (mmHg) Rhythm Pain Sedation Rate (ipm) (%) (mmHg) Status Level (bpm) 13:43:58 53 15 98 46.7 148/71(119) SB 0 (11) 10(A) , No pain 13:48:20 56 14 98 48.9 108/57(90) SB 0 (11) 10(A) , No pain 13:52:28 55 14 98 48.9 115/60(89) SB 0 (11) 10(A) , No pain 13:56:38 55 14 97 45.1 112/62(93) SB 0 (11) 10(A) , No pain 14:00:46 56 16 98 45.1 103/58(84) SB 0 (11) 10(A) , No pain 14:04:52 56 14 98 44.4 109/57(84) SB 0 (11) 10(A) , No pain 14:08:59 55 13 99 45.9 109/59(91) SB 0 (11) 10(A) , No pain 14:13:08 55 15 99 44.4 112/56(82) SB 0 (11) 10(A) , No pain 14:17:17 53 14 98 45.1 109/58(83) SB 0 (11) 10(A) , No pain 14:21:25 56 15 98 45.1 113/58(98) SB 0 (11) 9(A) , No pain 14:26:24 70 14 98 51.1 Measuring SB 0 (11) 9(A) , No pain 14:26:26 70 14 98 51.1 140/75(120) SB 0 (11) 9(A) , No pain 14:30:44 65 12 98 55 135/61(109) SB 0 (11) 10(A) , No pain 14:35:00 62 14 97 47.4 121/60(87) SB 0 (11) 10(A) , No pain Medications Time Medication Route Dose Verified Delivered Reason Notes Eff ectiveness by by 13:40:37 0.9% NaCl I.V. 100 Scottie Milena used for ml/hr Ashtyn Rip procedure MD BERMUDEZ 13:40:43 Oxygen etCO2 2 Scottie Milena used for Nasal l/min Ashtyn Rip procedure cannula MD BERMUDEZ 13:40:47 Lidocaine 2% added 20ml Scottie Perazaory for local to vial [facility] anesthetic field MD PATHAK 13:40:54 Heparin Flush added 2 Scottie Scottie used for Bag to bags Ashtyn Ashtyn procedure (1000units/500ml field MD PATAHK NS) 14:08:51 Versed I.V. 2 mg Scottie Milena for Ashtyn Rip sedation MD BERMUDEZ 14:08:59 Fentanyl I.V. 50 Scottie Abbott for [facility] Erik pemberton MD, RN 14:14:44 Versed I.V. 2 mg Scottie Pitts MD, RN 14:14:50 Fentanyl I.V. 50 Scottie Abbott for [facility] Erik pemberton MD, RN Procedure Log Time Note 13:22:40 Arrival Date: 03/19/2020 12:00:00 AM 13:22:51 Admit Source: Other 13:22:56 Insurance Payor : Medicare 13:23:03 Patient Height : 60 inches 13:24:22 Lab Result : Hemoglobin 11.1 g/dl 13:24:22 Lab Result : Creatinine 0.8 mg/dl 13:24:22 Lab Result : BUN 14 mg/dl 13:25:36 Diagnostic Cath Status : Urgent 13:25:41 Floresita Escamilla RT(R) sent for patient. Start room use. 13:27:02 Procedure Status Urgent Heart Cath (IP). 13:36:43 Time tracking: Regular hours (M-F 7:00 - 5:00) 13:36:50 Plan of Care:Hemodynamics will remain stable., Cardiac rhythm will remain stable., Comfort level will be maintained., Respiratory function will remain adequate., Patient/ family verbilizes understanding of procedure., Procedure tolerated without complication., Recovers from procedure without complications.. 13:37:25 Patient received from Med II to [facility] 2 Alert and oriented. Tansferred to table in Supine position. 13:37:30 Signed procedure consent form obtained from patient. 13:37:32 Warm blankets applied, and sandra hugger turned on for patient comfort. 13:37:32 Correct patient and procedure confirmed by team. 13:37:33 ECG and BP/O2 sat monitors applied to patient. 13:40:37 0.9% NaCl 100 ml/hr I.V. was administered by Milena Erwin RN; used for procedure; Verbal order read back and verified. 13:40:43 Oxygen 2 l/min etCO2 Nasal cannula was administered by Milena Erwin RN; used for procedure; Verbal order read back and verified. 13:40:47 Lidocaine 2% 20ml vial added to field was administered by Scottie Chamorro MD; for local anesthetic; Verbal order read back and verified. 13:40:54 Heparin Flush Bag (1000units/500ml NS) 2 bags added to field was administered by Scottie Chamorro MD; used for procedure; Verbal order read back and verified. 13:42:42 Vital chart was started 13:42:56 Baseline sample Acquired. 13:43:00 Full Disclosure recording started 13:43:14 H&P Date Dictated: 03/19/2020 Within 30 days and on chart., H&P Addendum completed by physician on day of procedure. (MUST COMPLETE FOR ALL OUTPATIENTS). 13:43:16 Pre-procedure instructions explained to patient. 13:43:25 Family unavailable. 13:43:27 Patient NPO since Midnight. 13:44:19 Patient allergic to Other allergyPCN, HYDOCODONE,ROPINIROLE 13:44:22 Is the patient allergic to Iodine/contrast media? No. 13:44:28 Was the patient premedicated? Yes 13:44:29 Is patient on blood thinner?Yes 13:44:32 ACC The patient was administered the following blood thiners within the last 24 hours: ACCPlavix 13:44:34 Patient diabetic? No. 13:44:50 Patient not . Patient has had hysterectomy. 13:44:52 Snore? Yes 13:44:53 Sleep apnea? Yes 13:44:55 Deviated septum? No 13:45:08 Dentures? No ? 13:45:26 Patient pain scale 0/10 ?. 13:45:36 IV patent on arrival in left forearm with 0.9% NaCl at [facility]. 13:45:42 Lab results completed and on chart. 13:45:53 Right groin area was prepped with chlora-prep and draped in sterile fashion 13:45:55 Alarms reviewed by R. N. 13:45:55 Sharps counted by scrub and verified by R.N. 14:01:27 Zero performed for pressure channel P1 14:03:33 Baseline sample Acquired. 14:07:58 Physician arrived 14:07:59 --------ALL STOP TIME OUT------ 14:07:59 Final Timeout: patient, procedure, and site verified with staff and physician. All members of the team are in agreement. 14:08:11 Right groin site verified by team. 14:08:14 Fire Safety Assessment: A--An alcohol-based skin anteseptic being used preoperatively., C--Open oxygen or nitrous oxide is being used., D--An ESU, laser, or fiber-optic light is being used. 14:08:19 Physical assessment completed. ASA score P 3 - A patient with severe systemic disease as per Scottie Chamorro MD. 14:08:29 2) 60-89 Mildly reduced kidney function, and other findings (as for stage 1) point to kidney disease. 14:08:33 Sedation plan: IV Moderate Sedation Medication:Versed, Fentanyl 14:08:51 Versed 2 mg I.V. was administered by Milena Erwin RN; for sedation; Verbal order read back and verified. 14:08:59 Fentanyl 50 mcg I.V. was administered by Milena Erwin RN; for sedation; Verbal order read back and verified. 14:09:53 Maximum allowable contrast dose (3.7 X eGFR X 0.75)222 ml. 14:09:59 Use device set Femoral Dx 14:10:02 ACIST Syringe (57577) opened to sterile field. 14:10:02 Bag Decanter (2002S) opened to sterile field. 14:10:03 Medline Cath Pack ([id number]) opened to sterile field. 14:10:05 ACIST Hand Control (81102) opened to sterile field. 14:10:06 ACIST Manifold (55572) opened to sterile field. 14:10:08 DIAGNOSTIC Multipack 5Fr catheter set (AC5766) opened to sterile field. 14:10:09 Tegaderm 4 x 4 (1626W) opened to sterile field. 14:10:17 SHEATH 5FR [place] (GIO585) opened to sterile field. 14:10:18 EMERALD Guide Wire (743-021) opened to sterile field. 14:14:44 Versed 2 mg I.V. was administered by Milena Erwin RN; for sedation; Verbal order read back and verified. 14:14:50 Fentanyl 50 mcg I.V. was administered by Milena Erwin RN; for sedation; Verbal order read back and verified. 14:22:22 Procedure started. 14:22:48 Local anesthetic to right femoral artery with Lidocaine 2% by Scottie Chamorro MD.INITIAL ACCESS ONLY 14:23:26 A 5 Fr sheath was inserted into the Right Femoral artery 14:25:03 A MULTIPACK JL 4.0 5Fr catheter was advanced over the wire and used for Procedure. 14:25:52 LCA angiography performed. 14::57 Catheter removed. 14:28:32 A MULTIPACK 3DRC 5Fr catheter was advanced over the wire and used for Procedure. 14:28:45 Right carotid angiography performed. 14:28:46 Left carotid angiography performed. 14:29:07 Procedure type changed to Cath procedure, Diagnostic procedure, LHC, LHC w/Coronaries, Sedation Charges, Moderate Sedation up to 30 minutes, Peripheral Cath Diagnostic Procedure, Section 8 Property Manager Peripheral Procedures, Four Vessel Arteriogram 14:30:05 RCA angiography performed. 14:30:07 Catheter removed. 14:30:30 A MULTIPACK Pigtail 5 Fr catheter was advanced over the wire and used for Ventriculography. 14:30:32 EXOSEAL 5Fr (EX500) opened to sterile field. 14:32:07 EF : 40 % 14:32:08 Catheter removed. 14:32:37 Sheath removed intact; hemostasis achieved with Exoseal to the Right Femoral artery. 14:32:39 Procedure ended.(Physican Out) 14:32:50 Fluoroscopy time 02.30 minutes. 14:32:54 Fluoroscopy dose: 547 mGy 14:32:54 Flurop Dose total: 547 14:33:10 Dose Area Product 44920 mGy/cm. 14:33:14 Contrast amount:Isovue 300 79ml. 14:33:17 Maximum allowable dose exceeded? No. 14:33:18 Sharps counted by scrub and verified by R.N. 14:33:19 Insertion/operative site no bleeding no hematoma. 14:33:22 Post-op/insertion site Right Femoral artery dressed using a 4 x 4 and Tegaderm. 14:33:24 Post Procedure Pulses reassessed and unchanged 14:33:27 Post-procedure physical assessment completed. ASA score P 2 - A patient with mild systemic disease as per Scottie Chamorro MD. 14:33:30 Estimated blood loss: 10 ml 14:33:32 Post procedure instruction explained to patient.Patient verbalizes understanding. 14:34:00 Procedure and supply charges have been captured, reviewed, submitted and are correct. 14:34:19 Procedure Complication : No complications 14:34:25 Vital chart was stopped 14:34:26 [facility] Findings: mild to moderate CAD (<70%) 14:34:33 4Vessel Findings: mild to moderate disease (<70%, see procedure notes) 14:34:35 Operative report dictated upon procedure completion. 14:34:36 See physician's report for complete and final results. 14:34:38 Report given to [facility] II. 14:34:42 Patient transfered to [facility] II with Bed. 14:34:44 Procedure ended. 14:34:44 Full Disclosure recording stopped 14:34:50 End room use (Document Last) Device Usage Item Name Manufacture Quantity Catalog Hospital Part Current Minimal L ot# / Number Charge Number Stock Stock Serial# Code ACIST Acist 1 70430 809676 037056 942640 20 Syringe Medical (10206) Systems Inc Bag Microtek 1 826669 85802 879917 5 Decanter Medical Inc. () Medline Medline 1 [id number] 970959 45217 174908 5 Cath Pack ([id number]) ACIST Hand Acist 1 68275 544944 988725 455969 5 Control Medical (24670) Systems Inc ACIST Acist 1 30210 317893 922422 926530 5 Manifold Medical (34371) Systems Inc DIAGNOSTIC Cardinal 1 BD1914 576732 80528 246011 30 Multipack Health 5Fr catheter set (EQ9161) Tegaderm 4 3M 1 1626W 433200 854490 002501 5 x 4 (1626W) SHEATH 5FR Terumo 1 HPH359 324528 097371 695647 5 [place] (QSQ501) EMERALD Cardinal 1 502-455 221047 165829 574804 5 Guide Wire Health (502455) MULTIPACK Cardinal 1 306893 5 JL 4.0 5Fr Health catheter MULTIPACK Cardinal 1 513834 5 3DRC 5Fr Health catheter MULTIPACK Cardinal 1 749552 5 Pigtail 5 Health Fr catheter EXOSEAL 5Fr Cardinal 1 EX500 736836 750054 603795 10 (EX500) Health Signature Audit Neal Stage Time Signature Unsigned Intra-Procedure 03/19/2020 Floresita Escamilla 2:35:45 PM RT(R) Intra-Procedure 03/19/2020 Milena Erwin 2:36:30 PM RN Intra-Procedure 03/19/[address] 2:37:51 PM Erik Signatures Performing Physician : Signature : Scottie Chamorro MD Date : Time : Monitor : Floresita Escamilla Signature : RT Date : Time : Nurse : Milena Erwin RN Signature : Date : Time : [facility] [address] [place] [address]
[2020-03-19 03:20] LABS: HEMATOCRIT 36.1 % (36.0-48.0); HEMOGLOBIN 11.1 g/dL (12-16); LYMPHOCYTES 36.2 % (15-50); MCH 23.5 pg (26.0-34.0); MCHC 30.7 g/dL (31.0-37.0); MCV 76.3 fL (80.0-100.0); MEAN PLATELET VOLUME 8.9 fL (7.4-10.4); NEUTROPHILS 54.9 % (40-80); PLATELET COUNT 247 10x3/uL (130-400); RBC 4.73 10x6/uL (4.00-5.40); RDW 20.6 % (11.5-14.5); WBC 8.7 10x3/uL (4.8-10.8)
[2020-03-19 03:38] LABS: CALC OSMOLALITY 276 mosm/kg (275-300); CALCIUM 8.8 mg/dL (8.5-10.1); CARBON DIOXIDE 26.9 mmol/L (21.0-32.0); CHLORIDE - SERUM 102 mmol/L (98-107); CREATININE - SERUM 0.8 mg/dL (0.6-1.3); GLUCOSE 98 mg/dL (74-106); SODIUM 138 mmol/L (136-145); UREA NITROGEN 14 mg/dL (7-18); eGFR NON AFRICAN AMERICAN 80 mL/min (90-120)
[2020-03-19 03:45] LABS: APTT 24.1 SECONDS (22.8-39.4); INR 0.9 (0.85-1.17); PROTIME 12.1 SECONDS (11.6-15.0)
[2020-03-19 03:53] LABS: ALBUMIN 3.5 g/dL (3.4-5.0); ALKALINE PHOSPHATASE 78 U/L (30-120); ALT (SGPT) 21 U/L (10-68); BILIRUBIN - TOTAL 0.15 mg/dL (0.2-1.3); CKMB 1.4 U/L (0.0-3.6); CREATINE KINASE 119 UL (21-215); MAGNESIUM - SERUM 2.1 mg/dL (1.8-2.4); PROTEIN - SERUM 7.3 g/dL (6.4-8.2); TROPONIN-I < 0.017 ng/mL (0.000-0.060)
--- NOTE | 2020-03-19 05:25 | NUR ---
RECEIVED FROM ER, A&O, MEDS AND HISTORY COMPLETE, BED IS LOW, SRX2, CALL LIGHT IN REACH, WILL CONTINUE PLAN OF CARE
[2020-03-19] MEDS ORDERED: LISINOPRIL5 MG PO (05:33)
--- NOTE | 2020-03-19 07:48 | NUR ---
RECIEVE REPORT. ALERT AND ORIENTED X4. LAYING IN BED. SINUS RYTHM ON TELEMETRY. DENIES PAIN OR SOB. CONTINUE PLAN OF CARE AND SAFETY PRECAUTIONS.
[2020-03-19 08:14] LABS: CKMB 1.6 U/L (0.0-3.6); CREATINE KINASE 109 UL (21-215); TROPONIN-I < 0.017 ng/mL (0.000-0.060)
--- NOTE | 2020-03-19 09:57 | NUR ---
ALERT AND ORIENTED X4. SITTING UP IN BED. CONSENTS FOR [employer] SIGNED ON CHART. DENIES ANY NEEDS AT THIS TIME. CONTINUE PLAN OF CARE AND SAFETY PRECAUTIONS.
[2020-03-19 10:51] LABS: HEMATOCRIT 38.5 % (36.0-48.0); HEMOGLOBIN 11.6 g/dL (12-16); LYMPHOCYTES 38.2 % (15-50); MCH 23.2 pg (26.0-34.0); MCHC 30.1 g/dL (31.0-37.0); MEAN PLATELET VOLUME 9.4 fL (7.4-10.4); NEUTROPHILS 51.8 % (40-80); PLATELET COUNT 275 10x3/uL (130-400); RDW 20.8 % (11.5-14.5); WBC 8.8 10x3/uL (4.8-10.8)
[2020-03-19 10:57] LABS: ALT (SGPT) 26 U/L (10-68); CALC OSMOLALITY 280 mosm/kg (275-300); CARBON DIOXIDE 27.2 mmol/L (21.0-32.0); CHLORIDE - SERUM 103 mmol/L (98-107); CHOLESTEROL, TOTAL 226 mg/dL (0-200); CREATININE - SERUM 0.8 mg/dL (0.6-1.3); GLUCOSE 97 mg/dL (74-106); HDL CHOLESTEROL 57 mg/dL (32-96); LDL CHOLESTEROL 148 mg/dL (0-100); LDL-HDL RATIO 2.6 ratio (1.5-3.5); POTASSIUM - SERUM 4.3 mmol/L (3.5-5.1); SODIUM 141 mmol/L (136-145); TRIGLYCERIDE 105 mg/dL (30-200); UREA NITROGEN 12 mg/dL (7-18); eGFR NON AFRICAN AMERICAN 80 mL/min (90-120)
--- NOTE | 2020-03-19 12:19 | NUR ---
Pt admitted this morning. No skin impairment noted. Will monitor as needed.
[2020-03-19 13:18] LABS: CKMB 1.2 U/L (0.0-3.6); CREATINE KINASE 94 UL (21-215); TROPONIN-I < 0.017 ng/mL (0.000-0.060)
--- NOTE | 2020-03-19 13:40 | NUR ---
TAKEN TO WHOLESALE AGRONOMIST VIA BED.
--- NOTE | 2020-03-19 15:03 | NUR ---
ARRIVE BACK TO ROOM VIA BED FROM MAIL DISTRIBUTOR. SEDATED, AROUSES TO STIMULI. RT GROIN DRESSING C/D/I. FREE FROM BLEEDING. FREE FROM HEMATOMA. BP-131/57, HR-63 SINUS RYTHM, O2-97% WITH 2L NC. PULSE PALPABLE BILATERALLY. CONTINUE PLAN OF CARE AND SAFETY PRECAUTIONS.
[2020-03-19] MEDS ORDERED: ALDACTONE25 MG PO (16:49)
--- NOTE | 2020-03-19 18:19 | NUR ---
ALERT AND ORIENTED X4. SITTING UP IN BED. UNABLE TO STAY AWAKE TO FINISH DINNER. INFORM OF DISCHARGE. UNABLE TO ANSWER WHO WILL BE TRANSPORT HOME. DISCHARGE PAPERWORK COMPLETE, WAITING UNTIL MORE ALERT.
--- NOTE | 2020-03-19 19:32 | NUR ---
IV TO LEFT AC REMOVED, TIP INTACT. D/C PAPERS SIGNED AND EXPLAINED TO PT. DRSG TO RIGHT GROIN C/D/I. NO SWELLING, BLEEDING OR HEMATOMA NOTED.
--- NOTE | 2020-03-20 08:24 | OP ---
PATIENT NAME: FABIAN CHEEMA MEDICAL RECORD: [id number] :68 LOCATION:[facility] D.2123 ADMISSION DATE:03/19/20 SURGEON: SAAD DANG MD DATE OF OPERATION: 03/19/2020 PROCEDURE: Catheterization, 4-vessel arteriography, right femoral artery approach. CATHETERS: A 5-Swedish sheath, 5/4 left and right Mirna, 5/4 pig. The procedure was well tolerated. The patient returned to the velasco, sheath removed. ExoSeal device was placed. FINDINGS: Left ventriculography in 30-degree ZARCO view shows mid anterior wall down to the anterior apex hypokinesis. LV function is reduced at 40% to 45%. CORONARY ANATOMY: LEFT MAIN: Left main is free of disease. LAD: An area of previous stenting shows no evidence of significant restenosis, area of previous laser atherectomy is widely patent. CIRCUMFLEX: Circumflex previous intervention is widely patent without evidence of restenosis. No evidence of progression of [place] disease. RIGHT CORONARY ARTERY: Again, no evidence of restenosis. No progression of [place] disease. IMPRESSION: Mildly decreased LV function. No evidence of significant restenosis. No progression of [place] disease. Medical management for coronary artery disease and myopathy at this point. Next right diagnostic catheters placed into the right common carotid. FINDINGS: Right common carotid is a smooth-walled vessel, free of disease. Right internal carotid is smooth-walled vessel, free of disease. Right external carotid, is smooth-walled , free of disease. The catheter was drawn to the left common carotid, it was selectively engaged. It shows a left common carotid, smooth-walled vessel, free of disease. Left internal carotid with some luminal irregularities, but no flow obstructive stenosis. Left external carotid is a smooth-walled without significant stenosis. IMPRESSION: No significant stenosis of either carotid system, only mild luminal irregularities. TRANSINT:[id number] Voice Confirmation ID: [id number] DOCUMENT ID: [id number] SAAD DANG MD at 0824 CC: [id number] DICTATION DATE: 03/19/20 1448 BINDERY CHIEF: 03/19/202128 DIS IN 03/19/20 [facility] [address] [place] [address]
--- NOTE | 2020-03-20 08:24 | CN ---
PATIENT NAME:FABIAN CHEEMA MEDICAL RECORD: [id number] : 68 LOCATION:[id number] ADMIT DATE: 03/19/20 ACCOUNT: [id number] CONSULTING PHYSICIAN: SAAD DANG MD REFERRING PHYSICIAN: FLACO WHITE MD DATE OF CONSULTATION: 03/19/2020 HISTORY OF PRESENT ILLNESS: A 49-year-old female well known to me with a history of coronary artery disease, status post multiple interventions, has a history of ischemic cardiomyopathy improved post-revascularization on therapy, hypertension, hyperlipidemia who presents with a 7-10 day history. Initial symptoms started with left-sided weakness and dizziness, some symptoms consistent with amaurosis of visual changes. Subsequently it was accompanied by her typical angina with chest tightness, pressure with exertion, radiating to the jaw. She has noted a decrease in effort tolerance as well, typically is quite active, working out 4 to 5 days a week, although now has been only walking as opposed to her typical more regular exercise program. We are asked to see her concerning her cardiovascular status. PAST MEDICAL HISTORY: Includes; 1. History of hypertension. 2. Hyperlipidemia. 3. Coronary artery disease. 4. Ischemic cardiomyopathy, improved on therapy. 5. Degenerative arthritis of the cervical and lumbar spine. ALLERGIES: PENICILLIN, HYDROCODONE, ROPINIROLE. MEDICATIONS: Typically include lisinopril 5 mg p.o. every day, Clopidogrel 75 every day, Zanaflex 4 mg every 6 hours, aspirin 81 every day, Effexor 150 every day, tramadol 50 two every 6 hours p.r.n. SOCIAL HISTORY: Nonsmoker and nondrinker. Easily takes care of all her ADLs. Typically does have good exercise program. REVIEW OF SYSTEMS: The patient reports easy bruising but reports no swollen glands. The patient reports no fever, no night sweats, no significant weight gain, no significant weight loss. No significant exercise tolerance. The patient reports no dry eyes, no irritation, no vision change. Patient reports no difficulty hearing and no ear pain. Patient reports no frequent nose bleeds or nose and sinus problems. Patient reports on arm pain on exertion. No shortness of breath while lying down. No history of heart murmur. Patient reports no cough, no wheezing or coughing up blood. Patient reports no abdominal pain, no vomiting. Normal appetite. No diarrhea and not vomiting blood. No nausea and no constipation. Patient reports no incontinence. No difficulty urinating. No hematuria. No increased frequency. Patient reports no muscle aches. No weakness, no arthralgias, no back pain. No swelling of the extremities. Patient reports no abnormal mole, no jaundice, no rashes. Reports no loss of consciousness. No weakness and no numbness. No seizures, dizziness, or headaches. The patient reports no depression, no sleep disturbance, feeling safe in a relationship and no alcohol abuse. Patient reports on fatigue. Reports no runny nose or sinus pressure. No itching, no hives, and no frequent sneezing. PHYSICAL EXAMINATION: CONSULT REPORT [id number] ANETTETOM VoSaud Berg GENERAL: Pleasant female in no acute distress, appears stated age. VITAL SIGNS: Blood pressure 148/70, pulse 80 and regular. HEENT: Normocephalic, atraumatic. NECK: Questionable right carotid bruit. HEART: Regular, II/ systolic ejection murmur, probable S4 gallop. LUNGS: Good air excursion. ABDOMEN: Soft, nontender. EXTREMITIES: Pulses 2+ with no edema. DIAGNOSTIC DATA: EKG shows poor R-wave progression. IMPRESSION: Acute coronary syndrome, worrisome transient ischemic attack type symptomatology with left-sided weakness and amaurosis visual changes. PLAN: For angiography, 4-vessel arteriography. Further recommendations based on the above. TRANSINT:[id number] Voice Confirmation ID: [id number] DOCUMENT ID: [id number] SAAD DANG MD at 0824 CC: [id number] DICTATION DATE: 03/19/20 0853 [facility] [employer] CROPS: 03/19/20 1026 DIS IN 03/19/20 [id number] [place] [address]
== END 2020-03-19 19:48 | disposition home or self-care (01) ==
LOC: D.ER 02:51 → OBSVTIME 04:10 → D.M2 04:10
PROVIDERS: Emergency Medicine; Internal Medicine Interventional Cardiology; ADMIT Family Medicine; ATTEND Family Medicine
DX: I25.110 Atherosclerotic heart disease of native coronary artery with unstable angina pectoris (principal); R55 Syncope and collapse; H53.9 Unspecified visual disturbance; E78.5 Hyperlipidemia, unspecified; I25.5 Ischemic cardiomyopathy; M47.812 Spondylosis without myelopathy or radiculopathy, cervical region; M47.816 Spondylosis without myelopathy or radiculopathy, lumbar region

== ENCOUNTER 2021-01-15 17:13 | Emergency (ER) | payer MEDICARE ==
[~2021-01-15] VITALS: Ht 170.2 cm; Wt 68.2 kg
[~2021-01-15 17:13] MED LIST changes: +DICLOFENAC SODI50 MG PO; +HYDROCODON-ACE1 EA10 PO; +LISINOPRIL5 MG PO
[2021-01-15 17:20] VITALS: Ht 170.2 cm; Wt 68.2 kg
[2021-01-15 18:00] LABS: BASOPHILS 0.5 % (0-2); EOSINOPHILS 3.4 % (0-7); HEMATOCRIT 42.8 % (36.0-48.0); HEMOGLOBIN 14.6 g/dL (12-16); IMMATURE GRANULOCYTES 0.3 % (0-5); LYMPHOCYTE ABS# 3.23 10x3/uL (1.18-3.74); LYMPHOCYTES 30.6 % (15-50); MCH 30.8 pg (26.0-34.0); MCHC 34.1 g/dL (31.0-37.0); MCV 90.3 fL (80.0-100.0); MEAN PLATELET VOLUME 9.9 fL (7.4-10.4); MONOCYTES 8.2 % (2-11); NEUTROPHIL ABS# 6.01 10x3/uL (1.56-6.13); RBC 4.74 10x6/uL (4.00-5.40); RDW 13.7 % (11.5-14.5); WBC 10.6 10x3/uL (4.8-10.8)
[2021-01-15 18:09] LABS: PLATELET COUNT 268 10x3/uL (130-400)
[2021-01-15 18:11] LABS: BILIRUBIN NEGATIVE (NEGATIVE); KETONE NEGATIVE (NEGATIVE); NITRITE NEGATIVE (NEGATIVE); UROBILINOGEN NORMAL mg/dL (< 2)
[2021-01-15 18:14] LABS: BACTERIA MODERATE HPF (NONE SEEN); SQUAMOUS EPITHELIAL 0-5 HPF (0-4); WHITE CELLS - URINE 0-5 HPF (0-4)
[2021-01-15 18:33] LABS: CALC OSMOLALITY 260 mosm/kg (275-300); CARBON DIOXIDE 30.7 mmol/L (21.0-32.0); CHLORIDE - SERUM 96 mmol/L (98-107); CREATININE - SERUM 0.8 mg/dL (0.6-1.3); GLUCOSE 98 mg/dL (74-106); POTASSIUM - SERUM 3.9 mmol/L (3.5-5.1); SODIUM 131 mmol/L (136-145); UREA NITROGEN 7 mg/dL (7-18); eGFR NON AFRICAN AMERICAN 80 mL/min (90-120)
[2021-01-15 18:41] LABS: ALKALINE PHOSPHATASE 76 U/L (30-120); ALT (SGPT) 26 U/L (10-68); AMYLASE - SERUM 61 U/L (25-115); BILIRUBIN - TOTAL 0.67 mg/dL (0.2-1.3); LIPASE 131 U/L (73-393); PROTEIN - SERUM 7.3 g/dL (6.4-8.2); TROPONIN-I < 0.017 ng/mL (0.000-0.060)
[2021-01-15] MEDS ORDERED: LEVSIN/ANASP0.125 MG PO (20:55)
[2021-01-15] MEDS ORDERED: ZOFRAN ODT4 MG/UDTAB PO (20:55)
[2021-01-15] MEDS ORDERED: VISTARIL25 MG PO (20:55)
[2021-01-15 21:35] VITALS: BP 127/47
== END 2021-01-15 21:34 | disposition home or self-care (01) ==
LOC: D.ER 17:13
PROVIDERS: Family Medicine
DX: R10.9 Unspecified abdominal pain (principal); R11.2 Nausea with vomiting, unspecified; I10 Essential (primary) hypertension; Z72.0 Tobacco use